=== PATIENT | female | born 1960 | race African-American/Black ===

== ENCOUNTER 2020-03-06 16:34 | Inpatient (IN) | payer MEDICARE, MEDICAID ==
[2020-03-06] MEDS ORDERED: Guaifenesin DM 100-10/5 ML UDCUP PO PRN (20:11)
[2020-03-06] MEDS ORDERED: Acetaminophen 325 MG TAB PO PRN (20:11)
[2020-03-06] MEDS ORDERED: Calcium Carbonate 500 MG ChewTAB PO PRN (20:11)
--- NOTE | 2020-03-06 20:21 | PDOC.HHP ---
Hospitalist HPI - History of Present Illness weakness anorexia History of Present Illness: Case of an 59y/o female with pmhx of ckd stage 4, pvd, DM, hld and htn who comes to hospital due to generalize weakness and anorexia. patient refers she was on her usual state of health until a few days ago when she started with cough with some yellowish sputum, generalize weakness and diarrhea of 2 days of duration. patient states she she very weak today almost unable to hold her own weight for which she decided to come to hospital for evaluation. she was diagnosed with covid 19 pneumonia and renal failure for which hospitalist was called for further evaluation and management. Hospitalist ROS - Review of Systems All other systems reviewed; all pertinent +/- noted in HPI/Subj Hospitalist History - Past Medical History Source: patient - Past Surgical History Other Surgical History: toe amputation L leg bypass - Family History Family History: reports: diabetes mellitus, hypertension - Social History Smoking Status: Former smoker Alcohol: reports: None Drugs: reports: none - Exam General Appearance: NAD, awake alert Eye: PERRL, anicteric sclera ENT: normocephalic atraumatic, no oropharyngeal lesions Neck: supple, symmetric, no JVD Heart: RRR, no murmur, no gallops, no rubs Respiratory: no wheezes, no rales, rhonchi Gastrointestinal: soft, non-tender, non-distended Extremities: no cyanosis, no clubbing, no edema Skin: normal turgor, no lesions, no rashes Neurological: cranial nerve grossly intact, normal sensation to touch, no weakness Musculoskeletal: normal tone, no muscle wasting, generalized weakness Psychiatric: normal affect, normal behavior, A&O x 3 Hospitalist H&P A/P - Problem (1) Pneumonia due to COVID-19 virus Code(s): U07.1 - COVID-19; J12.89 - OTHER VIRAL PNEUMONIA Status: Acute (2) Renal failure (ARF), acute on chronic Code(s): N17.9 - ACUTE KIDNEY FAILURE, UNSPECIFIED; N18.9 - CHRONIC KIDNEY DISEASE, UNSPECIFIED Status: Acute (3) Diabetes Code(s): E11.9 - TYPE 2 DIABETES MELLITUS WITHOUT COMPLICATIONS Status: Acute (4) HTN (hypertension) Code(s): I10 - ESSENTIAL (PRIMARY) HYPERTENSION Status: Acute (5) HLD (hyperlipidemia) Code(s): E78.5 - HYPERLIPIDEMIA, UNSPECIFIED Status: Acute - Plan Plan: 59y/o female with the stated pmhx who present with renal failure and covid 19 pneumonia covid 19 pneumonia - positive test - cxr consistent with LLL pneumonia, abd ct showed multilobar instertitial pneumonia compatible with covid 19 - crp 40, ldg 296 - will send procalcitonin for am, - started on rocephin and azithromycin - culutres taken at ED before transfer - decadron 6mg ivd - id conslted - dvt prophylaxis - 02 supplementation prn renal failure - hx of ckd stage 4 - ivfs - abd ct / renal us - w/o hydropnephrosis, no obstruction. some bladder w some wall thickening - u/a not consistnent w uti, cultures taken at ed before transfer - holding lasix - litigation specialist consulted dm - long acting insulin - ss + acc htn - continue home meds hld - continue statin
[2020-03-06] MEDS ORDERED: cefTRIAXone\\ROCEPHIN 1 GM in Sodium Chloride 0.9% 100 ML IVPB SCH (20:30)
[2020-03-06] MEDS ORDERED: Dextrose 5% in Water 1,000 ML IV PRN (20:33)
[2020-03-06] MEDS ORDERED: Azithromycin 500 MG in Sodium Chloride 0.9% 250 ML 250 ML IVPB SCH (21:30)
[2020-03-06] MEDS: Rosuvastatin 20 MG TAB PO SCH (22:51)
[2020-03-06] MEDS: Metoprolol Tartrate 50 MG TAB PO SCH (22:51)
[2020-03-06] MEDS: Sodium Chloride 0.9% 1,000 ML IV SCH (22:51)
[2020-03-06] MEDS: Insulin Glargine 50 UNITS in Pre-Filled Syringe 1 EACH SC SCH (22:51)
[2020-03-06] MEDS: Ondansetron PF 4 MG/2 ML Vial IVP PRN (22:59)
--- NOTE | 2020-03-07 02:19 | CON ---
DATE OF CONSULTATION: 03/06/2020 HISTORY OF PRESENT ILLNESS: Ms. Andrews is a 59-year-old black female with chronic renal failure from diabetic nephropathy and was initially admitted at [facility] in [place]. She presented with generalized malaise, weakness, and anorexia. She was admitted at that hospital and was noted to have elevated creatinine of 4.7. Her baseline last October 22, 2019, was 2.84. She was empirically volume repleted. I did discuss the case with the nurse practitioner at that time. It was planned that if she should not improve with volume repletion, she will be admitted to [facility] for further management and possible dialysis. REVIEW OF SYSTEMS: Positive for confusion. No nausea. No vomiting. Decreased appetite, ? of fever. Positive for cough. No dysuria. No urinary frequency. No hematochezia. No melena. No hematemesis. HOME MEDICATIONS: Includes the followin. Furosemide 20 mg tablet daily. 2. Vitamin D 50,000 international units one capsule q.week. 3. Tresiba 80 units subcu daily. 4. Aspirin 81 mg tablet once a day. 5. Atorvastatin 80 mg tablet at bedtime. 6. Alendronate 70 mg once a week. 7. Cartia XT 240 mg once a day. 8. Metoprolol succinate ER 25 mg once a day. 9. Gabapentin 400 mg t.i.d. 10. Folic acid 1 mg tablet daily. PAST MEDICAL HISTORY: 1. Chronic renal failure from diabetic nephropathy. 2. Type 2 diabetes mellitus. 3. Hypertension, diabetic neuropathy, chronic joint pain, chronic leg pain, hypovitaminosis D, osteoporosis status post CVA, hyperlipidemia. PAST SURGICAL HISTORY: Patient is status post right leg bypass. SOCIAL HISTORY: The patient lives in [place]. Lives in apartment with her 4 children, retired retail sales representative. She has smoked for 1 year 1 pack a day. Alcohol rarely. No IV drug abuse. Status post blood transfusion. Education, 12th grade. ALLERGIES: METFORMIN. TRAUMA: None. IMMUNIZATIONS: Not up to date. HOSPITALIZATIONS: Please see past medical history. PHYSICAL EXAMINATION: VITAL SIGNS: Blood pressure is 169/86, heart rate 93, respiratory rate 22, temperature 98.4, O2 saturation 94%. GENERAL: Patient is awake, somewhat confused, not in overt distress. SKIN: Adequate turgor. HEENT: She has pinkish conjunctivae. Anicteric sclerae. NECK: No neck mass. No carotid bruits. No JVD. CHEST: No deformities. LUNGS: Clear. Decreased breath sounds. HEART: Normal sinus rhythm. No murmur. No gallops. No rubs. ABDOMEN: Globular, soft, nontender, no masses. EXTREMITIES: No edema. No deformities. NEUROLOGICAL: Patient is confused. Moving all extremities. No tremors. No asterixis. No ataxia. LABORATORY DATA: Tentative report from [facility], creatinine was noted at 5.3. The rest of the labs are still not available. ASSESSMENT AND PLAN: 1. Chronic renal failure from diabetic nephropathy, progressive renal dysfunction. The patient is unimproved in spite of volume repletion done at [facility]. Should the renal function further worsen, my bias is to proceed with dialytic intervention. I did discuss the case with the patient and she was a bit confused. For that reason, we will discuss about dialysis again tomorrow. I have tried to get in touch with the family, but there are no available phone number from the family. 2. I would suggest we repeat blood work with the patient today. Please note, CBC and CMP have been ordered by the hospitalist. I would suggest we repeat CBC and basic metabolic panel again for tomorrow. ADDENDUM: Medication review for this hospitalization showed the followin. Ecotrin 81 mg daily. 2. Azithromycin 500 mg IV daily. 3. Calcium carbonate 1000 mg every 4 hours. 4. Decadron 6 mg IV daily. 5. Lovenox 30 mg subcu daily. 6. Folvite 1 mg once a day. 7. Humalog sliding scale. 8. Lopressor 50 mg p.o. b.i.d. 9. Crestor 40 mg q.p.m. 10. Normal saline 70 cc/h. The patient was also diagnosed with COVID-19 pneumonia. ID consult has been done. Renal ultrasound showed no obstruction. Please note, this patient has chronic renal failure from diabetic nephropathy, which has been progressive. Job ID: [id number]
[2020-03-07 05:07] LABS: ALT (SGPT) Less than 7 U/L (8-55); AST (SGOT) 19 U/L (5-34); Albumin 1.9 g/dL (3.5-5.0); Alkaline Phosphatase 58 U/L (40-110); Anion Gap 16 mmol/L (10-20); BUN (Urea Nitrogen) 38 mg/dL (9.8-20.1); Band 15 % (5-11); Bilirubin, Total Less than 0.2 mg/dL (0.2-1.2); Calc. Creatinine Clearance 14 mL/min (70-130); Calcium 7.4 mg/dL (7.8-10.44); Chloride 117 mmol/L (98-107); Estimated GFR-MDRD 8; Glucose 100 mg/dL (70-105); Hemoglobin 10.2 g/dL (12.0-16.0); Lymphocytes 14 % (21-51); MDiff Complete? YES; Mean Corpuscular HGB CONC 31.1 g/dL (32.0-36.0); Mean Corpuscular Hemoglobin 30.7 pg (27.0-31.0); Mean Corpuscular Volume 98.7 fL (78.0-98.0); Mean Platelet Volume 9.7 fL (7.4-10.4); Monocytes 4 % (0-10); Neutrophil 67 % (42-75); Platelet Count 91 thou/uL (130-400); Platelet Morphology Comment Appears Decreased; Potassium 4.9 mmol/L (3.5-5.1); Protein, Total 4.9 g/dL (6.0-8.3); RBC Distribution Width 11.8 % (11.5-14.5); Red Blood Cell (RBC) Count 3.33 mill/uL (4.20-5.40); Sodium 136 mmol/L (136-145); White Blood Cell (WBC) Count 7.1 thou/uL (4.8-10.8)
[2020-03-07 05:15] LABS: Carbon Dioxide 8 mmol/L (22-29)
[2020-03-07] MEDS ORDERED: Sodium Bicarbonate 150 MEQ in Sterile Water Injection 1,000 ML IV SCH (06:00)
[2020-03-07] MEDS: Ondansetron PF 4 MG/2 ML Vial IVP PRN (06:40)
[2020-03-07] MEDS ORDERED: Tuberculin PPD 0.1 ML VIAL I-DERMAL SCH (08:30)
[2020-03-07] MEDS ORDERED: Epoetin (ESRD) 20,000 UNITS/ML SC SCH (08:30)
--- NOTE | 2020-03-07 08:55 | PRG ---
DATE OF SERVICE: 03/07/2020 SUBJECTIVE: Ms. Andrews is a 59-year-old black female with a history of chronic renal failure from diabetic nephropathy and was admitted due to a COVID-19 pneumonia. She was also admitted for further management of her chronic renal failure, which has progressed over the last several months. She is also noted to be severely acidotic. I had a long discussion with this patient and she has agreed to proceed with the dialysis. She voices no new complaints. She denies any chest pain or shortness of breath. OBJECTIVE: VITAL SIGNS: Blood pressure is noted at 126/73, heart rate 86, respiratory rate 18, temperature 97.8, and O2 saturation 94%. GENERAL: The patient is awake, alert, supine, comfortable, not in overt distress. SKIN: Adequate turgor. HEENT: Pinkish, slightly pale conjunctivae. Anicteric sclerae. NECK: No neck mass. No carotid bruits. No JVD. CHEST: No deformities. LUNGS: Decreased breath sounds. HEART: Normal sinus rhythm. No murmur. No gallops. No rubs. ABDOMEN: Globular, soft, and nontender. No masses. EXTREMITIES: No edema. No deformities. MEDICATIONS: Medications of March 07, 2020, were reviewed. LABORATORY DATA: Laboratories of March 07, 2020; sodium 136, potassium 4.9, chloride 117, carbon dioxide 8, BUN 38, creatinine 5.7, glucose 139, GFR 8 mL/minute, calcium 7.4. AST 19, ALT less than 7, and albumin 1.9. ASSESSMENT AND PLAN: 1. Chronic renal failure-progressive azotemia. I think she may have reached ESRD proportion. Her creatinine has been progressively worsening in the last several months. We will initiate hemodialysis due to the severely depressed GFR as well as severe acidemia. Surgical consult has been done with Dr. Ramirez for placement of a temporary hemodialysis catheter. Once the access is available, we will initiate dialysis. 2. Anemia, start Epogen and iron supplementation. 3. COVID-19 pneumonia. Supportive care. Overall prognosis remains guarded. Job ID: [id number] MTDD
[2020-03-07] MEDS ORDERED: Dexamethasone 4 mg/ml Vial SLOW IVP SCH (09:00)
[2020-03-07] MEDS: Metoprolol Tartrate 50 MG TAB PO SCH ×2 (10:08→19:52)
[2020-03-07] MEDS: Aspirin 81 mg Enteric Coated Tablet PO SCH (10:08)
[2020-03-07] MEDS: Enoxaparin Sodium 30 MG/0.3 ML SYRINGE SC SCH (10:09)
[2020-03-07] MEDS: Folic Acid 1 MG TAB PO SCH (10:09)
[2020-03-07 11:50] LABS: HBSAB Concentration Less than 8.00 mIU/mL; HBSAg Index 0.15 S/CO (0-0.99); Hep B Core Total Ab Non-Reactive (NonReactive); Hep B Surf AB Non-Reactive (NonReactive); Hep B Surf Ag Non-Reactive S/CO (NonReactive); Hep C IgG Ab Non-Reactive (NonReactive); Hep C Index 0.08 S/CO (0-0.79)
[2020-03-07] MEDS: Sodium Chloride 0.9% 1,000 ML IV SCH (11:56)
[2020-03-07] MEDS: Sodium Bicarbonate 150 MEQ in Dextrose 5 %-0.45 % NaCl 1,000 ML IV SCH (13:55)
[2020-03-07] MEDS ORDERED: Heparin 10,000 UNITS/ 10 ML VIAL ONE (14:54)
--- NOTE | 2020-03-07 15:37 | PDOC.HOSPP ---
- Subjective Subjective: This is a 59 years old -[place] female who has significant past medical history of CKD stage IV, diabetic neuropathy, diabetes type 2, hypertension, who was initially admitted at [facility] bobbi [facility]ramer in [facility] for Covid pneumonia 19 pneumonia, and renal failure. However, her renal function not improve despite volume expansion. She was subsequently transferred to [facility] for further management, and possible dialysis. No fever, breathing about the same. Sat'ng well on room air. Had hypoglycemic epsidode, BG <60 - Objective Vital Signs & Weight: Vital Signs (12 hours) Temp Pulse Resp BP Pulse Ox 03/07/20 13:00 97.7 F 93 18 182/78 H 98 03/07/20 10:34 98 F 94 18 183/88 H 95 03/07/20 04:00 97.8 F 86 18 126/73 94 L Weight Weight 180 lb I&O: 03/06/20 03/07/20 03/08/20 06:59 06:59 06:59 Intake Total 1049 240 Output Total 100 Balance 1049 140 Result Diagrams: 03/07/20 04:23 03/07/20 04:23 Additional Labs: Accuchecks 03/06/20 22:51 POC Glucose 139 H Radiology Reviewed by me: Yes EKG Reviewed by me: Yes Hospitalist ROS - Medication Medications: Active Medications Generic Name Dose Route Start Last Admin Trade Name Freq PRN Reason Stop Dose Admin Aspirin 81 mg 03/07/20 09:00 03/07/20 10:08 Aspirin 81 Mg Enteric Coated Tablet PO 81 mg DAILY CINDY Administration Enoxaparin Sodium 30 mg 03/07/20 09:00 03/07/20 10:09 Enoxaparin Sodium 30 Mg/0.3 Ml Syringe SC Not Given 0900 CINDY Folic Acid 1 mg 03/07/20 09:00 03/07/20 10:09 Folic Acid 1 Mg Tab PO 1 mg DAILY CINDY Administration Guaifenesin/Dextromethorphan 15 ml 03/06/20 20:11 03/06/20 22:56 Guaifenesin Dm 100-10/5 Ml Udcup PO 15 ml Q4H PRN Administration Cough Insulin Glargine 50 units/ 0.5 mls @ 0 mls/hr 03/06/20 21:00 03/06/20 22:51 Miscellaneous Medication SC 0.5 mls HS CINDY Administration Sodium Bicarbonate 150 meq/ 1,150 mls @ 75 mls/hr 03/07/20 10:45 03/07/20 13:55 Dextrose/Sodium Chloride IV 1,150 mls .[id number] CINDY Administration Metoprolol Tartrate 50 mg 03/06/20 21:00 03/07/20 10:08 Metoprolol Tartrate 50 Mg Tab PO 50 mg BID CINDY Administration Ondansetron HCl 4 mg 03/06/20 20:11 03/07/20 06:40 Ondansetron Pf 4 Mg/2 Ml Vial IVP 4 mg Q6H PRN Administration Nausea/Vomiting Rosuvastatin Calcium 40 mg 03/06/20 21:00 03/06/20 22:51 Rosuvastatin 20 Mg Tab PO 40 mg QPM CINDY Administration Sodium Chloride 10 ml 03/06/20 21:00 03/07/20 10:09 Flush - Normal Saline 10 Ml Syringe IVF 10 ml Q12HR CINDY Administration Tuberculin PPD 0.1 ml 03/07/20 08:30 03/07/20 11:44 Tuberculin Ppd 0.1 Ml Vial I-DERMAL 03/10/20 08:31 0.1 ml ONE CINDY Administration - Exam General Appearance: NAD Eye: PERRL ENT: normocephalic atraumatic Neck: supple Heart: RRR, no murmur Respiratory: CTAB Gastrointestinal: soft, non-tender Extremities: no cyanosis Skin: normal turgor, no lesions Neurological: cranial nerve grossly intact Musculoskeletal: normal tone, normal strength Psychiatric: normal affect, normal behavior, A&O x 3 Hosp A/P - Plan This is a 59 years old -[place] female who has significant past medical history of CKD stage IV, diabetic neuropathy, diabetes type 2, hypertension, who was initially admitted at [facility] in [facility] for Covid pneumonia 19 pneumonia, and renal failure. However, her renal function not improve despite volume expansion. She was subsequently transferred to [facility] for further management, and possible dialysis. COVID-19 pneumonia --cont Decadron, empric abx. --not a candidate for Remdesevir d/t renal function --cont supportive cares. Follow AM labs SAM/CKD stage IV --cont IVF hydration, further mgt as per Dr. Sterling --Surgery was consulted for fistula placement Metabolic acidosis --cont sodium bicarb gtt Diabetes type 2 with hypoglycemia --check A1C, add D5 to IVF Hypertension --cont Metoprolol Dyslipidemia --cont statin DVT ppx: Lovenox GI ppx: Pepcid Code Status: Full Anticipated Dispo: Home when medically stable
--- NOTE | 2020-03-07 15:55 | ULT ---
ULTRASOUND VESSEL MAPPING DIALYSIS ACCESS: HISTORY: End stage renal disease. COMPARISON: None. FINDINGS: Real-time, lockhart scale, color, and spectral analysis of the bilateral upper extremity venous and arter iosus was performed. The bilateral internal jugular and subclavian and maxillary veins are patent. RIGHT SIDE: Brachial artery 3.8 mm Radial artery 2.1 mm Ulnar artery 2.4 mm Cephalic Vein: Proximal humerus 2.7 mm Mid humerus 2.5 mm Distal 2.9 mm Elbow 2.5 mm Proximal forearm 2.6 mm Mid 1.8 mm Distal 1.6 mm Basilic Vein: Proximal humerus 2.4 mm Mid humerus 2.4 mm Distal 3.3 mm Elbow 3.0 mm Proximal forearm 1.2 mm Mid 1.7 mm Distal 1.2 mm LEFT SIDE: Brachial artery 5.3 mm Radial artery 1.8 mm Ulnar artery 1.9 mm Cephalic Vein: Proximal humerus not seen Mid humerus not seen Distal 1.9 mm Elbow 3.3 mm Proximal forearm 2.7 mm Mid 2.5 mm Distal 2.4 mm Basilic Vein: Proximal humerus 2.9 mm Mid humerus 3.4 mm Distal 2.8 mm Elbow 2.2 mm Proximal forearm 1.6 mm Mid 1.2 mm Distal 0.8 mm IMPRESSION: Vascular size as above. POS: HOME
--- NOTE | 2020-03-07 19:10 | CON ---
DATE OF CONSULTATION: 03/07/2020 REASON FOR CONSULTATION: Pneumonia. HISTORY OF PRESENT ILLNESS: A 59-year-old first admission to this hospital, who has a history of type 2 diabetes with CKD stage 4 to 5, and hypertension with a 1-week history of general malaise, weakness, and cough with some sputum production. She has had diarrhea for 2 days now and was admitted after COVID-19 test was positive. She also was noticed with severe decrease in glomerular filtration rate. On arrival, BP was 169/86. She was afebrile T-max 99.3 and O2 saturations were 94 on room air. Did not appear in distress, alert. Lung exam was normal. Heart exam was normal. Abdomen soft. Other findings on admission; white cell count 7.1, hemoglobin 10.2, platelets 91, and 15% bands. Sodium 136, creatinine 5.7, ALT less than 7, AST 19, and albumin 1.9. We have hepatitis B and C serologies nonreactive. I do not have a COVID serology documented here. They may have been done elsewhere. I do not have a chest x-ray either. Currently, Ms. Andrews is lying in bed, somewhat apathetic. She will answer questions with a few words. Does not elaborate. No headaches. No visual symptoms, sore throat, odynophagia, or dysphagia. Some cough and some sputum production. No back pain. No abdominal pain. Still has normal urine output. Persistent diarrhea. No joint symptoms. No anosmia. No neurological symptoms. PAST MEDICAL HISTORY: Type 2 diabetes, hypertension, and CKD stage 4 to 5. Medical history includes peripheral vascular disease. ALLERGIES: CEPHALEXIN AND METFORMIN. PAST SURGICAL HISTORY: Toe amputation. She has had left lower extremity revascularization procedure in the past, not clear which one. FAMILY HISTORY: Diabetes type 2 and hypertension. SOCIAL HISTORY: Former smoker. Lives in [place] with family. No alcoholic beverage use. CURRENT MEDICATIONS: 1. Azithromycin. 2. Ceftriaxone. 3. Decadron. 4. Enoxaparin. 5. Levofloxacin. 6. Crestor. PHYSICAL EXAMINATION: VITAL SIGNS: T-max 99.3, BP 180/78, and saturating 98% room air. SKIN: Normal. No lymphadenopathy. HEENT: Ocular movements conjugate. Oral cavity normal. NECK: Supple. LUNGS: Symmetric air entry. No crackles or wheezing. HEART: S1 and S2. Regular rate. ABDOMEN: Soft, not distended. EXTREMITIES: No joint inflammatory activity. No edema. Moves extremities equally. NEUROLOGIC: Cognitive function appears to be intact. She is not very talkative and her answers are very, very brief, she does not elaborate, but overall speech pattern appears to be otherwise normal. No difficulty in finding words. LABORATORY DATA: White cell count 7.1, hemoglobin 10.2, platelets 91, and 15% bands. Carbon dioxide was 8, potassium 4.9, creatinine 5.7, and glucose 100. ASSESSMENT: End-stage renal disease secondary to type 2 diabetes, hypertension, presumably COVID positive status according to the note. I did not see documentation of that in the record. DISCUSSION: The patient has normal lung examination, saturating at 98% on room air. So, we will go ahead and withhold Decadron. She is in the first week of illness and we do not want to suppress any body production or interferon production, which is essential for viremia control. If she develops hypoxemia, then we may restart Decadron. She is not eligible for remdesivir. There are no other antiviral options available, so if she develops a requirement for O2 supplementation and we will go ahead and start Decadron then. Followup chest x-ray and so one. She probably does not require broad-spectrum coverage. We will go ahead and discontinue antimicrobial therapy as well. Job ID: [id number]
[2020-03-07] MEDS: Rosuvastatin 20 MG TAB PO SCH (19:52)
[2020-03-07] MEDS: guaiFENesin ER 600 MG TAB PO SCH (19:52)
[2020-03-07] MEDS: EPOETIN ALFA-EPBX (ESRD) 4,000 UNIT/ML VIAL SC SCH (20:03)
--- NOTE | 2020-03-07 20:37 | CON ---
DATE OF CONSULTATION: HISTORY OF PRESENT ILLNESS: Melody Andrews is a 59-year-old female, with acute renal failure with a history of chronic kidney disease seen for COVID pneumonia with acute renal failure in need of dialysis access. She is acidotic. Her CO2 is 8, sodium 136, potassium 4.9, creatinine 5.7, and GFR 8. She has a long history of chronic kidney disease with compromised GFR over the past year or two. She has a history of diabetes mellitus, insulin dependent; and hypertension. She was hospitalized on 03/06/2020. Dr. Luis Sterling had seen her and asked me to place a dialysis catheter. Ultrasound vein mapping obtained today revealed adequate veins for a primary fistula in her right arm, but the left arm cephalic vein was not seen proximally, although adequately sized at the antecubital area. It was well dilated at the wrist. Plan at this time is to place a groin Trialysis catheter, protect veins for future dialysis access, if needed. ALLERGIES: CEPHALEXIN AND METFORMIN. SOCIAL HISTORY: Tobacco use in the past. Alcohol, none. Drug use, none. Patient lives in [place]. She lives with her children. She is a retired retail shift leader. PAST MEDICAL HISTORY: Patient has had a stroke in the past. She has PAD. She has had toe amputations. She reports having had a femoral-popliteal on the right. Diabetes mellitus, insulin-dependent; hypertension; chronic kidney disease; COVID pneumonia; disability; stroke; unemployed; and PAD. REVIEW OF SYSTEMS: Ten-point noncontributory. No cardiac history. PHYSICAL EXAMINATION: VITAL SIGNS: Height 5 feet 9 inches, 180 pounds, 26 BMI. 97.7, 93, and 182/78. HEAD, EARS, EYES, NOSE, AND THROAT: Unremarkable. LUNGS: Clear to auscultation. CARDIAC: Regular rate and rhythm, without murmur, rub, or gallop. ABDOMEN: Soft. Nontender. EXTREMITIES: Palpable radial pulses. IV wrist. Extremities unremarkable. Palpable femoral pulses. ASSESSMENT/PLAN: 1. Acute renal failure. Severe acidosis. Plan: Right femoral vein Trialysis catheter. She understands risks and benefits, consents. Ultrasound vein mapping to see if she adequate veins for future fistula if needed. We will protect her veins. IV access, blood draws through groin catheter. 2. Diabetes mellitus, insulin-dependant. 3. Hypertension. 4. History of stroke. 5. COVID pneumonia. Job ID: [id number]
[2020-03-07] MEDS: Insulin Glargine 50 UNITS in Pre-Filled Syringe 1 EACH SC SCH (22:16)
[2020-03-07] MEDS: Labetalol HCl 100 MG/20 ML VIAL SLOW IVP PRN (22:28)
[2020-03-08 05:51] LABS: #Lymphocytes 0.6 thou/uL (1.20-3.40); #Monocytes 0.4 thou/uL (0.11-0.59); #Neutrophils 3.6 thou/uL (1.40-6.50); %Eosinophils 0.1 % (0.0-10.0); %Lymphocytes 13.7 % (21.0-51.0); %Monocytes 8.2 % (0.0-10.0); Mean Corpuscular HGB CONC 33.2 g/dL (32.0-36.0); Mean Corpuscular Volume 96.5 fL (78.0-98.0); Mean Platelet Volume 9.4 fL (7.4-10.4); Platelet Count 117 thou/uL (130-400); RBC Distribution Width 11.5 % (11.5-14.5); White Blood Cell (WBC) Count 4.6 thou/uL (4.8-10.8)
[2020-03-08 05:57] LABS: Hemoglobin A1c 11.4 % (4.0-6.0)
[2020-03-08] MEDS: Sodium Bicarbonate 150 MEQ in Dextrose 5 %-0.45 % NaCl 1,000 ML IV SCH ×2 (05:57→10:19)
[2020-03-08 06:06] LABS: Prothrombin Time 13.3 sec (12.0-14.7)
[2020-03-08 06:15] LABS: Anion Gap 15 mmol/L (10-20); BUN (Urea Nitrogen) 35 mg/dL (9.8-20.1); Calc. Creatinine Clearance 14 mL/min (70-130); Calcium 7.2 mg/dL (7.8-10.44); Carbon Dioxide 20 mmol/L (22-29); Chloride 107 mmol/L (98-107); Estimated GFR-MDRD 8; Glucose 154 mg/dL (70-105); Potassium 4.3 mmol/L (3.5-5.1); Sodium 138 mmol/L (136-145)
[2020-03-08] MEDS: HumaLOG 300 UNITS/3 ML VIAL SC PRN ×2 (06:43→18:27)
[2020-03-08] MEDS: Labetalol HCl 100 MG/20 ML VIAL SLOW IVP PRN ×2 (06:50→16:07)
[2020-03-08] MEDS: Zinc Sulfate 220 MG CAP PO SCH (09:38)
[2020-03-08] MEDS: Metoprolol Tartrate 50 MG TAB PO SCH ×2 (09:38→21:20)
[2020-03-08] MEDS: Ascorbic Acid 500 mg Chewable Tablet PO SCH (09:38)
[2020-03-08] MEDS: Famotidine 20 MG TAB PO SCH (09:38)
[2020-03-08] MEDS: Aspirin 81 mg Enteric Coated Tablet PO SCH (09:38)
[2020-03-08] MEDS: Folic Acid 1 MG TAB PO SCH (09:38)
[2020-03-08] MEDS: guaiFENesin ER 600 MG TAB PO SCH ×2 (09:39→21:20)
[2020-03-08] MEDS: Enoxaparin Sodium 30 MG/0.3 ML SYRINGE SC SCH (09:39)
--- NOTE | 2020-03-08 10:46 | PRG ---
DATE OF SERVICE: 03/08/2020 SUBJECTIVE: Ms. Andrews is a 59-year-old black female, chronic renal failure from diabetic nephropathy and was admitted for COVID-19 pneumonia. Due to the worsening renal dysfunction, she was also initiated on hemodialysis. She was noted to be severely acidemic on admission. She underwent hemodialysis yesterday. Our plan is to do a 3-hour hemodialysis today. The patient is requesting to resume back her Cardizem. She is also noted to be tachycardic. She denies any shortness of breath or chest pain. OBJECTIVE: VITAL SIGNS: Blood pressure 188/91, heart rate 99, respiratory rate 14, O2 saturation 98%. GENERAL: The patient is awake, supine, comfortable, not in overt distress. SKIN: Adequate turgor. HEENT: She has slightly pale conjunctivae. Anicteric sclerae. NECK: No neck mass. No carotid bruits. No JVD. CHEST: No deformities. LUNGS: Clear breath sounds. No wheezing. No crackles. HEART: Normal sinus rhythm. No murmur. No gallops. No rubs. ABDOMEN: Globular, soft, nontender. No masses. EXTREMITIES: Positive for edema. MEDICATIONS: Medications of March 08, 2020, reviewed. LABORATORY DATA: Laboratories of March 08, 2020; white count 4.6, hemoglobin 9. Sodium 138, potassium 4.3, chloride 107, carbon dioxide 20, BUN 35, creatinine 5.33, glucose 154, calcium 7.2. C-reactive protein is 9.4. Hemoglobin A1c is 11.4. ASSESSMENT AND PLAN: 1. Chronic renal failure/acute kidney injury - hemodialysis has been initiated due to the progressive azotemia as well as severe acidemia. Our plan is to do a 3-hour hemodialysis today with fluid removal. 2. Labile hypertension/tachycardia. Cardizem CD - 180 mg tablet daily was restarted. 3. Anemia - the patient has been started on Epogen at 7500 units subcu q.7 days. Recheck CBC and basic metabolic panel in a.m. Job ID: [id number]
--- NOTE | 2020-03-08 12:28 | PDOC.HOSPP ---
- Subjective Encounter Date: 03/08/20 Encounter Time: 10:50 Subjective: Patient is resting she is in the room air. Blood pressure is quite elevated. She got 1 dialysis via femoral cath last evening. Plan to get another one this evening. She is ambulating to the restroom without any shortness of breath and d chest discomfort. - Objective Vital Signs & Weight: Vital Signs (12 hours) Temp Pulse Resp BP BP Pulse Ox 03/08/20 09:45 98.4 F 104 H 19 187/86 H 100 03/08/20 06:50 99 188/91 H 03/08/20 04:00 98.1 F 102 H 14 179/88 H 98 03/08/20 02:09 98.4 F 102 H 16 141/83 H 98 03/08/20 01:10 98 Weight Weight 180 lb I&O: 03/07/20 03/08/20 03/09/20 06:59 06:59 06:59 Intake Total 1049 2662 Output Total 280 Balance 1049 2382 Result Diagrams: 03/08/20 05:11 03/08/20 05:11 Additional Labs: Accuchecks 03/07/20 03/07/20 03/07/20 21:19 20:10 17:25 POC Glucose 113 H 85 105 H Hospitalist ROS - Medication Medications: Active Medications Generic Name Dose Route Start Last Admin Trade Name Lori PRN Reason Stop Dose Admin Ascorbic Acid 1,000 mg 03/08/20 09:00 03/08/20 09:38 Ascorbic Acid 500 Mg Chewable Tablet PO 1,000 mg DAILY CINDY Administration Aspirin 81 mg 03/07/20 09:00 03/08/20 09:38 Aspirin 81 Mg Enteric Coated Tablet PO 81 mg DAILY CINDY Administration Enoxaparin Sodium 30 mg 03/07/20 09:00 03/08/20 09:39 Enoxaparin Sodium 30 Mg/0.3 Ml Syringe SC 30 mg 0900 CINDY Administration Epoetin Jose-epbx 7,500 unit 03/07/20 12:00 03/07/20 20:03 Epoetin Jose-Epbx (Esrd) 4,000 Unit/Ml Vial SC 7,500 unit Q7D CINDY Administration Famotidine 20 mg 03/08/20 09:00 03/08/20 09:38 Famotidine 20 Mg Tab PO 20 mg DAILY CINDY Administration Folic Acid 1 mg 03/07/20 09:00 03/08/20 09:38 Folic Acid 1 Mg Tab PO 1 mg DAILY CINDY Administration Guaifenesin 600 mg 03/07/20 21:00 03/08/20 09:39 Guaifenesin Er 600 Mg Tab PO 600 mg Q12HR CINDY Administration Guaifenesin/Dextromethorphan 15 ml 03/06/20 20:11 03/06/20 22:56 Guaifenesin Dm 100-10/5 Ml Udcup PO 15 ml Q4H PRN Administration Cough Insulin Glargine 50 units/ 0.5 mls @ 0 mls/hr 03/06/20 21:00 03/07/20 22:16 Miscellaneous Medication SC Not Given HS [facility] Sodium Bicarbonate 150 meq/ 1,150 mls @ 75 mls/hr 03/07/20 10:45 03/08/20 10:19 Dextrose/Sodium Chloride IV 1,150 mls .[id number] CINDY Administration Insulin Human Lispro 0 units 03/06/20 20:33 03/08/20 06:43 Humalog 300 Units/3 Ml Vial SC 2 unit .MODERATE SLIDING SC PRN Administration Moderate Correctional Scale Labetalol HCl 20 mg 03/07/20 15:35 03/08/20 06:50 Labetalol Hcl 100 Mg/20 Ml Vial SLOW IVP 20 mg Q4H PRN Administration SBP>160 or DBP>90 Metoprolol Tartrate 50 mg 03/06/20 21:00 03/08/20 09:38 Metoprolol Tartrate 50 Mg Tab PO 50 mg BID CINDY Administration Ondansetron HCl 4 mg 03/06/20 20:11 03/07/20 06:40 Ondansetron Pf 4 Mg/2 Ml Vial IVP 4 mg Q6H PRN Administration Nausea/Vomiting Rosuvastatin Calcium 40 mg 03/06/20 21:00 03/07/20 19:52 Rosuvastatin 20 Mg Tab PO 40 mg QPM CINDY Administration Sodium Chloride 10 ml 03/06/20 21:00 03/08/20 10:19 Flush - Normal Saline 10 Ml Syringe IVF 10 ml Q12HR CINDY Administration Tuberculin PPD 0.1 ml 03/07/20 08:30 03/07/20 11:44 Tuberculin Ppd 0.1 Ml Vial I-DERMAL 03/10/20 08:31 0.1 ml ONE CINDY Administration Zinc Sulfate 220 mg 03/08/20 09:00 03/08/20 09:38 Zinc Sulfate 220 Mg Cap PO 220 mg DAILY CINDY Administration - Exam General Appearance: NAD, awake alert, ill appearing Eye: PERRL ENT: normocephalic atraumatic Neck: supple Heart: RRR Respiratory: CTAB, normal chest expansion Gastrointestinal: soft, normal bowel sounds Neurological: no focal deficits Psychiatric: A&O x 3 Hosp A/P - Plan COVID-19 pneumonia --Appreciate ID input. She is in the first week of illness. Both antibiotics and Decadron have been discontinued. She does not require oxygen supplementation at this time. Will follow the clinical course and take chest x- ray as needed. -We will follow on inflammatory markers. --not a candidate for Remdesevir d/t renal function SAM/CKD stage IV End-stage renal disease on hemodialysis started yesterday. Via femoral cath. -Ultrasound vein mapping. Metabolic acidosis --She is still on sodium bicarb gtt -Will DC as she started to have dialysis and bicarb level seems to be improving and today at 20 Diabetes type 2 with hypoglycemia --check A1C, add D5 to IVF Hypertension --cont Metoprolol Dyslipidemia --cont statin Anemia of kidney disease -She is on Retacrit DVT ppx: Lovenox GI ppx: Pepcid Code Status: Full Anticipated Dispo: Home when medically stable
[2020-03-08] MEDS: Insulin Glargine 50 UNITS in Pre-Filled Syringe 1 EACH SC SCH (21:20)
[2020-03-08] MEDS: Rosuvastatin 20 MG TAB PO SCH (21:20)
[2020-03-09] MEDS: Ondansetron PF 4 MG/2 ML Vial IVP PRN (02:47)
[2020-03-09] MEDS: Dextrose 50% Abboject 50 ML SYRINGE SLOW IVP PRN ×2 (05:41→23:06)
[2020-03-09] MEDS: Sodium Bicarbonate 150 MEQ in Dextrose 5 %-0.45 % NaCl 1,000 ML IV SCH (05:44)
[2020-03-09 08:28] LABS: #Lymphocytes 0.9 thou/uL (1.20-3.40); #Monocytes 0.8 thou/uL (0.11-0.59); #Neutrophils 5.6 thou/uL (1.40-6.50); %Basophils 0.5 % (0.0-1.0); %Eosinophils 0.2 % (0.0-10.0); %Lymphocytes 11.7 % (21.0-51.0); %Monocytes 11.1 % (0.0-10.0); %Neutrophils 76.6 % (42.0-75.0); Hemoglobin 9.2 g/dL (12.0-16.0); Mean Corpuscular HGB CONC 32.9 g/dL (32.0-36.0); Mean Corpuscular Hemoglobin 31.8 pg (27.0-31.0); Mean Corpuscular Volume 96.8 fL (78.0-98.0); Platelet Count 155 thou/uL (130-400); RBC Distribution Width 11.6 % (11.5-14.5); Red Blood Cell (RBC) Count 2.91 mill/uL (4.20-5.40); White Blood Cell (WBC) Count 7.2 thou/uL (4.8-10.8)
[2020-03-09] MEDS: Enoxaparin Sodium 30 MG/0.3 ML SYRINGE SC SCH (08:43)
[2020-03-09] MEDS: Famotidine 20 MG TAB PO SCH (08:44)
[2020-03-09] MEDS: Zinc Sulfate 220 MG CAP PO SCH (08:44)
[2020-03-09] MEDS: Aspirin 81 mg Enteric Coated Tablet PO SCH (08:44)
[2020-03-09] MEDS: Ascorbic Acid 500 mg Chewable Tablet PO SCH (08:44)
[2020-03-09] MEDS: guaiFENesin ER 600 MG TAB PO SCH ×2 (08:44→19:32)
[2020-03-09] MEDS: Folic Acid 1 MG TAB PO SCH (08:44)
[2020-03-09] MEDS: Metoprolol Tartrate 50 MG TAB PO SCH ×2 (08:44→19:33)
[2020-03-09 08:50] LABS: Anion Gap 11 mmol/L (10-20); BUN (Urea Nitrogen) 23 mg/dL (9.8-20.1); CRP (Inflammatory) 4.92 mg/dL (= or < 0.5); Calc. Creatinine Clearance 18 mL/min (70-130); Calcium 6.9 mg/dL (7.8-10.44); Carbon Dioxide 28 mmol/L (22-29); Chloride 102 mmol/L (98-107); Estimated GFR-MDRD 11; Glucose 79 mg/dL (70-105); Potassium 3.2 mmol/L (3.5-5.1); Sodium 138 mmol/L (136-145)
--- NOTE | 2020-03-09 12:05 | PRG ---
DATE OF SERVICE: 03/09/2020 SUBJECTIVE: Ms. Andrews is a 59-year-old black female who was admitted for COVID- 19 pneumonia. We are following her up for her progressive azotemia. Due to her severe metabolic acidosis and worsening renal dysfunction, the patient was initially on dialysis. She underwent a 2-hour hemodialysis yesterday and tolerated said treatment. Her metabolic acidosis is much improved. For that reason, we will be discontinuing her isotonic bicarbonate drip. She voices no new complaints except for the on and off cough. No chest pain or shortness of breath. OBJECTIVE: VITAL SIGNS: Blood pressure is noted at 170/76, heart rate 90, respiratory rate 20, temperature 97.7, O2 saturation 98%. GENERAL: Awake, alert, comfortable, not in distress. SKIN: Adequate turgor. HEENT: Slightly pale conjunctivae. Anicteric sclerae. NECK: No neck mass. No carotid bruits. No JVD. CHEST: No deformities. LUNGS: Decreased breath sounds. HEART: Normal sinus rhythm. No murmur. No gallops. No rubs. ABDOMEN: Globular, soft, nontender. No masses. EXTREMITIES: No edema, no deformities. MEDICATIONS: March 09, 2020, reviewed. LABORATORIES: March 09, 2020; white count 7.2, hemoglobin 9.2. Sodium 138, potassium 3.2, chloride 102, carbon dioxide 28, BUN 23, creatinine 4.25. GFR 11 mL/minute, calcium 6.9. C-reactive protein is 4.92. ASSESSMENT AND PLAN: 1. COVID-19 pneumonia. Continue supportive care on steroids. 2. Chronic renal failure/acute kidney injury. Improving renal function with hemodialysis. In addition, metabolic acidosis, currently resolved. 3. We will discontinue isotonic bicarbonate. Continue current dialytic regimen. No indication for any dialysis this morning. We will make outpatient arrangements for outpatient dialysis with this patient. The patient has a temporary femoral dialysis catheter. Dr. Ramirez to follow up for placement of AV fistula as well as cuffed hemodialysis catheter. 4. Recheck CBC and basic metabolic profile in a.m. Job ID: [id number] MTDD
--- NOTE | 2020-03-09 13:22 | PDOC.HOSPP ---
- Subjective Encounter Date: 03/09/20 Encounter Time: 10:20 Subjective: Patient is resting she is in the room air. Her blood pressure is little elevated. She will be getting another dialysis tomorrow. - Objective Vital Signs & Weight: Vital Signs (12 hours) Temp Pulse Resp BP Pulse Ox 03/09/20 11:45 97.8 F 85 20 157/77 H 97 03/09/20 09:00 97.7 F 90 20 170/76 H 98 03/09/20 02:47 98.6 F 92 20 158/89 H 98 03/09/20 01:42 98 Weight Weight 180 lb I&O: 03/08/20 03/09/20 03/10/20 06:59 06:59 06:59 Intake Total 2662 720 Output Total 280 Balance 2382 720 Result Diagrams: 03/09/20 07:51 03/09/20 07:51 Additional Labs: Accuchecks 03/09/20 03/09/20 03/08/20 11:01 06:14 21:28 POC Glucose 114 H 102 H 141 H 03/08/20 16:01 POC Glucose 193 H Hospitalist ROS - Medication Medications: Active Medications Generic Name Dose Route Start Last Admin Trade Name Freq PRN Reason Stop Dose Admin Ascorbic Acid 1,000 mg 03/08/20 09:00 03/09/20 08:44 Ascorbic Acid 500 Mg Chewable Tablet PO 1,000 mg DAILY CINDY Administration Aspirin 81 mg 03/07/20 09:00 03/09/20 08:44 Aspirin 81 Mg Enteric Coated Tablet PO 81 mg DAILY CINDY Administration Dextrose/Water 25 gm 03/06/20 20:33 03/09/20 05:41 Dextrose 50% Abboject 50 Ml Syringe SLOW IVP 25 gm PRN PRN Administration Hypoglycemia Diltiazem HCl 180 mg 03/09/20 09:00 03/09/20 08:44 Diltiazem Hcl Cd 180 Mg Capsule PO 180 mg DAILY CINDY Administration Enoxaparin Sodium 30 mg 03/07/20 09:00 03/09/20 08:43 Enoxaparin Sodium 30 Mg/0.3 Ml Syringe SC 30 mg 0900 CINDY Administration Epoetin Jose-epbx 7,500 unit 03/07/20 12:00 03/07/20 20:03 Epoetin Jose-Epbx (Esrd) 4,000 Unit/Ml Vial SC 7,500 unit Q7D CINDY Administration Famotidine 20 mg 03/08/20 09:00 03/09/20 08:44 Famotidine 20 Mg Tab PO 20 mg DAILY CINDY Administration Folic Acid 1 mg 03/07/20 09:00 03/09/20 08:44 Folic Acid 1 Mg Tab PO 1 mg DAILY CINDY Administration Guaifenesin 600 mg 03/07/20 21:00 03/09/20 08:44 Guaifenesin Er 600 Mg Tab PO 600 mg Q12HR CINDY Administration Guaifenesin/Dextromethorphan 15 ml 03/06/20 20:11 03/06/20 22:56 Guaifenesin Dm 100-10/5 Ml Udcup PO 15 ml Q4H PRN Administration Cough Heparin Sodium (Porcine) 500 units 03/08/20 21:00 03/09/20 08:40 Heparin 500 Units/5 Ml Flush Syringe IVF 500 unit Q12HR CINDY Administration Insulin Glargine 50 units/ 0.5 mls @ 0 mls/hr 03/06/20 21:00 03/08/20 21:20 Miscellaneous Medication SC 0.5 mls HS CINDY Administration Insulin Human Lispro 0 units 03/06/20 20:33 03/08/20 18:27 Humalog 300 Units/3 Ml Vial SC 2 unit .MODERATE SLIDING SC PRN Administration Moderate Correctional Scale Labetalol HCl 20 mg 03/07/20 15:35 03/08/20 16:07 Labetalol Hcl 100 Mg/20 Ml Vial SLOW IVP 20 mg Q4H PRN Administration SBP>160 or DBP>90 Metoprolol Tartrate 50 mg 03/06/20 21:00 03/09/20 08:44 Metoprolol Tartrate 50 Mg Tab PO 50 mg BID CINDY Administration Ondansetron HCl 4 mg 03/06/20 20:11 03/09/20 02:47 Ondansetron Pf 4 Mg/2 Ml Vial IVP 4 mg Q6H PRN Administration Nausea/Vomiting Rosuvastatin Calcium 40 mg 03/06/20 21:00 03/08/20 21:20 Rosuvastatin 20 Mg Tab PO 40 mg QPM CINDY Administration Sodium Chloride 10 ml 03/06/20 21:00 03/09/20 08:44 Flush - Normal Saline 10 Ml Syringe IVF 10 ml Q12HR CINDY Administration Tuberculin PPD 0.1 ml 03/07/20 08:30 03/07/20 11:44 Tuberculin Ppd 0.1 Ml Vial I-DERMAL 03/10/20 08:31 0.1 ml ONE CINDY Administration Zinc Sulfate 220 mg 03/08/20 09:00 03/09/20 08:44 Zinc Sulfate 220 Mg Cap PO 220 mg DAILY CINDY Administration - Exam General Appearance: NAD, awake alert Eye: PERRL ENT: normocephalic atraumatic Neck: supple Heart: RRR Respiratory: CTAB, normal chest expansion Gastrointestinal: soft, normal bowel sounds Neurological: no focal deficits Psychiatric: A&O x 3 Hosp A/P - Plan COVID-19 pneumonia --Appreciate ID input. She is in the first week of illness. Both antibiotics and Decadron have been discontinued. She does not require oxygen supplementation at this time. Will follow the clinical course and take chest x- ray as needed. -We will follow on inflammatory markers. --not a candidate for Remdesevir d/t renal function SAM/CKD stage IV End-stage renal disease on hemodialysis started yesterday. Via femoral cath. Metabolic acidosis --She is still on sodium bicarb gtt -Will DC as she started to have dialysis and bicarb level seems to be improving and today at 20 Diabetes type 2 with hypoglycemia --Her A1c is 11.4 Lantus 50 units and sliding scale for now. - Hypertension --cont Metoprolol Dyslipidemia --cont statin Anemia of kidney disease -She is on Retacrit DVT ppx: Lovenox GI ppx: Pepcid Code Status: Full PPD placed - that has to be read. AV fistula placement evaluation in progress [-Ultrasound vein mapping.] Needs outpatient dialysis chair to be arranged.
--- NOTE | 2020-03-09 13:49 | OP ---
DATE OF PROCEDURE: 03/07/2020 PREOPERATIVE DIAGNOSES: COVID pneumonia, acute renal failure, chronic kidney disease, stroke, PAD, right femoral-popliteal bypass in the past. POSTOPERATIVE DIAGNOSES: COVID pneumonia, acute renal failure, chronic kidney disease, stroke, PAD, right femoral-popliteal bypass in the past. PROCEDURE PERFORMED: Right femoral vein Trialysis catheter. ANESTHESIA: 1% Xylocaine. DESCRIPTION OF PROCEDURE: With the patient at bedside, right groin was prepared with ChloraPrep and draped in routine fashion. 1% Xylocaine was infiltrated in the skin and subcutaneous tissue. Seldinger technique used to place a right femoral vein Trialysis catheter, removed the J-wire, secured it with 3-0 nylon suture. Each port aspirated with blood, flushed with heparinized saline solution. The patient tolerated the procedure well. Job ID: [id number]
[2020-03-09] MEDS: Labetalol HCl 100 MG/20 ML VIAL SLOW IVP PRN (16:57)
[2020-03-09] MEDS: Rosuvastatin 20 MG TAB PO SCH (19:32)
[2020-03-09] MEDS: Insulin Glargine 50 UNITS in Pre-Filled Syringe 1 EACH SC SCH (19:34)
[2020-03-10] MEDS: Labetalol HCl 100 MG/20 ML VIAL SLOW IVP PRN ×4 (00:05→22:17)
[2020-03-10 05:27] LABS: #Basophils 0.1 thou/uL (0.0-0.2); #Monocytes 0.7 thou/uL (0.11-0.59); #Neutrophils 3.9 thou/uL (1.40-6.50); %Basophils 2.4 % (0.0-1.0); %Eosinophils 0.3 % (0.0-10.0); %Lymphocytes 17.2 % (21.0-51.0); %Monocytes 12.5 % (0.0-10.0); %Neutrophils 67.7 % (42.0-75.0); Hemoglobin 9.3 g/dL (12.0-16.0); Mean Corpuscular HGB CONC 32.9 g/dL (32.0-36.0); Mean Corpuscular Hemoglobin 31.5 pg (27.0-31.0); Mean Corpuscular Volume 95.8 fL (78.0-98.0); Mean Platelet Volume 8.2 fL (7.4-10.4); Platelet Count 164 thou/uL (130-400); RBC Distribution Width 11.6 % (11.5-14.5); Red Blood Cell (RBC) Count 2.97 mill/uL (4.20-5.40); White Blood Cell (WBC) Count 5.7 thou/uL (4.8-10.8)
[2020-03-10 05:51] LABS: Anion Gap 12 mmol/L (10-20); BUN (Urea Nitrogen) 23 mg/dL (9.8-20.1); CRP (Inflammatory) 3.97 mg/dL (= or < 0.5); Calc. Creatinine Clearance 16 mL/min (70-130); Calcium 6.7 mg/dL (7.8-10.44); Carbon Dioxide 27 mmol/L (22-29); Chloride 101 mmol/L (98-107); Estimated GFR-MDRD 9; Glucose 84 mg/dL (70-105); Potassium 3.3 mmol/L (3.5-5.1); Sodium 137 mmol/L (136-145)
[2020-03-10] MEDS: Enoxaparin Sodium 30 MG/0.3 ML SYRINGE SC SCH (08:29)
[2020-03-10] MEDS: Famotidine 20 MG TAB PO SCH (08:30)
[2020-03-10] MEDS: Folic Acid 1 MG TAB PO SCH (08:30)
[2020-03-10] MEDS: Ascorbic Acid 500 mg Chewable Tablet PO SCH (08:30)
[2020-03-10] MEDS: Aspirin 81 mg Enteric Coated Tablet PO SCH (08:30)
[2020-03-10] MEDS: Zinc Sulfate 220 MG CAP PO SCH (08:30)
[2020-03-10] MEDS: Metoprolol Tartrate 50 MG TAB PO SCH ×2 (08:30→22:00)
[2020-03-10] MEDS: guaiFENesin ER 600 MG TAB PO SCH ×2 (08:30→21:59)
--- NOTE | 2020-03-10 09:03 | PRG ---
DATE OF SERVICE: 03/10/2020 SERVICE: Renal Medicine. SUBJECTIVE: Ms. Andrews is a 59-year-old black female, who was admitted for COVID pneumonia. We are following her up for her chronic renal failure. She has been noted to have progressive azotemia, for that reason, has been initiated on dialysis. She is tolerating dialysis treatment. She voices no new complaints today. OBJECTIVE: VITAL SIGNS: Blood pressure 171/76, heart rate 92, respiratory rate 18, temperature 98.1, and O2 saturation 100%. GENERAL: The patient is awake, alert, comfortable, not in overt distress. SKIN: Adequate turgor. HEENT: She has slightly pale conjunctivae. Anicteric sclerae. No neck mass. No carotid bruits. No JVD. CHEST: No deformities. LUNGS: Decreased breath sounds. HEART: Normal sinus rhythm. No murmur. No gallops. No rubs. ABDOMEN: Globular, soft. Nontender. No masses. EXTREMITIES: No edema. No deformities. MEDICATIONS: Of March 10, 2020, were reviewed. LABORATORY DATA: Laboratories of March 10, 2020: White count 5.7, hemoglobin 9.2, hematocrit 28.4. Sodium 137, potassium 3.3, chloride 101, carbon dioxide 27, BUN 23, creatinine 4.77, calcium 6.7. C-reactive protein is 3.97. ASSESSMENT AND PLAN: 1. Chronic renal failure - continue supportive hemodialysis. The patient is scheduled for hemodialysis tomorrow. Fluid removal only as tolerated. 2. Anemia. Currently on Epogen regimen. 3. Mild hypocalcemia. We will recheck her PTH and phosphorus in a.m. 4. COVID-19 pneumonia. Continuing supportive care. Job ID: [id number]
[2020-03-10] MEDS ORDERED: hydrALAZINE 20 MG/ML VIAL SLOW IVP PRN (09:13)
[2020-03-10] MEDS ORDERED: Metoprolol Tartrate 5 MG/5 ML VIAL IVP PRN (09:13)
--- NOTE | 2020-03-10 12:49 | PDOC.HOSPP ---
- Subjective Encounter Date: 03/10/20 Encounter Time: 10:00 Subjective: Patient is resting well. Her PPD will be read on around 11 AM today he is scheduled for dialysis tomorrow. - Objective Vital Signs & Weight: Vital Signs (12 hours) Temp Pulse Resp BP Pulse Ox 03/10/20 12:12 98.4 F 93 16 181/84 H 98 03/10/20 08:30 97.7 F 99 18 140/74 95 03/10/20 05:50 98.1 F 92 18 171/76 H 100 Weight Weight 180 lb I&O: 03/09/20 03/10/20 03/11/20 06:59 06:59 06:59 Intake Total 720 1680 Balance 720 1680 Result Diagrams: 03/10/20 05:09 03/10/20 05:09 Additional Labs: Accuchecks 03/10/20 03/10/20 03/10/20 12:12 05:27 00:01 POC Glucose 79 79 129 H 03/09/20 03/09/20 03/07/20 19:41 16:17 10:22 POC Glucose 79 63 L 59 L* Hospitalist ROS - Medication Medications: Active Medications Generic Name Dose Route Start Last Admin Trade Name Freq PRN Reason Stop Dose Admin Ascorbic Acid 1,000 mg 03/08/20 09:00 03/10/20 08:30 Ascorbic Acid 500 Mg Chewable Tablet PO 1,000 mg DAILY CINDY Administration Aspirin 81 mg 03/07/20 09:00 03/10/20 08:30 Aspirin 81 Mg Enteric Coated Tablet PO 81 mg DAILY CINDY Administration Dextrose/Water 25 gm 03/06/20 20:33 03/09/20 23:06 Dextrose 50% Abboject 50 Ml Syringe SLOW IVP 25 gm PRN PRN Administration Hypoglycemia Diltiazem HCl 180 mg 03/09/20 09:00 03/10/20 08:30 Diltiazem Hcl Cd 180 Mg Capsule PO 180 mg DAILY CINDY Administration Enoxaparin Sodium 30 mg 03/07/20 09:00 03/10/20 08:29 Enoxaparin Sodium 30 Mg/0.3 Ml Syringe SC 30 mg 0900 CINDY Administration Epoetin Jose-epbx 7,500 unit 03/07/20 12:00 03/07/20 20:03 Epoetin Jose-Epbx (Esrd) 4,000 Unit/Ml Vial SC 7,500 unit Q7D CINDY Administration Famotidine 20 mg 03/08/20 09:00 03/10/20 08:30 Famotidine 20 Mg Tab PO 20 mg DAILY CINDY Administration Folic Acid 1 mg 03/07/20 09:00 03/10/20 08:30 Folic Acid 1 Mg Tab PO 1 mg DAILY CINDY Administration Guaifenesin 600 mg 03/07/20 21:00 03/10/20 08:30 Guaifenesin Er 600 Mg Tab PO 600 mg Q12HR CINDY Administration Guaifenesin/Dextromethorphan 15 ml 03/06/20 20:11 03/06/20 22:56 Guaifenesin Dm 100-10/5 Ml Udcup PO 15 ml Q4H PRN Administration Cough Heparin Sodium (Porcine) 500 units 03/08/20 21:00 03/10/20 08:29 Heparin 500 Units/5 Ml Flush Syringe IVF 500 unit Q12HR CINDY Administration Heparin Sodium (Porcine) 500 units 03/08/20 12:45 03/09/20 23:06 Heparin 500 Units/5 Ml Flush Syringe IVF 500 unit PRN PRN Administration Heparin Flush Insulin Glargine 50 units/ 0.5 mls @ 0 mls/hr 03/06/20 21:00 03/09/20 19:34 Miscellaneous Medication SC Not Given HS [facility] Insulin Human Lispro 0 units 03/06/20 20:33 03/08/20 18:27 Humalog 300 Units/3 Ml Vial SC 2 unit .MODERATE SLIDING SC PRN Administration Moderate Correctional Scale Labetalol HCl 20 mg 03/07/20 15:35 03/10/20 06:29 Labetalol Hcl 100 Mg/20 Ml Vial SLOW IVP 20 mg Q4H PRN Administration SBP>160 or DBP>90 Metoprolol Tartrate 50 mg 03/06/20 21:00 03/10/20 08:30 Metoprolol Tartrate 50 Mg Tab PO 50 mg BID CINDY Administration Ondansetron HCl 4 mg 03/06/20 20:11 03/09/20 02:47 Ondansetron Pf 4 Mg/2 Ml Vial IVP 4 mg Q6H PRN Administration Nausea/Vomiting Rosuvastatin Calcium 40 mg 03/06/20 21:00 03/09/20 19:32 Rosuvastatin 20 Mg Tab PO 40 mg QPM CINDY Administration Sodium Chloride 10 ml 03/06/20 21:00 03/10/20 08:30 Flush - Normal Saline 10 Ml Syringe IVF 10 ml Q12HR CINDY Administration Zinc Sulfate 220 mg 03/08/20 09:00 03/10/20 08:30 Zinc Sulfate 220 Mg Cap PO 220 mg DAILY CINDY Administration - Exam General Appearance: NAD, awake alert Eye: PERRL ENT: normocephalic atraumatic Neck: supple Gastrointestinal: soft, normal bowel sounds Neurological: no focal deficits Psychiatric: A&O x 3 Hosp A/P - Plan COVID-19 pneumonia --Appreciate ID input. She is in the first week of illness. Both antibiotics and Decadron have been discontinued. She does not require oxygen supplementation at this time. Will follow the clinical course and take chest x- ray as needed. -We will follow on inflammatory markers. --not a candidate for Remdesevir d/t renal function SAM/CKD stage IV End-stage renal disease on hemodialysis started yesterday. Via femoral cath. Metabolic acidosis --She is still on sodium bicarb gtt -Will DC as she started to have dialysis and bicarb level seems to be improving and today at 20 Diabetes type 2 with hypoglycemia --Her A1c is 11.4 Lantus 50 units and sliding scale for now. - Hypertension --cont Metoprolol Dyslipidemia --cont statin Anemia of kidney disease -She is on Retacrit DVT ppx: Lovenox GI ppx: Pepcid Code Status: Full PPD placed - that has to be read.----it will be done today AV fistula placement evaluation in progress [-Ultrasound vein mapping.] Needs outpatient dialysis chair to be arranged.
[2020-03-10] MEDS ORDERED: Electrolyte Replacement Protoc 1 EACH EACH FS SCH (21:15)
[2020-03-10] MEDS: Rosuvastatin 20 MG TAB PO SCH (21:59)
[2020-03-10] MEDS: Insulin Glargine 50 UNITS in Pre-Filled Syringe 1 EACH SC SCH (22:04)
[2020-03-11] MEDS: Labetalol HCl 100 MG/20 ML VIAL SLOW IVP PRN (02:05)
[2020-03-11 06:30] LABS: #Eosinphils 0.1 thou/uL (0.0-0.7); #Lymphocytes 1.1 thou/uL (1.20-3.40); #Monocytes 0.9 thou/uL (0.11-0.59); %Basophils 0.1 % (0.0-1.0); %Eosinophils 0.9 % (0.0-10.0); %Lymphocytes 18.6 % (21.0-51.0); %Neutrophils 66.3 % (42.0-75.0); Hemoglobin 8.6 g/dL (12.0-16.0); Mean Corpuscular HGB CONC 31.5 g/dL (32.0-36.0); Mean Corpuscular Hemoglobin 29.9 pg (27.0-31.0); Platelet Count 190 thou/uL (130-400); RBC Distribution Width 11.5 % (11.5-14.5); Red Blood Cell (RBC) Count 2.88 mill/uL (4.20-5.40)
[2020-03-11 06:53] LABS: Anion Gap 15 mmol/L (10-20); BUN (Urea Nitrogen) 24 mg/dL (9.8-20.1); Calc. Creatinine Clearance 13 mL/min (70-130); Calcium 6.8 mg/dL (7.8-10.44); Carbon Dioxide 26 mmol/L (22-29); Chloride 101 mmol/L (98-107); Estimated GFR-MDRD 7; Glucose 98 mg/dL (70-105); Magnesium 1.7 mg/dL (1.6-2.6); Phosphorus 4.2 mg/dL (2.3-4.7); Potassium 3.5 mmol/L (3.5-5.1); Sodium 138 mmol/L (136-145)
[2020-03-11] MEDS ORDERED: Heparin 10,000 UNITS/ 10 ML VIAL ONE (08:39)
[2020-03-11] MEDS: hydrALAZINE 25 MG TAB PO SCH ×4 (08:53→20:54)
[2020-03-11] MEDS: Enoxaparin Sodium 30 MG/0.3 ML SYRINGE SC SCH (08:53)
[2020-03-11] MEDS: guaiFENesin ER 600 MG TAB PO SCH ×2 (08:53→20:54)
[2020-03-11] MEDS: Aspirin 81 mg Enteric Coated Tablet PO SCH (08:53)
[2020-03-11] MEDS: Famotidine 20 MG TAB PO SCH (08:53)
[2020-03-11] MEDS: Ascorbic Acid 500 mg Chewable Tablet PO SCH (08:54)
[2020-03-11] MEDS: Folic Acid 1 MG TAB PO SCH (08:54)
[2020-03-11] MEDS: Zinc Sulfate 220 MG CAP PO SCH (08:54)
[2020-03-11] MEDS: Metoprolol Tartrate 50 MG TAB PO SCH ×2 (08:54→20:52)
[2020-03-11] MEDS ORDERED: Metoprolol Tartrate 50 MG TAB PO SCH ×2 (09:00→09:30)
--- NOTE | 2020-03-11 09:32 | PRG ---
DATE OF SERVICE: 03/11/2020 SUBJECTIVE: Ms. Andrews is a 59-year-old black female who was admitted for COVID-19 pneumonia. We are following up this patient for her chronic renal failure, which has worsened and she has been initiated on dialysis. I have rescheduled her for her regular dialysis today. Please note, she was also severely acidemic on admission, which has improved with dialysis. No new complaints today. No chest pain or shortness of breath. OBJECTIVE: VITAL SIGNS: Blood pressure is 175/86, heart rate 94, respiratory rate 11, O2 saturation 100% on room air, and temperature 98.2. GENERAL: The patient is awake, alert, comfortable, sitting, not in distress. SKIN: Adequate turgor. HEENT: She has a slightly pale conjunctivae. Anicteric sclerae. NECK: No neck mass. No carotid bruits. No JVD. CHEST: No deformities. LUNGS: Clear breath sounds. HEART: Normal sinus rhythm. No murmur. No gallops. No rubs. ABDOMEN: Globular, soft, and nontender. No masses. EXTREMITIES: No edema. No deformities. MEDICATIONS: Medications of March 11, 2020, were reviewed. LABORATORY DATA: Laboratories of March 11, 2020; white count 6, hemoglobin 8.6, sodium 138, potassium 3.5, chloride 101, carbon dioxide 26, BUN 24, creatinine 5.81, calcium 6.8, phosphorus 4.2, total bilirubin 1.7, and PTH is 491. ASSESSMENT AND PLAN: 1. Hypocalcemia/elevated PTH of 491. Start calcitriol 0.25 mcg tablet daily if not started. 2. Chronic renal failure/end-stage renal disease, continuing 3 times a week hemodialysis. Tolerating said treatment. Awaiting outpatient dialysis placement. 3. Hypertension, labile in nature. We will add minoxidil 5 mg tablet once a day. Continue other antihypertensive regimen. 4. Anemia, on weekly Epogen. Job ID: [id number]
[2020-03-11] MEDS: Minoxidil 2.5 MG TAB PO SCH (10:35)
--- NOTE | 2020-03-11 14:09 | PDOC.HOSPP ---
- Subjective Encounter Date: 03/11/20 Encounter Time: 10:20 Subjective: She is doing well -no headache shortness of breath.. Her blood pressure is quite elevated this morning. Her PPD test is negative it was read. - Objective Vital Signs & Weight: Vital Signs (12 hours) Temp Pulse Resp BP Pulse Ox 03/11/20 13:16 128/66 03/11/20 12:03 98.8 F 92 16 172/84 H 100 03/11/20 09:00 98.8 F 100 18 189/88 H 99 03/11/20 05:24 175/86 H 03/11/20 05:20 168/83 H 03/11/20 04:58 98.2 F 94 11 L 170/85 H 100 Weight Weight 193 lb 12.581 oz I&O: 03/10/20 03/11/20 03/12/20 06:59 06:59 06:59 Intake Total 1680 1455 Balance 1680 1455 Result Diagrams: 03/11/20 06:21 03/11/20 06:21 Additional Labs: Accuchecks 03/11/20 03/11/20 03/10/20 12:00 06:10 22:06 POC Glucose 119 H 93 99 03/10/20 17:20 POC Glucose 65 L Hospitalist ROS - Medication Medications: Active Medications Generic Name Dose Route Start Last Admin Trade Name Freq PRN Reason Stop Dose Admin Ascorbic Acid 1,000 mg 03/08/20 09:00 03/11/20 08:54 Ascorbic Acid 500 Mg Chewable Tablet PO 1,000 mg DAILY CINDY Administration Aspirin 81 mg 03/07/20 09:00 03/11/20 08:53 Aspirin 81 Mg Enteric Coated Tablet PO 81 mg DAILY CINDY Administration Dextrose/Water 25 gm 03/06/20 20:33 03/09/20 23:06 Dextrose 50% Abboject 50 Ml Syringe SLOW IVP 25 gm PRN PRN Administration Hypoglycemia Diltiazem HCl 180 mg 03/09/20 09:00 03/11/20 08:53 Diltiazem Hcl Cd 180 Mg Capsule PO 180 mg DAILY CINDY Administration Enoxaparin Sodium 30 mg 03/07/20 09:00 03/11/20 08:53 Enoxaparin Sodium 30 Mg/0.3 Ml Syringe SC 30 mg 0900 CINDY Administration Epoetin Jose-epbx 7,500 unit 03/07/20 12:00 03/07/20 20:03 Epoetin Jose-Epbx (Esrd) 4,000 Unit/Ml Vial SC 7,500 unit Q7D CINDY Administration Famotidine 20 mg 03/08/20 09:00 03/11/20 08:53 Famotidine 20 Mg Tab PO 20 mg DAILY CINDY Administration Folic Acid 1 mg 03/07/20 09:00 03/11/20 08:54 Folic Acid 1 Mg Tab PO 1 mg DAILY CINDY Administration Guaifenesin 600 mg 03/07/20 21:00 03/11/20 08:53 Guaifenesin Er 600 Mg Tab PO 600 mg Q12HR CINDY Administration Guaifenesin/Dextromethorphan 15 ml 03/06/20 20:11 03/06/20 22:56 Guaifenesin Dm 100-10/5 Ml Udcup PO 15 ml Q4H PRN Administration Cough Heparin Sodium (Porcine) 500 units 03/08/20 21:00 03/11/20 08:53 Heparin 500 Units/5 Ml Flush Syringe IVF 500 unit Q12HR CINDY Administration Heparin Sodium (Porcine) 500 units 03/08/20 12:45 03/11/20 04:54 Heparin 500 Units/5 Ml Flush Syringe IVF 500 unit PRN PRN Administration Heparin Flush Hydralazine HCl 25 mg 03/11/20 09:00 03/11/20 08:53 Hydralazine 25 Mg Tab PO 25 mg TID CINDY Administration Insulin Glargine 50 units/ 0.5 mls @ 0 mls/hr 03/06/20 21:00 03/10/20 22:04 Miscellaneous Medication SC Not Given HS [facility] Insulin Human Lispro 0 units 03/06/20 20:33 03/08/20 18:27 Humalog 300 Units/3 Ml Vial SC 2 unit .MODERATE SLIDING SC PRN Administration Moderate Correctional Scale Metoprolol Tartrate 5 mg 03/10/20 09:13 03/11/20 05:16 Metoprolol Tartrate 5 Mg/5 Ml Vial IVP 03/13/20 09:14 5 mg Q4H PRN Administration Blood Pressure Minoxidil 5 mg 03/11/20 09:00 03/11/20 10:35 Minoxidil 2.5 Mg Tab PO 5 mg DAILY CINDY Administration Ondansetron HCl 4 mg 03/06/20 20:11 03/09/20 02:47 Ondansetron Pf 4 Mg/2 Ml Vial IVP 4 mg Q6H PRN Administration Nausea/Vomiting Rosuvastatin Calcium 40 mg 03/06/20 21:00 03/10/20 21:59 Rosuvastatin 20 Mg Tab PO 40 mg QPM CINDY Administration Sodium Chloride 10 ml 03/06/20 21:00 03/11/20 08:53 Flush - Normal Saline 10 Ml Syringe IVF 10 ml Q12HR CINDY Administration Zinc Sulfate 220 mg 03/08/20 09:00 03/11/20 08:54 Zinc Sulfate 220 Mg Cap PO 220 mg DAILY CINDY Administration - Exam General Appearance: NAD, awake alert Eye: PERRL ENT: normocephalic atraumatic Neck: supple Heart: RRR, normal peripheral pulses Respiratory: CTAB, normal chest expansion Neurological: no focal deficits Psychiatric: A&O x 3 Hosp A/P - Plan COVID-19 pneumonia --Appreciate ID input. She is in the first week of illness. Both antibiotics and Decadron have been discontinued. She does not require oxygen supplementation at this time. Will follow the clinical course and take chest x- ray as needed. -We will follow on inflammatory markers. --not a candidate for Remdesevir d/t renal function SAM/CKD stage IV End-stage renal disease on hemodialysis started yesterday. Via femoral cath. Metabolic acidosis --She is still on sodium bicarb gtt -Will DC as she started to have dialysis and bicarb level seems to be improving and today at 20 Diabetes type 2 with hypoglycemia --Her A1c is 11.4 Lantus 50 units and sliding scale for now. - Hypertension --cont Metoprolol Dyslipidemia --cont statin Anemia of kidney disease -She is on Retacrit DVT ppx: Lovenox GI ppx: Pepcid Code Status: Full PPD placed - that has to be read.----Negative. AV fistula placement evaluation in progress [-Ultrasound vein mapping.] Needs outpatient dialysis chair to be arranged.
[2020-03-11] MEDS: Rosuvastatin 20 MG TAB PO SCH (20:53)
[2020-03-12] MEDS: Ondansetron ODT 4 MG TAB PO PRN ×2 (00:11→16:36)
[2020-03-12] MEDS: guaiFENesin ER 600 MG TAB PO SCH ×2 (09:14→20:24)
[2020-03-12] MEDS: Metoprolol Tartrate 50 MG TAB PO SCH ×3 (09:14→20:59)
[2020-03-12] MEDS: Zinc Sulfate 220 MG CAP PO SCH (09:14)
[2020-03-12] MEDS: Famotidine 20 MG TAB PO SCH (09:14)
[2020-03-12] MEDS: Minoxidil 2.5 MG TAB PO SCH (09:14)
[2020-03-12] MEDS: Folic Acid 1 MG TAB PO SCH (09:14)
[2020-03-12] MEDS: hydrALAZINE 25 MG TAB PO SCH ×5 (09:14→21:02)
[2020-03-12] MEDS: Ascorbic Acid 500 mg Chewable Tablet PO SCH (09:14)
[2020-03-12] MEDS: Aspirin 81 mg Enteric Coated Tablet PO SCH (09:15)
[2020-03-12] MEDS: Enoxaparin Sodium 30 MG/0.3 ML SYRINGE SC SCH (09:31)
[2020-03-12] MEDS: Ondansetron PF 4 MG/2 ML Vial IVP PRN (09:31)
--- NOTE | 2020-03-12 09:44 | PRG ---
DATE OF SERVICE: 03/12/2020 SUBJECTIVE: Ms. Andrews is a 59-year-old black female, admitted for COVID-19 pneumonia. She has also had progressive azotemia and worsening renal dysfunction. For that reason, she has been initiated on dialysis. I feel that she has reached ESRD. We are awaiting outpatient placement. She voices no new complaints today and no chest pain or shortness of breath. OBJECTIVE: VITAL SIGNS: Blood pressure is 115/68, heart rate 92, respiratory rate 18, O2 saturation 98% on room air. GENERAL: The patient is awake, alert, comfortable, not in overt distress. SKIN: Adequate turgor. HEENT: Slightly pale conjunctivae. Anicteric sclerae. NECK: No neck mass. No carotid bruits. No JVD. CHEST: No deformities. LUNGS: Decreased breath sounds. HEART: Normal sinus rhythm. No murmur. No gallops. No rubs. ABDOMEN: Globular, soft, and nontender. No masses. EXTREMITIES: No edema. No deformities. MEDICATIONS: Medications of 03/12/2020 were reviewed. LABORATORY DATA: On 03/11/2020: White count 6 and hemoglobin 8.6. Sodium 138, potassium 3.5, chloride 101, carbon dioxide 26, BUN 24, creatinine 5.81, and calcium 6.8. Phosphorus 4.2. PTH 491. ASSESSMENT AND PLAN: 1. Chronic renal failure/end-stage renal disease, continuing 3 times a week hemodialysis. Fluid removal only as tolerated. 2. Anemia. Continuing Epogen regimen. 3. Secondary hyperparathyroidism. Calcitriol will be started for this patient. 4. Awaiting surgical consult for placement of a tunneled dialysis catheter and an arteriovenous fistula. Job ID: [id number]
[2020-03-12] MEDS ORDERED: Metoclopramide HCl 10 MG TAB PO PRN (15:10)
--- NOTE | 2020-03-12 16:53 | PDOC.HOSPP ---
- Subjective Encounter Date: 03/12/20 Encounter Time: 16:40 Subjective: Patient is quite nauseated and I saw her in the room. She does not look good. Reglan started. Discussed with RN. It appears patient had a positive Covid on admission date on . - Objective Vital Signs & Weight: Vital Signs (12 hours) Temp Pulse Resp BP Pulse Ox 03/12/20 13:29 98 03/12/20 12:45 97.5 F L 89 18 116/53 L 98 03/12/20 09:25 98.5 F 100 16 121/61 98 03/12/20 09:14 92 Weight Weight 193 lb 12.581 oz I&O: 03/11/20 03/12/20 03/13/20 06:59 06:59 06:59 Intake Total 1455 1080 Balance 1455 1080 Result Diagrams: 03/11/20 06:21 03/11/20 06:21 Additional Labs: Accuchecks 03/12/20 03/12/20 03/11/20 16:26 13:56 21:25 POC Glucose 172 H 174 H 120 H 03/09/20 05:37 POC Glucose 27 L* Hospitalist ROS - Medication Medications: Active Medications Generic Name Dose Route Start Last Admin Trade Name Freq PRN Reason Stop Dose Admin Ascorbic Acid 1,000 mg 03/08/20 09:00 03/12/20 09:14 Ascorbic Acid 500 Mg Chewable Tablet PO 1,000 mg DAILY CINDY Administration Aspirin 81 mg 03/07/20 09:00 03/12/20 09:15 Aspirin 81 Mg Enteric Coated Tablet PO 81 mg DAILY CINDY Administration Dextrose/Water 25 gm 03/06/20 20:33 03/09/20 23:06 Dextrose 50% Abboject 50 Ml Syringe SLOW IVP 25 gm PRN PRN Administration Hypoglycemia Diltiazem HCl 180 mg 03/09/20 09:00 03/12/20 09:14 Diltiazem Hcl Cd 180 Mg Capsule PO 180 mg DAILY CINDY Administration Enoxaparin Sodium 30 mg 03/07/20 09:00 03/12/20 09:31 Enoxaparin Sodium 30 Mg/0.3 Ml Syringe SC 30 mg 0900 CINDY Administration Epoetin Jose-epbx 7,500 unit 03/07/20 12:00 03/07/20 20:03 Epoetin Jose-Epbx (Esrd) 4,000 Unit/Ml Vial SC 7,500 unit Q7D CINDY Administration Famotidine 20 mg 03/08/20 09:00 03/12/20 09:14 Famotidine 20 Mg Tab PO 20 mg DAILY CINDY Administration Folic Acid 1 mg 03/07/20 09:00 03/12/20 09:14 Folic Acid 1 Mg Tab PO 1 mg DAILY CINDY Administration Guaifenesin 600 mg 03/07/20 21:00 03/12/20 09:14 Guaifenesin Er 600 Mg Tab PO 600 mg Q12HR CINDY Administration Guaifenesin/Dextromethorphan 15 ml 03/06/20 20:11 03/06/20 22:56 Guaifenesin Dm 100-10/5 Ml Udcup PO 15 ml Q4H PRN Administration Cough Heparin Sodium (Porcine) 500 units 03/08/20 21:00 03/12/20 09:13 Heparin 500 Units/5 Ml Flush Syringe IVF 500 unit Q12HR CINDY Administration Heparin Sodium (Porcine) 500 units 03/08/20 12:45 03/11/20 04:54 Heparin 500 Units/5 Ml Flush Syringe IVF 500 unit PRN PRN Administration Heparin Flush Hydralazine HCl 25 mg 03/11/20 09:00 03/12/20 09:14 Hydralazine 25 Mg Tab PO 25 mg TID CINDY Administration Insulin Human Lispro 0 units 03/06/20 20:33 03/08/20 18:27 Humalog 300 Units/3 Ml Vial SC 2 unit .MODERATE SLIDING SC PRN Administration Moderate Correctional Scale Metoprolol Tartrate 5 mg 03/10/20 09:13 03/11/20 05:16 Metoprolol Tartrate 5 Mg/5 Ml Vial IVP 03/13/20 09:14 5 mg Q4H PRN Administration Blood Pressure Metoprolol Tartrate 75 mg 03/11/20 21:00 03/12/20 09:14 Metoprolol Tartrate 50 Mg Tab PO 75 mg BID CINDY Administration Minoxidil 5 mg 03/11/20 09:00 03/12/20 09:14 Minoxidil 2.5 Mg Tab PO 5 mg DAILY CINDY Administration Ondansetron HCl 4 mg 03/06/20 20:11 03/12/20 16:36 Ondansetron Odt 4 Mg Tab PO 4 mg Q6H PRN Administration Nausea/Vomiting Ondansetron HCl 4 mg 03/06/20 20:11 03/12/20 09:31 Ondansetron Pf 4 Mg/2 Ml Vial IVP 4 mg Q6H PRN Administration Nausea/Vomiting Rosuvastatin Calcium 40 mg 03/06/20 21:00 03/11/20 20:53 Rosuvastatin 20 Mg Tab PO 40 mg QPM CINDY Administration Sodium Chloride 10 ml 03/06/20 21:00 03/12/20 09:15 Flush - Normal Saline 10 Ml Syringe IVF 10 ml Q12HR CINDY Administration Zinc Sulfate 220 mg 03/08/20 09:00 03/12/20 09:14 Zinc Sulfate 220 Mg Cap PO 220 mg DAILY CINDY Administration - Exam General Appearance: NAD, awake alert Eye: PERRL ENT: normocephalic atraumatic Neck: supple Heart: RRR, normal peripheral pulses Respiratory: CTAB, normal chest expansion Gastrointestinal: soft, normal bowel sounds Neurological: no focal deficits Psychiatric: A&O x 3 Hosp A/P - Plan COVID-19 pneumonia --Appreciate ID input. She is in the first week of illness. Both antibiotics and Decadron have been discontinued. She does not require oxygen supplementation at this time. Will follow the clinical course and take chest x- ray as needed. -We will follow on inflammatory markers. --not a candidate for Remdesevir d/t renal function SAM/CKD stage IV End-stage renal disease on hemodialysis started yesterday. Via femoral cath. Metabolic acidosis --She is still on sodium bicarb gtt -Will DC as she started to have dialysis and bicarb level seems to be improving and today at 20 Diabetes type 2 with hypoglycemia --Her A1c is 11.4 Lantus 50 units and sliding scale for now. - Hypertension --cont Metoprolol Dyslipidemia --cont statin Anemia of kidney disease -She is on Retacrit DVT ppx: Lovenox GI ppx: Pepcid Code Status: Full PPD placed - that has to be read.----Negative. AV fistula placement evaluation in progress [-Ultrasound vein mapping.] Needs outpatient dialysis chair to be arranged. 18 Patient's Covid was tested on . She is during the first week of infection; 6 days since then. Yes it is reasonable to wait until the to remove her from isolation She is satting 98% in the room air. It appears from Covid perspective she is improving pulmonary freitas. -However she has uremic symptoms and treated symptomatically with antiemetic IV so far. -Plan for long-term dialysis catheter placement/AV fistula.
[2020-03-12] MEDS ORDERED: Metoclopramide HCl 10 MG/2 ML VIAL IVP PRN (19:28)
[2020-03-12] MEDS: Rosuvastatin 20 MG TAB PO SCH (20:21)
[2020-03-13 05:00] LABS: Anion Gap 24 mmol/L (10-20); BUN (Urea Nitrogen) 22 mg/dL (9.8-20.1); Calc. Creatinine Clearance 15 mL/min (70-130); Calcium 7.4 mg/dL (7.8-10.44); Carbon Dioxide 17 mmol/L (22-29); Chloride 98 mmol/L (98-107); Estimated GFR-MDRD 8; Glucose 203 mg/dL (70-105); Potassium 4.2 mmol/L (3.5-5.1); Sodium 135 mmol/L (136-145)
[2020-03-13] MEDS ORDERED: Heparin 10,000 UNITS/ 10 ML VIAL ONE (08:43)
[2020-03-13] MEDS: Ascorbic Acid 500 mg Chewable Tablet PO SCH (08:46)
[2020-03-13] MEDS: Aspirin 81 mg Enteric Coated Tablet PO SCH (08:46)
[2020-03-13] MEDS: guaiFENesin ER 600 MG TAB PO SCH ×2 (08:47→20:38)
[2020-03-13] MEDS: Calcitriol 0.25 MCG CAP PO SCH (08:47)
[2020-03-13] MEDS: Famotidine 20 MG TAB PO SCH (08:47)
[2020-03-13] MEDS: Zinc Sulfate 220 MG CAP PO SCH (08:48)
[2020-03-13] MEDS: Folic Acid 1 MG TAB PO SCH (08:48)
[2020-03-13] MEDS: hydrALAZINE 25 MG TAB PO SCH ×3 (08:49→20:39)
[2020-03-13] MEDS: Enoxaparin Sodium 30 MG/0.3 ML SYRINGE SC SCH (08:50)
[2020-03-13] MEDS: Ondansetron ODT 4 MG TAB PO PRN (08:52)
[2020-03-13] MEDS: Metoprolol Tartrate 50 MG TAB PO SCH ×3 (09:02→20:39)
[2020-03-13] MEDS: Minoxidil 2.5 MG TAB PO SCH (09:03)
[2020-03-13] MEDS ORDERED: Metoprolol Tartrate 50 MG TAB PO SCH (09:15)
--- NOTE | 2020-03-13 09:58 | PRG ---
DATE OF SERVICE: 03/13/2020 SUBJECTIVE: Ms. Andrews is a 59-year-old black female, who was admitted for COVID-19 pneumonia. Due to her progressive azotemia, she has been initiated on dialysis. She has underlying diabetic nephropathy. This morning, voices no new complaints. Surgical consult has been done with Dr. Ramirez. Due to her COVID-19 status, tunneled catheter and AV fistula will not be placed until next week. OBJECTIVE: VITAL SIGNS: Blood pressure 105/56, heart rate 94, respiratory rate 16, temperature 97.8, O2 saturation 100%. GENERAL: The patient is awake, comfortable, not in distress. SKIN: Adequate turgor. HEENT: Slightly pale conjunctivae. Anicteric sclerae. No neck mass. No carotid bruits. No JVD. CHEST: No deformities. LUNGS: Decreased breath sounds. HEART: Normal sinus rhythm. No murmur. No gallops. No rubs. ABDOMEN: Globular, soft, nontender. No masses. EXTREMITIES: No edema. No deformities. MEDICATIONS: Medications of March 13, 2020, reviewed. LABORATORY DATA: Laboratories of March 11, 2020; white count 6, hemoglobin 8.6. On March 13, 2020; sodium 135, potassium 4.2, chloride 98, carbon dioxide 17, BUN 22, creatinine 5.61, glucose 203, calcium 7.4. ASSESSMENT AND PLAN: 1. Chronic renal failure/ESRD, continuing 3 times a week hemodialysis. Fluid removal only as tolerated by the patient. 2. Anemia, continuing weekly Epogen. 3. Mild hypocalcemia/elevated PTH. The patient has been initiated on calcitriol 0.25 mcg tablet daily. Recheck CBC and basic metabolic profile in a.m. Job ID: [id number]
--- NOTE | 2020-03-13 12:46 | PDOC.HOSPP ---
- Subjective Encounter Date: 03/13/20 Encounter Time: 09:30 Subjective: Patient still looks lethargic and the nauseated. Her blood pressure is slightly on the low side. I talked to yesterday, possible AV fistula placement next week. - Objective Vital Signs & Weight: Vital Signs (12 hours) Temp Pulse Resp BP BP Pulse Ox 03/13/20 12:35 97.7 F 92 18 105/57 L 100 03/13/20 08:49 94 105/56 L 03/13/20 08:45 97.8 F 94 16 105/56 L 100 03/13/20 08:38 100 03/13/20 08:25 100 03/13/20 04:45 97.9 F 90 14 98/55 L 100 Weight Weight 191 lb 12.8 oz I&O: 03/12/20 03/13/20 03/14/20 06:59 06:59 06:59 Intake Total 1080 960 Output Total 0 Balance 1080 960 Result Diagrams: 03/11/20 06:21 03/13/20 04:21 Additional Labs: Accuchecks 03/13/20 03/12/20 03/12/20 11:08 20:40 16:26 POC Glucose 191 H 191 H 172 H 03/12/20 03/12/20 03/09/20 13:56 05:24 05:37 POC Glucose 174 H 157 H 27 L* Hospitalist ROS - Medication Medications: Active Medications Generic Name Dose Route Start Last Admin Trade Name Freq PRN Reason Stop Dose Admin Ascorbic Acid 1,000 mg 03/08/20 09:00 03/13/20 08:46 Ascorbic Acid 500 Mg Chewable Tablet PO 1,000 mg DAILY CINDY Administration Aspirin 81 mg 03/07/20 09:00 03/13/20 08:46 Aspirin 81 Mg Enteric Coated Tablet PO 81 mg DAILY CINDY Administration Calcitriol 0.25 mcg 03/13/20 09:00 03/13/20 08:47 Calcitriol 0.25 Mcg Cap PO 0.25 mcg DAILY CINDY Administration Dextrose/Water 25 gm 03/06/20 20:33 03/09/20 23:06 Dextrose 50% Abboject 50 Ml Syringe SLOW IVP 25 gm PRN PRN Administration Hypoglycemia Diltiazem HCl 180 mg 03/09/20 09:00 03/13/20 09:01 Diltiazem Hcl Cd 180 Mg Capsule PO 180 mg DAILY [facility] Administration Enoxaparin Sodium 30 mg 03/07/20 09:00 03/13/20 08:50 Enoxaparin Sodium 30 Mg/0.3 Ml Syringe SC 30 mg 0900 [facility] Administration Epoetin Jose-epbx 7,500 unit 03/07/20 12:00 03/07/20 20:03 Epoetin Jose-Epbx (Esrd) 4,000 Unit/Ml Vial SC 7,500 unit Q7D [facility] Administration Famotidine 20 mg 03/08/20 09:00 03/13/20 08:47 Famotidine 20 Mg Tab PO 20 mg DAILY [facility] Administration Folic Acid 1 mg 03/07/20 09:00 03/13/20 08:48 Folic Acid 1 Mg Tab PO 1 mg DAILY [facility] Administration Guaifenesin 600 mg 03/07/20 21:00 03/13/20 08:47 Guaifenesin Er 600 Mg Tab PO 600 mg Q12HR [facility] Administration Guaifenesin/Dextromethorphan 15 ml 03/06/20 20:11 03/06/20 22:56 Guaifenesin Dm 100-10/5 Ml Udcup PO 15 ml Q4H PRN Administration Cough Heparin Sodium (Porcine) 500 units 03/08/20 21:00 03/13/20 08:57 Heparin 500 Units/5 Ml Flush Syringe IVF 500 unit Q12HR [facility] Administration Heparin Sodium (Porcine) 500 units 03/08/20 12:45 03/11/20 04:54 Heparin 500 Units/5 Ml Flush Syringe IVF 500 unit PRN PRN Administration Heparin Flush Hydralazine HCl 25 mg 03/11/20 09:00 03/13/20 08:49 Hydralazine 25 Mg Tab PO Not Given TID [facility] Insulin Human Lispro 0 units 03/06/20 20:33 03/08/20 18:27 Humalog 300 Units/3 Ml Vial SC 2 unit .MODERATE SLIDING SC PRN Administration Moderate Correctional Scale Minoxidil 5 mg 03/11/20 09:00 03/13/20 09:03 Minoxidil 2.5 Mg Tab PO Not Given DAILY [facility] Ondansetron HCl 4 mg 03/06/20 20:11 03/13/20 08:52 Ondansetron Odt 4 Mg Tab PO 4 mg Q6H PRN Administration Nausea/Vomiting Ondansetron HCl 4 mg 03/06/20 20:11 03/12/20 09:31 Ondansetron Pf 4 Mg/2 Ml Vial IVP 4 mg Q6H PRN Administration Nausea/Vomiting Rosuvastatin Calcium 40 mg 03/06/20 21:00 03/12/20 20:21 Rosuvastatin 20 Mg Tab PO 40 mg QPM ICNDY Administration Sodium Chloride 10 ml 03/06/20 21:00 03/13/20 08:50 Flush - Normal Saline 10 Ml Syringe IVF 10 ml Q12HR CINDY Administration Zinc Sulfate 220 mg 03/08/20 09:00 03/13/20 08:48 Zinc Sulfate 220 Mg Cap PO 220 mg DAILY CINDY Administration - Exam General Appearance: NAD, awake alert Eye: PERRL ENT: normocephalic atraumatic Neck: supple Heart: RRR Respiratory: CTAB, normal chest expansion Gastrointestinal: soft, normal bowel sounds Neurological: no focal deficits Psychiatric: A&O x 3 Hosp A/P - Plan COVID-19 pneumonia --Appreciate ID input. She is in the first week of illness. Both antibiotics and Decadron have been discontinued. She does not require oxygen supplementation at this time. Will follow the clinical course and take chest x- ray as needed. -We will follow on inflammatory markers. --not a candidate for Remdesevir d/t renal function SAM/CKD stage IV End-stage renal disease on hemodialysis started yesterday. Via femoral cath. Metabolic acidosis --She is still on sodium bicarb gtt -Will DC as she started to have dialysis and bicarb level seems to be improving and today at 20 Diabetes type 2 with hypoglycemia --Her A1c is 11.4 Lantus 50 units and sliding scale for now. - Hypertension --cont Metoprolol Dyslipidemia --cont statin Anemia of kidney disease -She is on Retacrit DVT ppx: Lovenox GI ppx: Pepcid Code Status: Full PPD placed - that has to be read.----Negative. AV fistula placement evaluation in progress [-Ultrasound vein mapping.] Needs outpatient dialysis chair to be arranged. 18 Patient's Covid was tested on . She is during the first week of infection; 6 days since then. Yes it is reasonable to wait until the to remove her from isolation She is satting 98% in the room air. It appears from Covid perspective she is improving pulmonary freitas. -However she has uremic symptoms and treated symptomatically with antiemetic IV so far. -Plan for long-term dialysis catheter placement/AV fistula. Diabetic gastroparesis -We will change the Reglan to IV form until she feels better. She may benefit with promotility agent. Since she is getting dialysis this does not appear to be related to uremia. Accelerated hypertension during the last few days and today blood pressure on the low normal side. -Reduce the Lopressor dose. End-stage renal disease on hemodialysis -Went for AV fistula placement early next week.
[2020-03-13] MEDS: Metoclopramide HCl 10 MG/2 ML VIAL IVP SCH (14:13)
--- NOTE | 2020-03-13 15:03 | PRG ---
DATE OF SERVICE: 03/13/2020 Melody Andrews is still in isolation from [facility]. She next week. Plan Tuesday, March 17, right arm fistula, hemodialysis catheter, and central line. N.p.o. after midnight Tuesday night. Job ID: [id number]
[2020-03-13] MEDS: Rosuvastatin 5 MG TAB PO SCH (20:38)
[2020-03-14] MEDS: Metoclopramide HCl 10 MG/2 ML VIAL IVP SCH ×4 (01:13→21:41)
[2020-03-14 05:01] LABS: #Eosinphils 0.1 thou/uL (0.0-0.7); #Lymphocytes 1.4 thou/uL (1.20-3.40); #Monocytes 1.1 thou/uL (0.11-0.59); #Neutrophils 6.5 thou/uL (1.40-6.50); %Basophils 0.2 % (0.0-1.0); %Eosinophils 1.2 % (0.0-10.0); %Lymphocytes 15.5 % (21.0-51.0); %Monocytes 12.4 % (0.0-10.0); %Neutrophils 70.7 % (42.0-75.0); Hemoglobin 8.1 g/dL (12.0-16.0); Mean Corpuscular HGB CONC 32.7 g/dL (32.0-36.0); Mean Corpuscular Hemoglobin 31.1 pg (27.0-31.0); Mean Platelet Volume 7.6 fL (7.4-10.4); Platelet Count 264 thou/uL (130-400); RBC Distribution Width 11.9 % (11.5-14.5); White Blood Cell (WBC) Count 9.1 thou/uL (4.8-10.8)
[2020-03-14 05:22] LABS: Anion Gap 20 mmol/L (10-20); BUN (Urea Nitrogen) 15 mg/dL (9.8-20.1); Calc. Creatinine Clearance 20 mL/min (70-130); Calcium 7.5 mg/dL (7.8-10.44); Carbon Dioxide 20 mmol/L (22-29); Chloride 99 mmol/L (98-107); Estimated GFR-MDRD 11; Glucose 167 mg/dL (70-105); Potassium 4.1 mmol/L (3.5-5.1); Sodium 135 mmol/L (136-145)
[2020-03-14] MEDS: Ascorbic Acid 500 mg Chewable Tablet PO SCH (08:23)
[2020-03-14] MEDS: Aspirin 81 mg Enteric Coated Tablet PO SCH (08:24)
[2020-03-14] MEDS: Famotidine 20 MG TAB PO SCH (08:24)
[2020-03-14] MEDS: Calcitriol 0.25 MCG CAP PO SCH (08:24)
[2020-03-14] MEDS: Zinc Sulfate 220 MG CAP PO SCH (08:24)
[2020-03-14] MEDS: Folic Acid 1 MG TAB PO SCH (08:24)
[2020-03-14] MEDS: guaiFENesin ER 600 MG TAB PO SCH ×2 (08:24→20:09)
[2020-03-14] MEDS: Enoxaparin Sodium 30 MG/0.3 ML SYRINGE SC SCH (08:26)
[2020-03-14] MEDS: Metoprolol Tartrate 50 MG TAB PO SCH ×2 (08:39→20:09)
[2020-03-14] MEDS: Minoxidil 2.5 MG TAB PO SCH (08:49)
[2020-03-14] MEDS: hydrALAZINE 25 MG TAB PO SCH ×3 (08:49→20:09)
--- NOTE | 2020-03-14 12:56 | PDOC.HOSPP ---
- Subjective Encounter Date: 03/14/20 Encounter Time: 10:10 Subjective: She feels better no nausea today. Sitting in the bed. Nonrheumatic. Her sats are better at 100%. Her blood pressure is also quite good this morning. - Objective Vital Signs & Weight: Vital Signs (12 hours) Temp Pulse Resp BP Pulse Ox 03/14/20 08:20 97.5 F L 97 18 110/58 L 100 03/14/20 04:10 98.3 F 100 18 130/61 100 03/14/20 01:16 98.0 F 93 14 112/56 L 100 Weight Weight 190 lb 11.2 oz I&O: 03/13/20 03/14/20 03/15/20 06:59 06:59 06:59 Intake Total 960 770 Output Total 0 Balance 960 770 Result Diagrams: 03/14/20 04:32 03/14/20 04:32 Additional Labs: Accuchecks 03/14/20 03/14/20 03/13/20 10:56 05:20 16:58 POC Glucose 213 H 160 H 207 H Hospitalist ROS - Medication Medications: Active Medications Generic Name Dose Route Start Last Admin Trade Name Freq PRN Reason Stop Dose Admin Ascorbic Acid 1,000 mg 03/08/20 09:00 03/14/20 08:23 Ascorbic Acid 500 Mg Chewable Tablet PO 1,000 mg DAILY CINDY Administration Aspirin 81 mg 03/07/20 09:00 03/14/20 08:24 Aspirin 81 Mg Enteric Coated Tablet PO 81 mg DAILY CINDY Administration Calcitriol 0.25 mcg 03/13/20 09:00 03/14/20 08:24 Calcitriol 0.25 Mcg Cap PO 0.25 mcg DAILY CINDY Administration Dextrose/Water 25 gm 03/06/20 20:33 03/09/20 23:06 Dextrose 50% Abboject 50 Ml Syringe SLOW IVP 25 gm PRN PRN Administration Hypoglycemia Diltiazem HCl 180 mg 03/09/20 09:00 03/14/20 08:27 Diltiazem Hcl Cd 180 Mg Capsule PO 180 mg DAILY CINDY Administration Enoxaparin Sodium 30 mg 03/07/20 09:00 03/14/20 08:26 Enoxaparin Sodium 30 Mg/0.3 Ml Syringe SC 30 mg 0900 CINDY Administration Epoetin Jose-epbx 7,500 unit 03/07/20 12:00 03/07/20 20:03 Epoetin Jose-Epbx (Esrd) 4,000 Unit/Ml Vial SC 7,500 unit Q7D CINDY Administration Famotidine 20 mg 03/08/20 09:00 03/14/20 08:24 Famotidine 20 Mg Tab PO 20 mg DAILY CINDY Administration Folic Acid 1 mg 03/07/20 09:00 03/14/20 08:24 Folic Acid 1 Mg Tab PO 1 mg DAILY CINDY Administration Guaifenesin 600 mg 03/07/20 21:00 03/14/20 08:24 Guaifenesin Er 600 Mg Tab PO 600 mg Q12HR CINDY Administration Guaifenesin/Dextromethorphan 15 ml 03/06/20 20:11 03/06/20 22:56 Guaifenesin Dm 100-10/5 Ml Udcup PO 15 ml Q4H PRN Administration Cough Heparin Sodium (Porcine) 500 units 03/08/20 21:00 03/14/20 08:26 Heparin 500 Units/5 Ml Flush Syringe IVF 500 unit Q12HR CINDY Administration Heparin Sodium (Porcine) 500 units 03/08/20 12:45 03/11/20 04:54 Heparin 500 Units/5 Ml Flush Syringe IVF 500 unit PRN PRN Administration Heparin Flush Hydralazine HCl 25 mg 03/11/20 09:00 03/14/20 08:49 Hydralazine 25 Mg Tab PO Not Given TID [facility] Insulin Human Lispro 0 units 03/06/20 20:33 03/08/20 18:27 Humalog 300 Units/3 Ml Vial SC 2 unit .MODERATE SLIDING SC PRN Administration Moderate Correctional Scale Metoclopramide HCl 10 mg 03/13/20 14:00 03/14/20 08:23 Metoclopramide Hcl 10 Mg/2 Ml Vial IVP 10 mg Q8HR [facility] Administration Metoprolol Tartrate 50 mg 03/13/20 21:00 03/14/20 08:39 Metoprolol Tartrate 50 Mg Tab PO 50 mg BID [facility] Administration Minoxidil 5 mg 03/11/20 09:00 03/14/20 08:49 Minoxidil 2.5 Mg Tab PO Not Given DAILY [facility] Ondansetron HCl 4 mg 03/06/20 20:11 03/13/20 08:52 Ondansetron Odt 4 Mg Tab PO 4 mg Q6H PRN Administration Nausea/Vomiting Ondansetron HCl 4 mg 03/06/20 20:11 03/12/20 09:31 Ondansetron Pf 4 Mg/2 Ml Vial IVP 4 mg Q6H PRN Administration Nausea/Vomiting Rosuvastatin Calcium 5 mg 03/13/20 21:00 03/13/20 20:38 Rosuvastatin 5 Mg Tab PO 5 mg QPM CINDY Administration Sodium Chloride 10 ml 03/06/20 21:00 03/14/20 08:50 Flush - Normal Saline 10 Ml Syringe IVF 10 ml Q12HR CINDY Administration Zinc Sulfate 220 mg 03/08/20 09:00 03/14/20 08:24 Zinc Sulfate 220 Mg Cap PO 220 mg DAILY CINDY Administration - Exam General Appearance: NAD, awake alert Eye: PERRL ENT: normocephalic atraumatic Neck: supple Neurological: cranial nerve grossly intact, no focal deficits Musculoskeletal: generalized weakness Psychiatric: A&O x 3 Hosp A/P - Plan COVID-19 pneumonia --Appreciate ID input. She is in the first week of illness. Both antibiotics and Decadron have been discontinued. She does not require oxygen supplementation at this time. Will follow the clinical course and take chest x- ray as needed. -We will follow on inflammatory markers. --not a candidate for Remdesevir d/t renal function SAM/CKD stage IV End-stage renal disease on hemodialysis started yesterday. Via femoral cath. Metabolic acidosis --She is still on sodium bicarb gtt -Will DC as she started to have dialysis and bicarb level seems to be improving and today at 20 Diabetes type 2 with hypoglycemia --Her A1c is 11.4 Lantus 50 units and sliding scale for now. - Dyslipidemia --cont statin Anemia of kidney disease -She is on Retacrit PPD placed - that has to be read.----Negative. Patient's Covid was tested on . She is during the first week of infection; 6 days since then. Yes it is reasonable to wait until the to remove her from isolation She is satting 98% in the room air. It appears from Covid perspective she is improving pulmonary freitas. -However she has uremic symptoms and treated symptomatically with antiemetic IV so far. -Plan for long-term dialysis catheter placement/AV fistula. Diabetic gastroparesis -We will change the Reglan to IV form until she feels better. Since she is getting dialysis her nausea is not related to uremia Accelerated hypertension during the last few days and today blood pressure on the low normal side. -Reduced the Lopressor dose. End-stage renal disease on hemodialysis -AV fistula placement early next week. Needs outpatient dialysis chair to be arranged. DVT ppx: Lovenox GI ppx: Pepcid Code Status: Full
[2020-03-14] MEDS: EPOETIN ALFA-EPBX (ESRD) 4,000 UNIT/ML VIAL SC SCH (13:11)
[2020-03-14] MEDS: Rosuvastatin 5 MG TAB PO SCH (20:09)
[2020-03-15 05:58] LABS: Anion Gap 17 mmol/L (10-20); BUN (Urea Nitrogen) 20 mg/dL (9.8-20.1); Calc. Creatinine Clearance 15 mL/min (70-130); Calcium 7.7 mg/dL (7.8-10.44); Carbon Dioxide 25 mmol/L (22-29); Chloride 98 mmol/L (98-107); Estimated GFR-MDRD 8; Glucose 240 mg/dL (70-105); Potassium 3.9 mmol/L (3.5-5.1); Sodium 136 mmol/L (136-145)
[2020-03-15] MEDS: Metoclopramide HCl 10 MG/2 ML VIAL IVP SCH ×3 (06:18→21:47)
[2020-03-15] MEDS: HumaLOG 300 UNITS/3 ML VIAL SC PRN (06:18)
[2020-03-15] MEDS: Minoxidil 2.5 MG TAB PO SCH (09:04)
[2020-03-15] MEDS: Metoprolol Tartrate 50 MG TAB PO SCH ×2 (09:04→21:47)
[2020-03-15] MEDS: Ascorbic Acid 500 mg Chewable Tablet PO SCH (09:04)
[2020-03-15] MEDS: Enoxaparin Sodium 30 MG/0.3 ML SYRINGE SC SCH (09:04)
[2020-03-15] MEDS: guaiFENesin ER 600 MG TAB PO SCH ×3 (09:05→21:47)
[2020-03-15] MEDS: Aspirin 81 mg Enteric Coated Tablet PO SCH (09:05)
[2020-03-15] MEDS: Zinc Sulfate 220 MG CAP PO SCH (09:05)
[2020-03-15] MEDS: Famotidine 20 MG TAB PO SCH (09:05)
[2020-03-15] MEDS: Calcitriol 0.25 MCG CAP PO SCH (09:05)
[2020-03-15] MEDS: hydrALAZINE 25 MG TAB PO SCH ×3 (09:05→21:47)
[2020-03-15] MEDS: Folic Acid 1 MG TAB PO SCH (09:05)
--- NOTE | 2020-03-15 10:27 | PRG ---
DATE OF SERVICE: 03/15/2020 SUBJECTIVE: Ms. Andrews is a 59-year-old black female with known history of COVID pneumonia. We are following up this patient for progressive azotemia. She has been initiated on dialysis due to worsening renal dysfunction as well as for volume overload. Today, she voices no new complaints. I have scheduled her for her regular dialysis today. We are awaiting for placement of tunneled dialysis catheter and AV fistula next week. OBJECTIVE: VITAL SIGNS: Blood pressure is 143/71, heart rate 104, respiratory rate 20, temperature 98.3, O2 saturation 100%. GENERAL: The patient is awake, alert, comfortable, not in distress. SKIN: Adequate turgor. HEENT: Slightly pale conjunctivae. Anicteric sclerae. No neck mass. No carotid bruits. No JVD. CHEST: No deformities. LUNGS: Decreased breath sounds. HEART: Normal sinus rhythm. No murmurs, gallops, or rubs. ABDOMEN: Globular, soft. Nontender. No masses. EXTREMITIES: No edema. No deformities. MEDICATIONS: Medications of March 15, 2020, reviewed. LABORATORY DATA: On March 14, 2020; white count 9.1, hemoglobin 8.1. On March 15, 2020; sodium 136, potassium 3.9, chloride , carbon dioxide 25, BUN 20, creatinine 5.28, calcium 7.7. ASSESSMENT AND PLAN: 1. End-stage renal disease/chronic renal failure. Hemodialysis today. We will do a 3- hour hemodialysis with fluid removal. So far tolerating said treatment. 2. Anemia, continuing weekly Epogen. 3. COVID-19 pneumonia. Supportive care. 4. Agree with current management. Job ID: [id number]
[2020-03-15] MEDS ORDERED: Heparin 10,000 UNITS/ 10 ML VIAL ONE (14:23)
--- NOTE | 2020-03-15 21:45 | PDOC.HOSPP ---
- Subjective Encounter Date: 03/15/20 Encounter Time: 14:00 Subjective: F/u :COVID The patient has no complaints. No cough, SOB, abdominal pain . - Objective Vital Signs & Weight: Vital Signs (12 hours) Temp Pulse Resp BP Pulse Ox 03/15/20 15:15 98.9 F 103 H 18 123/58 L 95 03/15/20 15:09 92 03/15/20 11:26 99.3 F 92 18 136/73 98 Weight Weight 190 lb 11.2 oz I&O: 03/14/20 03/15/20 03/16/20 06:59 06:59 06:59 Intake Total 770 940 480 Balance 770 940 480 Result Diagrams: 03/14/20 04:32 03/15/20 05:28 Additional Labs: Accuchecks 03/15/20 03/15/20 03/15/20 17:31 11:26 05:49 POC Glucose 188 H 175 H 228 H Hospitalist ROS - Review of Systems Constitutional: denies: fever, chills - Medication Medications: Active Medications Generic Name Dose Route Start Last Admin Trade Name Freq PRN Reason Stop Dose Admin Ascorbic Acid 1,000 mg 03/08/20 09:00 03/15/20 09:04 Ascorbic Acid 500 Mg Chewable Tablet PO 1,000 mg DAILY CINDY Administration Aspirin 81 mg 03/07/20 09:00 03/15/20 09:05 Aspirin 81 Mg Enteric Coated Tablet PO 81 mg DAILY CINDY Administration Calcitriol 0.25 mcg 03/13/20 09:00 03/15/20 09:05 Calcitriol 0.25 Mcg Cap PO 0.25 mcg DAILY CINDY Administration Dextrose/Water 25 gm 03/06/20 20:33 03/09/20 23:06 Dextrose 50% Abboject 50 Ml Syringe SLOW IVP 25 gm PRN PRN Administration Hypoglycemia Diltiazem HCl 180 mg 03/09/20 09:00 03/15/20 09:05 Diltiazem Hcl Cd 180 Mg Capsule PO 180 mg DAILY CINDY Administration Enoxaparin Sodium 30 mg 03/07/20 09:00 03/15/20 09:04 Enoxaparin Sodium 30 Mg/0.3 Ml Syringe SC 30 mg 0900 CINDY Administration Epoetin Jose-epbx 7,500 unit 03/07/20 12:00 03/14/20 13:11 Epoetin Jose-Epbx (Esrd) 4,000 Unit/Ml Vial SC 7,500 unit Q7D CINDY Administration Famotidine 20 mg 03/08/20 09:00 03/15/20 09:05 Famotidine 20 Mg Tab PO 20 mg DAILY CINDY Administration Folic Acid 1 mg 03/07/20 09:00 03/15/20 09:05 Folic Acid 1 Mg Tab PO 1 mg DAILY CINDY Administration Guaifenesin 600 mg 03/07/20 21:00 03/15/20 10:49 Guaifenesin Er 600 Mg Tab PO Not Given Q12HR [facility] Guaifenesin/Dextromethorphan 15 ml 03/06/20 20:11 03/06/20 22:56 Guaifenesin Dm 100-10/5 Ml Udcup PO 15 ml Q4H PRN Administration Cough Heparin Sodium (Porcine) 500 units 03/08/20 21:00 03/15/20 09:03 Heparin 500 Units/5 Ml Flush Syringe IVF 500 unit Q12HR CINDY Administration Heparin Sodium (Porcine) 500 units 03/08/20 12:45 03/11/20 04:54 Heparin 500 Units/5 Ml Flush Syringe IVF 500 unit PRN PRN Administration Heparin Flush Hydralazine HCl 25 mg 03/11/20 09:00 03/15/20 15:09 Hydralazine 25 Mg Tab PO 25 mg TID CINDY Administration Insulin Human Lispro 0 units 03/06/20 20:33 03/15/20 06:18 Humalog 300 Units/3 Ml Vial SC 4 unit .MODERATE SLIDING SC PRN Administration Moderate Correctional Scale Metoclopramide HCl 10 mg 03/13/20 14:00 03/15/20 15:08 Metoclopramide Hcl 10 Mg/2 Ml Vial IVP 10 mg Q8HR CINDY Administration Metoprolol Tartrate 50 mg 03/13/20 21:00 03/15/20 09:04 Metoprolol Tartrate 50 Mg Tab PO 50 mg BID CINDY Administration Minoxidil 5 mg 03/11/20 09:00 03/15/20 09:04 Minoxidil 2.5 Mg Tab PO 5 mg DAILY CINDY Administration Ondansetron HCl 4 mg 03/06/20 20:11 03/13/20 08:52 Ondansetron Odt 4 Mg Tab PO 4 mg Q6H PRN Administration Nausea/Vomiting Ondansetron HCl 4 mg 03/06/20 20:11 03/12/20 09:31 Ondansetron Pf 4 Mg/2 Ml Vial IVP 4 mg Q6H PRN Administration Nausea/Vomiting Rosuvastatin Calcium 5 mg 03/13/20 21:00 03/14/20 20:09 Rosuvastatin 5 Mg Tab PO 5 mg QPM CINDY Administration Sodium Chloride 10 ml 03/06/20 21:00 03/15/20 09:06 Flush - Normal Saline 10 Ml Syringe IVF 10 ml Q12HR CINDY Administration Zinc Sulfate 220 mg 03/08/20 09:00 03/15/20 09:05 Zinc Sulfate 220 Mg Cap PO 220 mg DAILY CINDY Administration - Exam General Appearance: NAD, awake alert Eye: PERRL, anicteric sclera ENT: normocephalic atraumatic, no oropharyngeal lesions Neck: no JVD Heart: RRR, no murmur, no gallops, no rubs Respiratory: CTAB, no wheezes, no rales, no ronchi Gastrointestinal: soft, non-tender, non-distended, normal bowel sounds Extremities: no cyanosis, no clubbing, no edema Skin: normal turgor, no lesions, no rashes Neurological: cranial nerve grossly intact, normal sensation to touch, no focal deficits, no new deficit Hosp A/P - Plan This is a 59 year old female who presented with cough, weakness, diarrhea, te sted positive for COVID COVID - slightly tachycardic, will check chest X ray - she is on room air. Likely can come off isolation tomorrow - PPD negative ESRD - started on dialysis while in the hospital, awaiting on outpatient chair Diabetes type II - A1C 11.4, continue lantus and sliding scale Hyperlipidemia - continue statin ANemia from CKD - continue retacrit Diabetic gastroparesis - continue reglan Hypertension - continue current meds
[2020-03-15] MEDS: Rosuvastatin 5 MG TAB PO SCH (21:47)
--- NOTE | 2020-03-15 23:35 | RAD ---
Portable frontal chest radiograph: 03/15/2020 COMPARISON: 07/21/2014 HISTORY: Cough, Covid, tachycardia FINDINGS: Multifocal interstitial and groundglass opacity noted in the mid lung zones and lung bases, left greater than right, consistent with the provided history of Covid pneumonia. No pneumothorax or large volume pleural effusion. IMPRESSION: Interstitial and groundglass/alveolar opacity consistent with Covid pneumonia.
[2020-03-16] MEDS: HumaLOG 300 UNITS/3 ML VIAL SC PRN ×2 (06:01→13:19)
[2020-03-16] MEDS: Metoclopramide HCl 10 MG/2 ML VIAL IVP SCH ×3 (06:03→20:43)
[2020-03-16] MEDS: Zinc Sulfate 220 MG CAP PO SCH (09:16)
[2020-03-16] MEDS: Calcitriol 0.25 MCG CAP PO SCH (09:16)
[2020-03-16] MEDS: Minoxidil 2.5 MG TAB PO SCH (09:16)
[2020-03-16] MEDS: Ascorbic Acid 500 mg Chewable Tablet PO SCH (09:16)
[2020-03-16] MEDS: Metoprolol Tartrate 50 MG TAB PO SCH ×2 (09:16→20:40)
[2020-03-16] MEDS: Famotidine 20 MG TAB PO SCH (09:17)
[2020-03-16] MEDS: Folic Acid 1 MG TAB PO SCH (09:17)
[2020-03-16] MEDS: Enoxaparin Sodium 30 MG/0.3 ML SYRINGE SC SCH (09:17)
[2020-03-16] MEDS: Aspirin 81 mg Enteric Coated Tablet PO SCH (09:17)
[2020-03-16] MEDS: hydrALAZINE 25 MG TAB PO SCH ×3 (09:17→20:40)
[2020-03-16] MEDS: guaiFENesin ER 600 MG TAB PO SCH ×2 (09:17→20:41)
--- NOTE | 2020-03-16 12:56 | PDOC.HOSPP ---
- Subjective Encounter Date: 03/16/20 Encounter Time: 12:54 Subjective: F/u : COVID The patient has no new symptoms. Denies cough, shortness of breath, diarrhea. SHe is being planned for tunneled cath tomorrow Edema: patient states she had two toes amputated on right leg and had bypass on right leg and she thinks her leg has been swollen since then. She has never had an US to evaluate for clot - Objective Vital Signs & Weight: Vital Signs (12 hours) Temp Pulse Resp BP Pulse Ox 03/16/20 09:20 98.7 F 100 16 129/95 H 98 03/16/20 04:40 98.2 F 100 15 118/60 97 Weight Weight 190 lb 11.2 oz I&O: 03/15/20 03/16/20 03/17/20 06:59 06:59 06:59 Intake Total 940 960 Balance 940 960 Result Diagrams: 03/14/20 04:32 03/15/20 05:28 Additional Labs: Accuchecks 03/16/20 03/16/20 03/15/20 12:39 05:37 22:02 POC Glucose 214 H 270 H 216 H 03/15/20 17:31 POC Glucose 188 H Hospitalist ROS - Review of Systems Constitutional: denies: fever, chills - Medication Medications: Active Medications Generic Name Dose Route Start Last Admin Trade Name Freq PRN Reason Stop Dose Admin Ascorbic Acid 1,000 mg 03/08/20 09:00 03/16/20 09:16 Ascorbic Acid 500 Mg Chewable Tablet PO 1,000 mg DAILY CINDY Administration Aspirin 81 mg 03/07/20 09:00 03/16/20 09:17 Aspirin 81 Mg Enteric Coated Tablet PO 81 mg DAILY CINDY Administration Calcitriol 0.25 mcg 03/13/20 09:00 03/16/20 09:16 Calcitriol 0.25 Mcg Cap PO 0.25 mcg DAILY CINDY Administration Dextrose/Water 25 gm 03/06/20 20:33 03/09/20 23:06 Dextrose 50% Abboject 50 Ml Syringe SLOW IVP 25 gm PRN PRN Administration Hypoglycemia Diltiazem HCl 180 mg 03/09/20 09:00 03/16/20 09:16 Diltiazem Hcl Cd 180 Mg Capsule PO 180 mg DAILY CINDY Administration Enoxaparin Sodium 30 mg 03/07/20 09:00 03/16/20 09:17 Enoxaparin Sodium 30 Mg/0.3 Ml Syringe SC 30 mg 0900 CINDY Administration Epoetin Jose-epbx 7,500 unit 03/07/20 12:00 03/14/20 13:11 Epoetin Jose-Epbx (Esrd) 4,000 Unit/Ml Vial SC 7,500 unit Q7D CINDY Administration Famotidine 20 mg 03/08/20 09:00 03/16/20 09:17 Famotidine 20 Mg Tab PO 20 mg DAILY CINDY Administration Folic Acid 1 mg 03/07/20 09:00 03/16/20 09:17 Folic Acid 1 Mg Tab PO 1 mg DAILY CINDY Administration Guaifenesin 600 mg 03/07/20 21:00 03/16/20 09:17 Guaifenesin Er 600 Mg Tab PO 600 mg Q12HR CINDY Administration Guaifenesin/Dextromethorphan 15 ml 03/06/20 20:11 03/06/20 22:56 Guaifenesin Dm 100-10/5 Ml Udcup PO 15 ml Q4H PRN Administration Cough Heparin Sodium (Porcine) 500 units 03/08/20 21:00 03/16/20 09:17 Heparin 500 Units/5 Ml Flush Syringe IVF 500 unit Q12HR CINDY Administration Heparin Sodium (Porcine) 500 units 03/08/20 12:45 03/11/20 04:54 Heparin 500 Units/5 Ml Flush Syringe IVF 500 unit PRN PRN Administration Heparin Flush Hydralazine HCl 25 mg 03/11/20 09:00 03/16/20 09:17 Hydralazine 25 Mg Tab PO 25 mg TID CINDY Administration Insulin Human Lispro 0 units 03/06/20 20:33 03/16/20 06:01 Humalog 300 Units/3 Ml Vial SC 6 unit .MODERATE SLIDING SC PRN Administration Moderate Correctional Scale Metoclopramide HCl 10 mg 03/13/20 14:00 03/16/20 06:03 Metoclopramide Hcl 10 Mg/2 Ml Vial IVP 10 mg Q8HR CINDY Administration Metoprolol Tartrate 50 mg 03/13/20 21:00 03/16/20 09:16 Metoprolol Tartrate 50 Mg Tab PO 50 mg BID CINDY Administration Minoxidil 5 mg 03/11/20 09:00 03/16/20 09:16 Minoxidil 2.5 Mg Tab PO 5 mg DAILY CINDY Administration Ondansetron HCl 4 mg 03/06/20 20:11 03/13/20 08:52 Ondansetron Odt 4 Mg Tab PO 4 mg Q6H PRN Administration Nausea/Vomiting Ondansetron HCl 4 mg 03/06/20 20:11 03/12/20 09:31 Ondansetron Pf 4 Mg/2 Ml Vial IVP 4 mg Q6H PRN Administration Nausea/Vomiting Rosuvastatin Calcium 5 mg 03/13/20 21:00 03/15/20 21:47 Rosuvastatin 5 Mg Tab PO 5 mg QPM CINDY Administration Sodium Chloride 10 ml 03/06/20 21:00 03/16/20 09:19 Flush - Normal Saline 10 Ml Syringe IVF 10 ml Q12HR CINDY Administration Zinc Sulfate 220 mg 03/08/20 09:00 03/16/20 09:16 Zinc Sulfate 220 Mg Cap PO 220 mg DAILY CINDY Administration - Exam General Appearance: NAD, awake alert Eye: PERRL, anicteric sclera ENT: normocephalic atraumatic, no oropharyngeal lesions Neck: no JVD Heart: RRR, no murmur, no gallops, no rubs Respiratory: CTAB, no wheezes, no rales, no ronchi Gastrointestinal: soft, non-tender, non-distended Gastrointestinal - other findings: right femoral catheter Extremities - other findings: right leg more swollen than left Skin: normal turgor, no lesions, no rashes Hosp A/P - Plan This is a 59 year old female who presented with cough, weakness, diarrhea, tested positive for COVID COVID -chest X ray showed multifocal infiltrates. She is on room air. First positive test was on 03/04. I will remove isolation since she is asymptomatic and not required oxygen - PPD negative ESRD - started on dialysis while in the hospital, awaiting on outpatient chair - plan for tunneled dialysis catheter tomorrow Diabetes type II - A1C 11.4, continue lantus and sliding scale Hyperlipidemia - continue statin ANemia from CKD - continue retacrit Diabetic gastroparesis - continue reglan Hypertension - continue current meds
[2020-03-16 13:31] LABS: Anion Gap 17 mmol/L (10-20); BUN (Urea Nitrogen) 13 mg/dL (9.8-20.1); Calc. Creatinine Clearance 19 mL/min (70-130); Calcium 7.9 mg/dL (7.8-10.44); Carbon Dioxide 23 mmol/L (22-29); Chloride 97 mmol/L (98-107); Estimated GFR-MDRD 11; Glucose 228 mg/dL (70-105); Potassium 3.6 mmol/L (3.5-5.1); Sodium 133 mmol/L (136-145)
[2020-03-16 18:31] LABS: SARS-CoV-2 MS2 Positive; SARS-CoV-2 N Gene Positive; SARS-CoV-2 S Gene Positive; SARS-CoV-2 by NAA DETECTED (NotDetected); SARS-CoV-2 orf1ab Positive
[2020-03-16] MEDS: Rosuvastatin 5 MG TAB PO SCH (20:40)
[2020-03-17 05:14] LABS: Hemoglobin 7.4 g/dL (12.0-16.0); Mean Corpuscular HGB CONC 32.3 g/dL (32.0-36.0); Mean Corpuscular Hemoglobin 30.4 pg (27.0-31.0); Mean Corpuscular Volume 94.3 fL (78.0-98.0); Platelet Count 207 thou/uL (130-400); RBC Distribution Width 11.5 % (11.5-14.5); Red Blood Cell (RBC) Count 2.43 mill/uL (4.20-5.40); White Blood Cell (WBC) Count 8.3 thou/uL (4.8-10.8)
[2020-03-17 05:42] LABS: Anion Gap 15 mmol/L (10-20); BUN (Urea Nitrogen) 16 mg/dL (9.8-20.1); Calc. Creatinine Clearance 17 mL/min (70-130); Calcium 7.9 mg/dL (7.8-10.44); Carbon Dioxide 25 mmol/L (22-29); Chloride 97 mmol/L (98-107); Estimated GFR-MDRD 9; Glucose 256 mg/dL (70-105); Potassium 3.5 mmol/L (3.5-5.1); Sodium 133 mmol/L (136-145)
[2020-03-17] MEDS: Metoclopramide HCl 10 MG/2 ML VIAL IVP SCH ×2 (05:44→15:42)
[2020-03-17] MEDS: HumaLOG 300 UNITS/3 ML VIAL SC PRN (05:50)
[2020-03-17] MEDS ORDERED: Acetaminophen 500 MG TAB PO PRN (07:20)
[2020-03-17] MEDS ORDERED: traMADol HCl 50 MG TAB PO PRN (07:20)
[2020-03-17] MEDS ORDERED: Protamine Sulfate 50 MG/5 ML VIAL ONE (08:50)
[2020-03-17] MEDS ORDERED: Heparin 5,000 UNITS/ML VIAL ONE (08:50)
[2020-03-17] MEDS ORDERED: Bupivacaine 0.25% HCL 30 ML VIAL ONE (08:50)
[2020-03-17] MEDS ORDERED: Sodium Chloride 0.9% 30 ML ONE (08:50)
[2020-03-17] MEDS ORDERED: Lidocaine 1% w/Epinephrine 1:100K 20 ML VIAL ONE (08:50)
[2020-03-17] MEDS ORDERED: Heparin 10,000 UNITS/ 10 ML VIAL ONE (08:50)
[2020-03-17] MEDS ORDERED: Midazolam HCl 2 mg/2 ml Vial ONE (09:31)
[2020-03-17] MEDS ORDERED: Fentanyl 100 MCG/2 ML VIAL ONE (09:31)
[2020-03-17] MEDS ORDERED: methylPREDNISolone Acetate 40 mg/ml Vial ONE (09:32)
[2020-03-17] MEDS ORDERED: Propofol 1,000 MG/100 ML VIAL IV ONE (09:32)
[2020-03-17] MEDS ORDERED: Ketamine 50 MG/ML (10ML VIAL) ONE (09:32)
[2020-03-17] MEDS ORDERED: Levofloxacin 500 mg/D5W 100 ml Premix Bag ONE (10:00)
[2020-03-17] MEDS ORDERED: PROPOFOL 200 MG/20 ML VIAL ONE (10:36)
[2020-03-17] MEDS ORDERED: Lidocaine 1% PF 5 ML VIAL ONE (10:36)
--- NOTE | 2020-03-17 12:09 | RAD ---
PORTABLE CHEST 1 VIEW: Date: 03/17/2020 Time: 1149 hours HISTORY: Central line placement. COMPARISON: 03/15/2020. FINDINGS/IMPRESSION: There has been interval placement of a left internal jugular central venous catheter with tip in the SVC. There is a right-sided dialysis catheter placement with tips in the projection of the SVC and ca voatrial junction. No pneumothoraces or large effusions are seen. There is bilateral pulmonary edema. POS: [facility]
[2020-03-17] MEDS: Enoxaparin Sodium 30 MG/0.3 ML SYRINGE SC SCH (12:37)
[2020-03-17] MEDS: hydrALAZINE 25 MG TAB PO SCH ×2 (12:38→15:41)
[2020-03-17 12:50] VITALS: BMI 28.1
--- NOTE | 2020-03-17 13:17 | OP ---
DATE OF PROCEDURE: 03/17/2020 PREOPERATIVE DIAGNOSES: End-stage renal disease, diabetes, hypertension, peripheral arterial disease, occluded right radial artery, palpable right ulnar artery, history of right femoropopliteal bypass. POSTOPERATIVE DIAGNOSES: End-stage renal disease, diabetes, hypertension, peripheral arterial disease, occluded right radial artery, palpable right ulnar artery, history of right femoropopliteal bypass. PROCEDURES PERFORMED: Right internal jugular cuffed tunneled hemodialysis catheter, left internal jugular central line, right arm primary AV fistula, and cephalic vein forearm to proximal radial artery, outflow cephalic vein primarily upper arm secondary basilic vein. ANESTHESIA: General LMA, local 0.5% Marcaine 30 mL mixed with 1% Xylocaine with epinephrine 20 mL. DESCRIPTION OF PROCEDURE: The patient was taken to the operating room, where under LMA anesthesia, right upper extremity, neck, and chest were prepared with ChloraPrep and draped in routine fashion. Ultrasound used to cannulate the right and left internal jugular veins and J-wire was threaded, trocar catheter removed. Skin site was enlarged sharply on both sides. Stab incision made over the right chest. The tunneling device, the pre-curved [employer] cuffed tunneled hemodialysis catheter tunneled between the 2 incisions, placed the fabric cuff beneath the skin exit site over the right chest. Catheter secured with 2 interrupted suture of 3-0 nylon. Small and medium size dilators were placed over the J-wire. Internal jugular vein removed. Dilator and Peel-Away sheath placed with J-wire into superior vena cava. Dilator and J-wire were removed. Catheter placed through the Peel-Away sheath. Peel-Away sheath removed. Platysma was approximated with 4-0 Monocryl, skin with subdermal 4-0 Monocryl. Likely glue applied. On the left side, Seldinger technique used to place a triple-lumen catheter securing with 3-0 nylon suture. All ports and both catheters aspirated blood flushed with saline solution and the hemodialysis catheter flushed with heparinized saline solution of 1000 units of heparin indicating volume in the port. Final fluoroscopic images revealed good line placement. Incision was made in the proximal volar forearm below the antecubital fossa, longitudinal, carried through skin and subcutaneous tissue. The perforating branch of antecubital vein was too small, ligated with 4-0 silk tie. It was dissected down towards the brachial artery, radial ulnar artery identified. Radial artery was of excellent caliber and had good pulsation despite absence of palpable wrist radial. It was closed proximally and distally and the patient was given 6000 units of heparin intravenously. The cephalic vein to the forearm dissected free, stump ligated on hand side with 2 clips, divided, spatulated, interrogated. Coronary dilators placed from 2 mm to obstruction in the cephalic vein. The atraumatic bulldog clamp applied. Vascular clamps applied to the proximal radial artery proximally and distally. Longitudinal arteriotomy made sharply, elongated for 2.5 cm anastomosis created between the side radial artery and the cephalic vein. Continuous suture of 6-0 Prolene was used completing the anastomosis. Good hemostasis obtained with 6-0 Prolene. Good Doppler signal noted in the upper arm. The patient was given 50 mg of protamine intravenously by Anesthesia. Subcutaneous tissue was approximated with 3-0 Monocryl, skin with subdermal 4-0 Monocryl, and Likely glue applied. Job ID: [id number]
--- NOTE | 2020-03-17 13:19 | PRG ---
DATE OF SERVICE: 03/17/2020 SUBJECTIVE: Melody Andrews is doing well today. She is off her COVID with isolation. I have been asked to see her regarding placement of hemodialysis access as her kidneys have not recovered. She reports a long past history of insulin-dependent diabetes mellitus and hypertension. Only surgery she has had is a right leg bypass, femoral-popliteal and right great toe amputation and tubal ligation. The patient has been taken off isolation from her COVID illnesses. Plan today is hemodialysis catheter and central line and right arm fistula. Ultrasound vein mapping suggest veins to be superior on the right arm. On exam, she has palpable ulnar pulse, but not palpable radial pulse. PLAN: For right arm primary AV fistula, central line, hemodialysis catheter to enable removal of groin catheter. She understands risks and benefits and consents. Job ID: [id number]
[2020-03-17] MEDS: guaiFENesin ER 600 MG TAB PO SCH (15:35)
[2020-03-17] MEDS: Metoprolol Tartrate 50 MG TAB PO SCH (15:36)
[2020-03-17] MEDS: Folic Acid 1 MG TAB PO SCH (15:41)
[2020-03-17] MEDS: Calcitriol 0.25 MCG CAP PO SCH (15:41)
[2020-03-17] MEDS: Minoxidil 2.5 MG TAB PO SCH (15:41)
[2020-03-17] MEDS: Zinc Sulfate 220 MG CAP PO SCH (15:41)
[2020-03-17] MEDS: Ascorbic Acid 500 mg Chewable Tablet PO SCH (15:41)
[2020-03-17] MEDS: Aspirin 81 mg Enteric Coated Tablet PO SCH (15:42)
[2020-03-17] MEDS: Famotidine 20 MG TAB PO SCH (15:42)
[2020-03-17 15:49] VITALS: BP 136/65; TEMP 97.7
--- NOTE | 2020-03-17 18:49 | PDOC.DS.DS ---
Provider - Provider Date of Admission: 03/06/20 20:11 Date of Discharge: 03/17/20 Admitting Provider: Sinan Tate MD Consultations: Cardiology (Dr. Villalba), Nephrology (Dr. gustavo Sterling), Other (Cardiovascular surgery with Dr. Cooper) Primary Care Physician: Sinan Tate MD Course - Hospital Course Hospital Course: Discharge Diagnoses: 1. COVId 19 pneumonia 2. ESRD newly diagnosed Brief HPI: This is a 59-year-old female with past medical history of CKD stage IV, diabetes, hypertension presented to the hospital due to generalized weakness and anorexia. She also reported productive cough and was unable to hold her own weight. Chest x-ray showed bilateral pneumonia. She was given 1 dose of ceftriaxone and azithromycin in the ER . She was diagnosed with COVID-19 2 days prior and was admitted for further work-up. Hospital Course: COVID:-chest X ray showed multifocal infiltrates. She is on room air. She did not receive any steroids or antibiotics and did very well. She had a repeat Covid test on 03/16 which was positive but she was taken off isolation since that she completed 10 days of quarantine. ESRD: Nephrology was consulted . The patient was started on dialysis while in the hospital. She had a Marsh catheter placed on 03/16 and AV fistula placed on the right arm placed 03/17. She was set up with outpatient dialysis with [facility] in [place] and will get that on Tuesday. She will then transition to a Tuesday, , Tuesday schedule. After 21 days from her first positive Covid test, she will then be transitioned to [place] for dialysis. Diabetes type II : Patient was on 90 units of insulin at home. Her blood sugars in the hospital however were 70s to 200 without any long-acting insulin. Ther efore she was discharged on Lantus 6 units nightly. She should follow-up with her PCP for further adjustments. Her hemoglobin A1C was 11.4. Hypertension: Patient's diltiazem was reduced to 180 mg. She was started on minoxidil 5 mg daily, hydralazine 25 mg 3 times daily metoprolol 50 mg twice daily. Her Lasix was discontinued since patient does not make much urine. She will follow up with her sap functional analyst and primary care doctor for additional titration. Pertinent Studies: US Vein mapping: see detailed report Chest X ray 03/15: bilateral pulmonary edema Chest X ray 03/15: ground glass alveolar opacitiy consistent with COVID 19 pneumonia Procedures: Right arm AV fistula placed 03/17 Marsh catheter placed 03/17 Left internal jugular central line placed 03/17 which was removed on 03/17 Right femoral dialysis catheter placed 03/11 which was removed on 03/17 Resuscitation Status: 03/06/20 20:11 Resuscitation Status Routine Resuscitation Status: FULL: Full Resuscitation - Labs Lab Results: 03/17/20 04:33 03/17/20 04:33 Abnormal Lab Results - Last 48 hrs 03/16/20 09:20: SARS-CoV-2 (PCR) DETECTED A* 03/16/20 13:05: Sodium 133 L, Chloride 97 L, Creatinine 4.19 H 03/17/20 04:33: Sodium 133 L, Chloride 97 L, Creatinine 4.82 H 03/17/20 04:33: RBC 2.43 L, Hgb 7.4 L, Hct 22.9 L - Physical Exam Vitals: Vital Signs (12 hours) Temp Pulse Resp BP BP Pulse Ox 03/17/20 15:48 97.7 F 105 H 18 136/65 100 03/17/20 12:21 97.5 F L 93 18 123/61 99 03/17/20 08:54 98.6 F 107 H 16 143/70 H 98 Weight Admit Weight 180 lb Weight 190 lb 11.2 oz Physical Exam: The patient was seen and examined on the day of discharge. Physical exam: General: alert, awake, oriented times three CV: RRR, no murmurs, rubs, gallops Lungs: CTAB Abdomen: +BS, soft, nontender, nondistended Extremities: right arm AV fistula Chest: marsh catheter in place Problem - Discharge Plan Plan of Treatment: Follow up with [place] dialysis on Tuesday. Thereafter he will continue dialysis Tuesday and Tuesday at 4:45 PM. You can then be transitioned to [place] after 21 days of having Covid - Time spent with Patient (mins): 40 Plan - Discharge Medications Prescriptions: hydrALAZINE [Apresoline] 25 mg PO TID #90 tab Diltiazem HCl [Cardizem CD] 180 mg PO DAILY #30 cap Insulin Glargine [Lantus] 6 units SC HS #30 vial Minoxidil 5 mg PO DAILY #60 tab Calcitriol [Rocaltrol] 0.25 mcg PO DAILY #30 cap Home Medications: Medication Instructions Recorded Confirmed Type Aspirin [Ecotrin Low Strength] 81 mg PO DAILY 03/06/20 03/06/20 History Folic Acid [Folvite] 1 mg PO DAILY 03/06/20 03/06/20 History Metoprolol Tartrate [Lopressor] 50 mg PO BID 03/06/20 03/06/20 History Rosuvastatin Calcium 40 mg PO QPM 03/06/20 03/06/20 History Calcitriol [Rocaltrol] 0.25 mcg PO DAILY #30 cap 03/17/20 Rx Diltiazem HCl [Cardizem CD] 180 mg PO DAILY #30 cap 03/17/20 Rx Insulin Glargine [Lantus] 6 units SC HS #30 vial 03/17/20 Rx Minoxidil 5 mg PO DAILY #60 tab 03/17/20 Rx hydrALAZINE [Apresoline] 25 mg PO TID #90 tab 03/17/20 Rx Allergies: cephalexin [From Keflex] Allergy (Verified 03/06/20 17:52) metformin Allergy (Verified 03/06/20 17:52) - Discharge Instructions Activity:: Activity as Tolerated - Follow up Plan Referrals: Earl Ramirez MD [Active] - 3-4 Weeks (Please follow up with Dr Ramirez in 3- 4 weeks. Call the office to schedule an appointment.) DIONNE DE LA TORRE [ Not on Staff] - 7 Days (Please follow up with your primary care provider in 7days. Call the office to schedule an appointment.) Gustavo Sterling MD [Active] - (please follow up with your dialysis schedule Tuesday, , Tuesday) Disposition: HOME Quality - Care Measures CORE MEASURES:: N/A
== END 2020-03-17 19:30 | disposition home or self-care (01) | DRG 673 ==
LOC: 2SW 16:34 → OBSVTOIN 20:11
PROVIDERS: ADMIT Student in an Organized Health Care Education/Training Program; ATTEND Internal Medicine
PROC: 8E0ZXY6 Isolation (ICD-10-PCS; 2020-03-06)
PROC: 06HY33Z Insertion of Infusion Device into Lower Vein, Percutaneous Approach (ICD-10-PCS; 2020-03-07)
PROC: 5A1D70Z Performance of Urinary Filtration, Intermittent, Less than 6 Hours Per Day (ICD-10-PCS; principal; 2020-03-11)
PROC: 031B0ZF Bypass Right Radial Artery to Lower Arm Vein, Open Approach (ICD-10-PCS; 2020-03-17)
PROC: 02HV33Z Insertion of Infusion Device into Superior Vena Cava, Percutaneous Approach (ICD-10-PCS; 2020-03-17)
PROC: B518ZZA Fluoroscopy of Superior Vena Cava, Guidance (ICD-10-PCS; 2020-03-17)
PROC: 0JH60XZ Insertion of Tunneled Vascular Access Device into Chest Subcutaneous Tissue and Fascia, Open Approach (ICD-10-PCS; 2020-03-17)
PROC: 02HV33Z Insertion of Infusion Device into Superior Vena Cava, Percutaneous Approach (ICD-10-PCS; 2020-03-17)
PROC: B548ZZA Ultrasonography of Superior Vena Cava, Guidance (ICD-10-PCS; 2020-03-17)
DX: N17.9 Acute kidney failure, unspecified (principal); U07.1 COVID-19; J12.89 Other viral pneumonia; E87.2 Acidosis; N18.6 End stage renal disease; E11.22 Type 2 diabetes mellitus with diabetic chronic kidney disease; E11.51 Type 2 diabetes mellitus with diabetic peripheral angiopathy without gangrene; E78.5 Hyperlipidemia, unspecified; I10 Essential (primary) hypertension; E11.40 Type 2 diabetes mellitus with diabetic neuropathy, unspecified; G89.29 Other chronic pain; E55.9 Vitamin D deficiency, unspecified; M81.0 Age-related osteoporosis without current pathological fracture; N25.81 Secondary hyperparathyroidism of renal origin; D63.1 Anemia in chronic kidney disease; E11.649 Type 2 diabetes mellitus with hypoglycemia without coma; E11.43 Type 2 diabetes mellitus with diabetic autonomic (poly)neuropathy; K31.84 Gastroparesis; Z88.8 Allergy status to other drugs, medicaments and biological substances; Z28.21 Immunization not carried out because of patient refusal; Z95.828 Presence of other vascular implants and grafts; Z87.891 Personal history of nicotine dependence; Z79.899 Other long term (current) drug therapy; Z79.82 Long term (current) use of aspirin; Z88.1 Allergy status to other antibiotic agents; Z86.73 Personal history of transient ischemic attack (TIA), and cerebral infarction without residual deficits; Z89.421 Acquired absence of other right toe(s); Z98.51 Tubal ligation status; Z79.4 Long term (current) use of insulin
CPT/HCPCS: 36415; 36416; 71045; 80048; 80053; 83036; 83735; 83970; 84100; 84145; 85007; 85025; 85027; 85610; 86140; 86580; 86704; 86706; 86803; 87340; 87635; 90935; 93970; A4217; C1751; C1752; G0257; J0360; J0456; J0690; J0696; J1100; J1642; J1644; J1650; J1815; J1956; J2250; J2405; J2704; J2720; J2765; J2920; J3010; J3490; J7042; J7050; Q0162; Q5105; S0020; U0003

== ENCOUNTER 2020-03-23 14:19 | Emergency (ER) | payer MEDICARE, MEDICAID ==
[2020-03-23] MEDS ORDERED: Ondansetron PF 4 MG/2 ML Vial ONE ×2 (15:24→16:52)
[2020-03-23 15:44] LABS: #Lymphocytes 0.8 thou/uL (1.20-3.40); #Monocytes 1.1 thou/uL (0.11-0.59); #Neutrophils 8.6 thou/uL (1.40-6.50); %Basophils 0.1 % (0.0-1.0); %Eosinophils 0.1 % (0.0-10.0); %Lymphocytes 7.5 % (21.0-51.0); %Monocytes 10.1 % (0.0-10.0); %Neutrophils 82.2 % (42.0-75.0); Hemoglobin 8.1 g/dL (12.0-16.0); Mean Corpuscular HGB CONC 33.1 g/dL (32.0-36.0); Mean Corpuscular Hemoglobin 31.3 pg (27.0-31.0); Mean Corpuscular Volume 94.7 fL (78.0-98.0); Mean Platelet Volume 7.9 fL (7.4-10.4); Platelet Count 200 thou/uL (130-400); RBC Distribution Width 11.7 % (11.5-14.5); Red Blood Cell (RBC) Count 2.58 mill/uL (4.20-5.40); White Blood Cell (WBC) Count 10.5 thou/uL (4.8-10.8)
[2020-03-23 15:57] LABS: Phosphorus 5.8 mg/dL (2.3-4.7)
[2020-03-23 16:05] LABS: ALT (SGPT) 12 U/L (8-55); AST (SGOT) 9 U/L (5-34); Albumin 2.4 g/dL (3.5-5.0); Alkaline Phosphatase 99 U/L (40-110); Anion Gap 24 mmol/L (10-20); BUN (Urea Nitrogen) 26 mg/dL (9.8-20.1); Bilirubin, Total 0.3 mg/dL (0.2-1.2); Calc. Creatinine Clearance 0 mL/min (70-130); Calcium 8.4 mg/dL (7.8-10.44); Carbon Dioxide 21 mmol/L (22-29); Chloride 97 mmol/L (98-107); Estimated GFR-MDRD 9; Globulin 3.7 g/dL (2.4-3.5); Glucose 350 mg/dL (70-105); Lipase Less than 4 U/L (8-78); Protein, Total 6.1 g/dL (6.0-8.3); Sodium 139 mmol/L (136-145)
[2020-03-23 16:12] LABS: Potassium 2.9 mmol/L (3.5-5.1)
[2020-03-23] MEDS ORDERED: Promethazine HCl 25 MG/ML VIAL ONE (17:59)
[2020-03-23] MEDS ORDERED: Potassium Chloride 20 MEQ TAB ONE (18:15)
== END 2020-03-23 19:32 | disposition home or self-care (01) ==
LOC: ERS 14:19
DX: I12.0 Hypertensive chronic kidney disease with stage 5 chronic kidney disease or end stage renal disease (principal); N18.6 End stage renal disease; E87.6 Hypokalemia; Z79.899 Other long term (current) drug therapy; E78.00 Pure hypercholesterolemia, unspecified; E11.22 Type 2 diabetes mellitus with diabetic chronic kidney disease; J44.9 Chronic obstructive pulmonary disease, unspecified
CPT/HCPCS: 80053; 82553; 83690; 83735; 84100; 84484; 85025; 96374; 96375; 96376; J2405; J2550

== ENCOUNTER 2022-04-25 09:15 | Inpatient (IN) | payer MEDICARE, MEDICAID ==
[2022-04-25 09:56] LABS: Hemoglobin 10.2 g/dL (12.0-16.0); Mean Corpuscular HGB CONC 33.4 g/dL (32.0-36.0); Mean Corpuscular Hemoglobin 34.1 pg (27.0-31.0); Mean Platelet Volume 8.7 fL (7.4-10.4); Platelet Count 134 10x3/uL (130-400); RBC Distribution Width 13.4 % (11.5-14.5); Red Blood Cell (RBC) Count 2.99 mill/uL (4.20-5.40); White Blood Cell (WBC) Count 25.5 10x3/uL (4.8-10.8)
[2022-04-25 10:05] LABS: INR-International Normal Ratio 1.3; PTT 37.2 sec (22.9-36.1); Prothrombin Time 16.9 sec (12.0-14.7)
[2022-04-25 10:13] LABS: Actual Bicarbonate (HCO3v) 25 mEq/L (22-28); Base Excess 0.7 mEq/L (-2.0 to +3.0); Calcium, Ionized (venous) 1.09 mmol/L (1.16-1.32); Chloride (VBG) 90 mmol/L (98-106); Hemoglobin (Hb) 10.5 g/dL (11.7-16.0); Sodium 122.5 mmol/L (133-146); pH (venous) 7.42 (7.32-7.43)
[2022-04-25 10:16] LABS: Band 6 % (5-11); Lymphocytes 3 % (21-51); MDiff Complete? YES; Macrocytosis SLIGHT = 6-15 cells (100X) (0-5/hpf); Monocytes 2 % (0-10); Neutrophil 89 % (42-75); Platelet Morphology Comment Appears Adequate
[2022-04-25 10:20] LABS: ALT (SGPT) Less than 7 U/L (8-55); AST (SGOT) 6 U/L (5-34); Albumin 3.2 g/dL (3.4-4.8); Alkaline Phosphatase 97 U/L (40-110); Anion Gap 22 mmol/L (10-20); BUN (Urea Nitrogen) 38 mg/dL (9.8-20.1); Bilirubin, Total 0.5 mg/dL (0.2-1.2); Calc. Creatinine Clearance 0 mL/min (70-130); Calcium 8.8 mg/dL (7.8-10.44); Carbon Dioxide 22 mmol/L (23-31); Chloride 86 mmol/L (98-107); Estimated GFR 10; Globulin 3.5 g/dL (2.4-3.5); Magnesium 1.9 mg/dL (1.6-2.6); Potassium 3.7 mmol/L (3.5-5.1); Protein, Total 6.7 g/dL (5.8-8.1); Sodium 126 mmol/L (136-145)
[2022-04-25 10:28] LABS: Glucose 507 mg/dL (80-115)
[2022-04-25 10:36] LABS: CKMB 1.7 ng/mL (0-6.6)
[2022-04-25 10:40] LABS: Bacteria/HPF 4+ HPF (None Seen); Bilirubin Negative (Negative); Blood, Urine 3+ (Negative); Glucose, Urine (Dipstick) 500 mg/dL (Negative); Ketone, Urine Trace mg/dL (Negative); Leukocyte 500 Leu/uL (Negative); Nitrite Negative (Negative); Protein, Urine (Dipstick) 300 mg/dL (Neg-Trace); RBC/HPF Greater than 50 HPF (0-3); Specific Gravity, Urine 1.027 (1.002-1.036); Squamous Epithelial 0-3 HPF (0-3); Urobilinogen Normal mg/dL (Less than 2); WBC/HPF Greater than 50 HPF (0-3)
[2022-04-25 10:41] LABS: Clarity Turbid (Clear)
[2022-04-25] MEDS ORDERED: Acetaminophen 325 MG TAB PO PRN (11:27)
[2022-04-25] MEDS ORDERED: Ondansetron ODT 4 MG TAB PO PRN (11:27)
[2022-04-25] MEDS ORDERED: Morphine 2 MG/ML VIAL SLOW IVP PRN (11:35)
[2022-04-25] MEDS ORDERED: Vancomycin 1 GM/200 ML (FROZEN) BAG ONE (11:44)
[2022-04-25] MEDS ORDERED: Dextrose 50% Abboject 50 ML SYRINGE SLOW IVP PRN (12:22)
[2022-04-25] MEDS ORDERED: Dextrose 5% in Water 1,000 ML IV PRN (12:22)
[2022-04-25 12:56] LABS: Magnesium 1.8 mg/dL (1.6-2.6)
[2022-04-25 13:58] LABS: Troponin I 0.034 ng/mL (< 0.028)
[2022-04-25 15:24] LABS: Actual Bicarbonate (HCO3a) 24.1 mEq/L (22-28); Base Excess (BEa) -1.1 mEq/L (-2.0 to +3.0); CO2 Tension 41.9 mmHg (35.0-45.0); Calcium, Ionized (arterial) 1.15 mmol/L (1.12-1.30); Carboxyhemoglobin (COHb) 1.2 gm% (0.0-3.0); O2 Tension (PaO2), arterial 77.8 mmHg (> 80.0); Potassium - ABG Lab 3.46 mmol/L (3.70-5.30); pH, Arterial 7.38 (7.35-7.45)
[2022-04-25 15:26] LABS: Puncture Site LRA
[2022-04-25] MEDS: cefTRIAXone\\ROCEPHIN 1 GM in Sodium Chloride 0.9% 100 ML IVPB SCH (15:47)
[2022-04-25 15:51] LABS: Anion Gap 21 mmol/L (10-20); BUN (Urea Nitrogen) 40 mg/dL (9.8-20.1); Calc. Creatinine Clearance 0 mL/min (70-130); Calcium 8.5 mg/dL (7.8-10.44); Carbon Dioxide 21 mmol/L (23-31); Chloride 87 mmol/L (98-107); Estimated GFR 10; Potassium 3.7 mmol/L (3.5-5.1); Sodium 125 mmol/L (136-145)
[2022-04-25 15:57] LABS: Glucose 588 mg/dL (80-115); Troponin I 0.038 ng/mL (< 0.028)
[2022-04-25] MEDS ORDERED: Vancomycin HCl 500 MG in Sodium Chloride 0.9% 100 ML IVPB SCH (17:00)
[2022-04-25] MEDS ORDERED: Vancomycin Hemodialysis Sliding Scale FS SCH (17:00)
[2022-04-25] MEDS: HumaLOG 300 UNITS/3 ML VIAL SC PRN ×2 (17:33→21:41)
[2022-04-25] MEDS ORDERED: Vancomycin 1 GM in Premix Bag 1 BAG IVPB SCH (21:00)
[2022-04-25] MEDS: Morphine 4 MG/ML VIAL SLOW IVP PRN (21:26)
[2022-04-25] MEDS: Atorvastatin Calcium 40 MG TAB PO SCH (21:27)
[2022-04-26] MEDS: Ondansetron PF 4 MG/2 ML Vial IVP PRN ×3 (04:44→19:05)
[2022-04-26 05:30] LABS: Anion Gap 17 mmol/L (10-20); BUN (Urea Nitrogen) 48 mg/dL (9.8-20.1); Calc. Creatinine Clearance 11 mL/min (70-130); Calcium 8.5 mg/dL (7.8-10.44); Carbon Dioxide 23 mmol/L (23-31); Chloride 91 mmol/L (98-107); Cholesterol 121 mg/dl (< 200 Desired); Estimated GFR 9; Glucose 154 mg/dL (80-115); HDL Cholesterol 30 mg/dL (>60 Neg Risk); LDL Cholesterol, Calculated 78 mg/dL; Potassium 3.8 mmol/L (3.5-5.1); Sodium 127 mmol/L (136-145); Triglycerides 64 mg/dL (Less than 150)
[2022-04-26 06:43] LABS: Band 18 % (5-11); Eosinophils 1 % (0-10); Hemoglobin 9.1 g/dL (12.0-16.0); Lymphocytes 3 % (21-51); MDiff Complete? YES; Mean Corpuscular HGB CONC 32.4 g/dL (32.0-36.0); Mean Corpuscular Hemoglobin 33.6 pg (27.0-31.0); Mean Platelet Volume 8.7 fL (7.4-10.4); Monocytes 3 % (0-10); Neutrophil 75 % (42-75); Platelet Count 136 10x3/uL (130-400); RBC Distribution Width 13.3 % (11.5-14.5); White Blood Cell (WBC) Count 23.5 10x3/uL (4.8-10.8)
[2022-04-26 07:12] LABS: Vancomycin, Random 21.3 ug/mL (See Comment)
[2022-04-26] MEDS: Morphine 4 MG/ML VIAL SLOW IVP PRN (07:21)
[2022-04-26] MEDS ORDERED: Heparin 10,000 UNITS/ 10 ML VIAL ONE (10:19)
[2022-04-26 11:44] LABS: HBSAg Index 0.28 S/CO (0-0.99); Hep B Core Total Ab Non-Reactive (NonReactive); Hep B Core Total Index 0.13 S/CO (0-0.79); Hep B Surf Ag Non-Reactive S/CO (NonReactive); Hep C IgG Ab Non-Reactive (NonReactive); Hep C Index 0.07 S/CO (0-0.79)
[2022-04-26 11:48] LABS: HBSAB Concentration 25.07 mIU/mL; Hep B Surf AB Reactive (NonReactive)
[2022-04-26] MEDS: cefTRIAXone\\ROCEPHIN 1 GM in Sodium Chloride 0.9% 100 ML IVPB SCH (13:29)
[2022-04-26] MEDS ORDERED: Meropenem 1 GM in Sodium Chloride 0.9% 100 ML IVPB SCH ×2 (14:00→17:00)
[2022-04-26] MEDS: traMADol HCl 50 MG TAB PO PRN ×2 (14:34→21:03)
[2022-04-26] MEDS ORDERED: Vancomycin HCl 250 MG in Sodium Chloride 0.9% 100 ML IVPB SCH (17:00)
[2022-04-26] MEDS: Atorvastatin Calcium 40 MG TAB PO SCH (21:03)
[2022-04-26] MEDS: Meropenem 500 MG in Sodium Chloride 0.9% 100 ML IVPB SCH (23:05)
[2022-04-27 06:30] LABS: Anion Gap 23 mmol/L (10-20); BUN (Urea Nitrogen) 26 mg/dL (9.8-20.1); Calc. Creatinine Clearance 17 mL/min (70-130); Carbon Dioxide 15 mmol/L (23-31); Chloride 98 mmol/L (98-107); Potassium 4.6 mmol/L (3.5-5.1); Sodium 131 mmol/L (136-145)
[2022-04-27 06:31] LABS: Calcium 8.5 mg/dL (7.8-10.44); Estimated GFR 16; Glucose 190 mg/dL (80-115)
[2022-04-27] MEDS ORDERED: Iopamidol 370 76% 100 ML VIAL ONE (08:41)
[2022-04-27] MEDS: Aspirin 81 mg Enteric Coated Tablet PO SCH (09:13)
[2022-04-27 10:46] LABS: #Lymphocytes 0.7 thou/uL (1.20-3.40); #Monocytes 0.8 thou/uL (0.11-0.59); #Neutrophils 21.5 thou/uL (1.40-6.50); %Basophils 0.1 % (0.0-1.0); %Eosinophils 0.2 % (0.0-10.0); %Lymphocytes 3.2 % (21.0-51.0); %Monocytes 3.6 % (0.0-10.0); %Neutrophils 92.9 % (42.0-75.0); Hemoglobin 9.1 g/dL (12.0-16.0); Mean Corpuscular HGB CONC 32.6 g/dL (32.0-36.0); Mean Corpuscular Hemoglobin 33.9 pg (27.0-31.0); Mean Platelet Volume 8.3 fL (7.4-10.4); Platelet Count 144 10x3/uL (130-400); RBC Distribution Width 13.2 % (11.5-14.5); Red Blood Cell (RBC) Count 2.69 mill/uL (4.20-5.40); White Blood Cell (WBC) Count 23.1 10x3/uL (4.8-10.8)
[2022-04-27] MEDS: traMADol HCl 50 MG TAB PO PRN (11:40)
[2022-04-27] MEDS: HumaLOG 300 UNITS/3 ML VIAL SC PRN (11:40)
[2022-04-27] MEDS: Morphine 4 MG/ML VIAL SLOW IVP PRN (21:09)
[2022-04-27] MEDS: Meropenem 500 MG in Sodium Chloride 0.9% 100 ML IVPB SCH (21:09)
[2022-04-27] MEDS: Atorvastatin Calcium 40 MG TAB PO SCH (21:09)
[2022-04-27] MEDS: Ondansetron PF 4 MG/2 ML Vial IVP PRN (21:12)
[2022-04-28 05:20] LABS: #Lymphocytes 0.9 thou/uL (1.20-3.40); #Neutrophils 20.6 thou/uL (1.40-6.50); %Basophils 0.1 % (0.0-1.0); %Eosinophils 0.2 % (0.0-10.0); %Lymphocytes 3.8 % (21.0-51.0); %Monocytes 4.6 % (0.0-10.0); %Neutrophils 91.3 % (42.0-75.0); Hemoglobin 8.9 g/dL (12.0-16.0); Mean Corpuscular HGB CONC 32.4 g/dL (32.0-36.0); Mean Corpuscular Hemoglobin 33.6 pg (27.0-31.0); Mean Platelet Volume 8.2 fL (7.4-10.4); Platelet Count 146 10x3/uL (130-400); RBC Distribution Width 13.3 % (11.5-14.5); Red Blood Cell (RBC) Count 2.66 mill/uL (4.20-5.40); White Blood Cell (WBC) Count 22.6 10x3/uL (4.8-10.8)
[2022-04-28 05:23] LABS: Anion Gap 17 mmol/L (10-20); BUN (Urea Nitrogen) 36 mg/dL (9.8-20.1); Calc. Creatinine Clearance 13 mL/min (70-130); Calcium 8.7 mg/dL (7.8-10.44); Carbon Dioxide 24 mmol/L (23-31); Chloride 92 mmol/L (98-107); Estimated GFR 12; Glucose 149 mg/dL (80-115); Sodium 129 mmol/L (136-145)
[2022-04-28] MEDS ORDERED: Lidocaine 1% (PF) 30 ML VIAL ONE (06:22)
[2022-04-28] MEDS ORDERED: Midazolam HCl 2 mg/2 ml Vial ONE (06:23)
[2022-04-28] MEDS ORDERED: FENTANYL 50 MCG/ML 1 ML VIAL ONE (06:23)
[2022-04-28] MEDS ORDERED: Heparin 10,000 UNITS/ 10 ML VIAL ONE (07:34)
[2022-04-28 08:24] LABS: Vancomycin, Random 16.3 ug/mL (See Comment)
[2022-04-28] MEDS ORDERED: Epoetin (ESRD) 20,000 UNITS/ML SC SCH (08:45)
[2022-04-28] MEDS: Losartan 25 MG TAB PO SCH (09:28)
[2022-04-28] MEDS: NIFEdipine XL 30 MG TAB PO SCH (09:28)
[2022-04-28] MEDS: Aspirin 81 mg Enteric Coated Tablet PO SCH (09:28)
[2022-04-28] MEDS ORDERED: Epoetin (ESRD) 10,000 UNITS/ML VIAL SC SCH (12:00)
[2022-04-28] MEDS ORDERED: Iopamidol 370 76% 50 ML VIAL FS ONE (12:53)
[2022-04-28] MEDS ORDERED: Vancomycin HCl 500 MG in Sodium Chloride 0.9% 100 ML IVPB SCH (17:00)
[2022-04-28] MEDS: traMADol HCl 50 MG TAB PO PRN ×2 (17:12→23:31)
[2022-04-28] MEDS: Atorvastatin Calcium 40 MG TAB PO SCH (20:30)
[2022-04-28] MEDS: Meropenem 500 MG in Sodium Chloride 0.9% 100 ML IVPB SCH (20:31)
[2022-04-28] MEDS: Morphine 4 MG/ML VIAL SLOW IVP PRN (23:37)
[2022-04-29 04:18] LABS: #Eosinphils 0.1 thou/uL (0.0-0.7); #Monocytes 1.2 thou/uL (0.11-0.59); #Neutrophils 19.7 thou/uL (1.40-6.50); %Basophils 0.2 % (0.0-1.0); %Eosinophils 0.2 % (0.0-10.0); %Lymphocytes 4.4 % (21.0-51.0); %Monocytes 5.6 % (0.0-10.0); %Neutrophils 89.6 % (42.0-75.0); Mean Corpuscular HGB CONC 32.1 g/dL (32.0-36.0); Mean Corpuscular Hemoglobin 33.2 pg (27.0-31.0); Mean Platelet Volume 8.6 fL (7.4-10.4); Platelet Count 145 10x3/uL (130-400); RBC Distribution Width 13.4 % (11.5-14.5); Red Blood Cell (RBC) Count 2.71 mill/uL (4.20-5.40)
[2022-04-29 04:41] LABS: Phosphorus 3.6 mg/dL (2.3-4.7)
[2022-04-29 04:42] LABS: Anion Gap 13 mmol/L (10-20); BUN (Urea Nitrogen) 21 mg/dL (9.8-20.1); Calc. Creatinine Clearance 19 mL/min (70-130); Calcium 8.6 mg/dL (7.8-10.44); Carbon Dioxide 29 mmol/L (23-31); Chloride 97 mmol/L (98-107); Estimated GFR 18; Glucose 169 mg/dL (80-115); Potassium 3.5 mmol/L (3.5-5.1); Sodium 135 mmol/L (136-145)
[2022-04-29] MEDS: Gabapentin 300 MG CAP PO SCH (09:20)
[2022-04-29] MEDS: Losartan 25 MG TAB PO SCH (09:20)
[2022-04-29] MEDS: NIFEdipine XL 30 MG TAB PO SCH (09:20)
[2022-04-29] MEDS: Aspirin 81 mg Enteric Coated Tablet PO SCH (09:21)
[2022-04-29] MEDS ORDERED: Fentanyl 250 MCG/5 ML VIAL ONE (12:43)
[2022-04-29] MEDS ORDERED: Ketamine 50 MG/ML (10ML VIAL) ONE (12:48)
[2022-04-29] MEDS ORDERED: Sodium Chloride 0.9% 0 ML ONE (13:03)
[2022-04-29] MEDS ORDERED: CEFAZOLIN 2 GM VIAL ONE (13:03)
[2022-04-29] MEDS ORDERED: PHENYLEPHRINE-NS 100 MCG/ML 10 ML SYRINGE ONE (13:10)
[2022-04-29] MEDS ORDERED: Ondansetron PF 4 MG/2 ML Vial ONE (13:10)
[2022-04-29] MEDS ORDERED: NEOSTIGMINE 3 MG/3 ML SYR 3 MG/3 ML SYRINGE ONE (13:10)
[2022-04-29] MEDS ORDERED: Rocuronium Bromide 10 MG/ML (10ML VIAL) ONE (13:10)
[2022-04-29] MEDS ORDERED: Lidocaine 1% PF 5 ML VIAL ONE (13:10)
[2022-04-29] MEDS ORDERED: Glycopyrrolate 0.2 MG/ML 5 ML SYRINGE ONE (13:10)
[2022-04-29] MEDS ORDERED: Sodium Chloride 0.9% 1,000 ML IV SCH (14:30)
[2022-04-29] MEDS ORDERED: Fentanyl 100 MCG/2 ML VIAL ONE (14:34)
[2022-04-29] MEDS ORDERED: Promethazine HCl 25 MG/ML VIAL IM/IV PRN (15:45)
[2022-04-29] MEDS ORDERED: Ondansetron HCl/PF 4 MG/2 ML Vial IVP PRN (15:45)
[2022-04-29] MEDS: Atorvastatin Calcium 40 MG TAB PO SCH (21:44)
[2022-04-29] MEDS: Meropenem 500 MG in Sodium Chloride 0.9% 100 ML IVPB SCH (23:00)
[2022-04-30 04:55] LABS: #Eosinphils 0.1 thou/uL (0.0-0.7); #Lymphocytes 0.9 thou/uL (1.20-3.40); #Monocytes 0.8 thou/uL (0.11-0.59); #Neutrophils 12.1 thou/uL (1.40-6.50); %Basophils 0.3 % (0.0-1.0); %Eosinophils 0.5 % (0.0-10.0); %Lymphocytes 6.4 % (21.0-51.0); %Neutrophils 86.7 % (42.0-75.0); Hemoglobin 6.9 g/dL (12.0-16.0); Mean Corpuscular HGB CONC 32.4 g/dL (32.0-36.0); Mean Corpuscular Hemoglobin 34.1 pg (27.0-31.0); Mean Platelet Volume 8.2 fL (7.4-10.4); Platelet Count 131 10x3/uL (130-400); RBC Distribution Width 13.1 % (11.5-14.5); Red Blood Cell (RBC) Count 2.03 mill/uL (4.20-5.40); White Blood Cell (WBC) Count 13.9 10x3/uL (4.8-10.8)
[2022-04-30 05:42] LABS: Anion Gap 14 mmol/L (10-20); BUN (Urea Nitrogen) 26 mg/dL (9.8-20.1); Calc. Creatinine Clearance 14 mL/min (70-130); Calcium 7.7 mg/dL (7.8-10.44); Carbon Dioxide 25 mmol/L (23-31); Chloride 98 mmol/L (98-107); Estimated GFR 13; Glucose 173 mg/dL (80-115); Potassium 3.7 mmol/L (3.5-5.1); Sodium 133 mmol/L (136-145)
[2022-04-30] MEDS: HumaLOG 300 UNITS/3 ML VIAL SC PRN ×2 (06:37→20:54)
[2022-04-30] MEDS: Morphine 4 MG/ML VIAL SLOW IVP PRN (07:10)
[2022-04-30] MEDS ORDERED: Fentanyl 100 MCG/2 ML VIAL SLOW IVP SCH (08:15)
[2022-04-30] MEDS ORDERED: Heparin 10,000 UNITS/ 10 ML VIAL ONE (08:29)
[2022-04-30] MEDS: NIFEdipine XL 30 MG TAB PO SCH (08:36)
[2022-04-30] MEDS: Aspirin 81 mg Enteric Coated Tablet PO SCH (08:36)
[2022-04-30] MEDS: Losartan 25 MG TAB PO SCH (08:36)
[2022-04-30] MEDS: Gabapentin 300 MG CAP PO SCH (08:36)
[2022-04-30] MEDS ORDERED: Morphine 4 MG/ML VIAL SLOW IVP PRN ×2 (10:30→10:31)
[2022-04-30] MEDS ORDERED: traMADol HCl 50 MG TAB PO PRN (10:36)
[2022-04-30] MEDS ORDERED: Fentanyl 100 MCG/2 ML VIAL SLOW IVP PRN (10:38)
[2022-04-30] MEDS ORDERED: Acetaminophen 500 MG TAB PO SCH (11:30)
[2022-04-30] MEDS: traMADol HCl 50 MG TAB PO PRN (11:54)
[2022-04-30 14:24] VITALS: BMI 18.5
[2022-04-30] MEDS: HYDROcodone/Acetaminophen 5/325 mg Tablet PO PRN ×2 (16:17→20:53)
[2022-04-30] MEDS: Atorvastatin Calcium 40 MG TAB PO SCH (20:53)
[2022-05-01 05:05] LABS: #Eosinphils 0.1 thou/uL (0.0-0.7); #Lymphocytes 0.9 thou/uL (1.20-3.40); #Monocytes 0.9 thou/uL (0.11-0.59); #Neutrophils 14.5 thou/uL (1.40-6.50); %Basophils 0.3 % (0.0-1.0); %Eosinophils 0.6 % (0.0-10.0); %Lymphocytes 5.7 % (21.0-51.0); %Monocytes 5.7 % (0.0-10.0); %Neutrophils 87.7 % (42.0-75.0); Hemoglobin 8.5 g/dL (12.0-16.0); Mean Corpuscular HGB CONC 32.8 g/dL (32.0-36.0); Mean Corpuscular Hemoglobin 33.4 pg (27.0-31.0); Mean Platelet Volume 8.4 fL (7.4-10.4); Platelet Count 141 10x3/uL (130-400); RBC Distribution Width 15.3 % (11.5-14.5); Red Blood Cell (RBC) Count 2.54 mill/uL (4.20-5.40); White Blood Cell (WBC) Count 16.5 10x3/uL (4.8-10.8)
[2022-05-01 05:23] LABS: Anion Gap 13 mmol/L (10-20); BUN (Urea Nitrogen) 18 mg/dL (9.8-20.1); Calc. Creatinine Clearance 16 mL/min (70-130); Carbon Dioxide 27 mmol/L (23-31); Chloride 97 mmol/L (98-107); Estimated GFR 16; Glucose 149 mg/dL (80-115); Potassium 3.5 mmol/L (3.5-5.1); Sodium 133 mmol/L (136-145)
[2022-05-01] MEDS: Ondansetron PF 4 MG/2 ML Vial IVP PRN (05:24)
[2022-05-01] MEDS: HumaLOG 300 UNITS/3 ML VIAL SC PRN (05:44)
[2022-05-01] MEDS: Losartan 25 MG TAB PO SCH (10:04)
[2022-05-01] MEDS: Aspirin 81 mg Enteric Coated Tablet PO SCH (10:04)
[2022-05-01] MEDS: Gabapentin 300 MG CAP PO SCH (10:04)
[2022-05-01] MEDS: NIFEdipine XL 30 MG TAB PO SCH (10:07)
[2022-05-01] MEDS: HYDROcodone/Acetaminophen 5/325 mg Tablet PO PRN (16:28)
[2022-05-01] MEDS: Atorvastatin Calcium 40 MG TAB PO SCH (20:55)
[2022-05-01] MEDS: Heparin 5,000 UNITS/ML VIAL SC SCH (20:56)
[2022-05-01] MEDS: traMADol HCl 50 MG TAB PO PRN (20:57)
[2022-05-02] MEDS: HumaLOG 300 UNITS/3 ML VIAL SC PRN (05:45)
[2022-05-02] MEDS: Gabapentin 300 MG CAP PO SCH (10:40)
[2022-05-02] MEDS: Aspirin 81 mg Enteric Coated Tablet PO SCH (10:41)
[2022-05-02] MEDS: Heparin 5,000 UNITS/ML VIAL SC SCH ×2 (10:41→20:18)
[2022-05-02] MEDS: Insulin Glargine 30 UNITS/0.3 ML VIAL SC SCH (10:41)
[2022-05-02] MEDS: Losartan 25 MG TAB PO SCH (10:44)
[2022-05-02] MEDS ORDERED: traMADol HCl 50 MG TAB PO PRN (14:21)
[2022-05-02] MEDS: Acetaminophen 500 MG TAB PO PRN ×2 (14:27→20:18)
[2022-05-02] MEDS ORDERED: Triple Antibiotic Oint 1 GM Packet TOP SCH (16:00)
[2022-05-02] MEDS: Atorvastatin Calcium 40 MG TAB PO SCH (20:18)
[2022-05-03 07:31] LABS: #Eosinphils 0.1 thou/uL (0.0-0.7); #Lymphocytes 1.2 thou/uL (1.20-3.40); #Monocytes 0.8 thou/uL (0.11-0.59); #Neutrophils 11.5 thou/uL (1.40-6.50); %Basophils 0.3 % (0.0-1.0); %Eosinophils 0.7 % (0.0-10.0); %Lymphocytes 8.7 % (21.0-51.0); %Monocytes 5.8 % (0.0-10.0); %Neutrophils 84.6 % (42.0-75.0); Hemoglobin 8.1 g/dL (12.0-16.0); Mean Corpuscular HGB CONC 31.8 g/dL (32.0-36.0); Mean Corpuscular Hemoglobin 32.3 pg (27.0-31.0); Mean Platelet Volume 8.4 fL (7.4-10.4); Platelet Count 192 10x3/uL (130-400); RBC Distribution Width 14.7 % (11.5-14.5); White Blood Cell (WBC) Count 13.5 10x3/uL (4.8-10.8)
[2022-05-03] MEDS ORDERED: Heparin 10,000 UNITS/ 10 ML VIAL ONE (08:33)
[2022-05-03] MEDS ORDERED: Triple Antibiotic Oint 1 GM Packet TOP SCH (09:00)
[2022-05-03] MEDS: Aspirin 81 mg Enteric Coated Tablet PO SCH (16:13)
[2022-05-03] MEDS: Losartan 25 MG TAB PO SCH (16:14)
[2022-05-03] MEDS: Insulin Glargine 30 UNITS/0.3 ML VIAL SC SCH (16:14)
[2022-05-03] MEDS: Heparin 5,000 UNITS/ML VIAL SC SCH (16:14)
[2022-05-03] MEDS: Gabapentin 300 MG CAP PO SCH (16:15)
[2022-05-03] MEDS: HYDROcodone/Acetaminophen 5/325 mg Tablet PO PRN (16:17)
[2022-05-03 16:34] VITALS: BP 126/69; TEMP 97.6
== END 2022-05-03 17:09 | DRG 853 ==
LOC: ERS 09:15 → 2NO 11:15 → T4-B 05-01 14:53
PROVIDERS: ADMIT Internal Medicine; ATTEND Internal Medicine
PROC: 3E03329 Introduction of Other Anti-infective into Peripheral Vein, Percutaneous Approach (ICD-10-PCS; 2022-04-25)
PROC: 5A1D70Z Performance of Urinary Filtration, Intermittent, Less than 6 Hours Per Day (ICD-10-PCS; 2022-04-26)
PROC: B40D1ZZ Plain Radiography of Aorta and Bilateral Lower Extremity Arteries using Low Osmolar Contrast (ICD-10-PCS; principal; 2022-04-28)
PROC: 0Y6J0Z1 Detachment at Left Lower Leg, High, Open Approach (ICD-10-PCS; 2022-04-29)
PROC: 30233N1 Transfusion of Nonautologous Red Blood Cells into Peripheral Vein, Percutaneous Approach (ICD-10-PCS; 2022-04-30)
DX: A41.9 Sepsis, unspecified organism (principal); N18.6 End stage renal disease; I69.351 Hemiplegia and hemiparesis following cerebral infarction affecting right dominant side; I12.0 Hypertensive chronic kidney disease with stage 5 chronic kidney disease or end stage renal disease; N39.0 Urinary tract infection, site not specified; E87.1 Hypo-osmolality and hyponatremia; E11.52 Type 2 diabetes mellitus with diabetic peripheral angiopathy with gangrene; M86.8X7 Other osteomyelitis, ankle and foot; I42.9 Cardiomyopathy, unspecified; Z20.822 Contact with and (suspected) exposure to COVID-19; E78.00 Pure hypercholesterolemia, unspecified; R79.89 Other specified abnormal findings of blood chemistry; E11.22 Type 2 diabetes mellitus with diabetic chronic kidney disease; G89.29 Other chronic pain; E11.621 Type 2 diabetes mellitus with foot ulcer; L97.529 Non-pressure chronic ulcer of other part of left foot with unspecified severity; E11.69 Type 2 diabetes mellitus with other specified complication; D63.1 Anemia in chronic kidney disease; B96.1 Klebsiella pneumoniae [K. pneumoniae] as the cause of diseases classified elsewhere; I65.02 Occlusion and stenosis of left vertebral artery; I65.22 Occlusion and stenosis of left carotid artery; Z99.2 Dependence on renal dialysis; Z89.421 Acquired absence of other right toe(s); Z88.8 Allergy status to other drugs, medicaments and biological substances; Z88.1 Allergy status to other antibiotic agents; Z79.82 Long term (current) use of aspirin; Z79.899 Other long term (current) drug therapy; Z79.4 Long term (current) use of insulin; Z82.49 Family history of ischemic heart disease and other diseases of the circulatory system; Z83.3 Family history of diabetes mellitus; Z87.891 Personal history of nicotine dependence; Z89.411 Acquired absence of right great toe; Z91.14 Patient's other noncompliance with medication regimen
CPT/HCPCS: 36245; 36246; 36247; 36415; 36416; 36430; 36600; 70450; 70496; 70498; 70551; 71045; 75635; 75710; 75736; 75774; 80048; 80053; 80061; 80202; 81003; 81015; 82553; 82805; 83036; 83605; 83735; 83880; 83970; 84100; 84443; 84484; 85025; 85610; 85652; 85730; 86140; 86704; 86850; 86900; 86901; 87040; 87077; 87086; 87186; 87811; 88307; 90935; 93005; 93306; 93923; 96365; 96366; 97139; 99152; C1769; C1887; G0257; J0696; J1644; J1815; J1956; J2001; J2185; J2250; J2270; J2405; J3010; J3370; J3370-JW; J3490; J7050; P9016; Q0162; Q4081; Q9967; U0003; U0005

== ENCOUNTER 2022-05-05 16:14 | Inpatient (IN) | payer MEDICARE, MEDICAID ==
[~2022-05-05 16:14] MED LIST: Iopamidol-370 76% 500 ML 1 ML ONE
[2022-05-05] MEDS ORDERED: Dextrose 50% Abboject 50 ML SYRINGE ONE ×2 (16:42→16:45)
[2022-05-05 17:47] LABS: Hemoglobin 9.7 g/dL (12.0-16.0); Mean Corpuscular HGB CONC 31.5 g/dL (32.0-36.0); Mean Corpuscular Hemoglobin 31.7 pg (27.0-31.0); Mean Platelet Volume 8.1 fL (7.4-10.4); Platelet Count 230 10x3/uL (130-400); RBC Distribution Width 15.1 % (11.5-14.5); Red Blood Cell (RBC) Count 3.07 mill/uL (4.20-5.40); White Blood Cell (WBC) Count 7.8 10x3/uL (4.8-10.8)
[2022-05-05 18:07] LABS: Anisocytosis SLIGHT = 6-15 cells (100X) (0-5/hpf); Band 39 % (5-11); Lymphocytes 1 % (21-51); MDiff Complete? YES; Macrocytosis SLIGHT = 6-15 cells (100X) (0-5/hpf); Metamyelocyte 3 % (0-0); Monocytes 6 % (0-10); Neutrophil 51 % (42-75); Platelet Morphology Comment Appears Adequate; Polychromasia SLIGHT = 2-3 cells (100X) (0-2/hpf); Vacuoles SLIGHT
[2022-05-05 18:08] LABS: ALT (SGPT) Less than 7 U/L (8-55); AST (SGOT) 23 U/L (5-34); Albumin 2.3 g/dL (3.4-4.8); Alkaline Phosphatase 59 U/L (40-110); Anion Gap 14 mmol/L (10-20); BUN (Urea Nitrogen) 30 mg/dL (9.8-20.1); Bilirubin, Total 0.4 mg/dL (0.2-1.2); Calc. Creatinine Clearance 0 mL/min (70-130); Calcium 8.1 mg/dL (7.8-10.44); Carbon Dioxide 26 mmol/L (23-31); Chloride 95 mmol/L (98-107); Estimated GFR 11; Globulin 3.2 g/dL (2.4-3.5); Glucose 169 mg/dL (80-115); Lipase 9 U/L (8-78); Magnesium 1.7 mg/dL (1.6-2.6); Potassium 3.8 mmol/L (3.5-5.1); Protein, Total 5.5 g/dL (5.8-8.1); Sodium 131 mmol/L (136-145)
[2022-05-05 18:29] LABS: CKMB 4.2 ng/mL (0-6.6)
[2022-05-05] MEDS ORDERED: Meropenem 1 GM in Sodium Chloride 0.9% 100 ML SLOW IVP SCH (18:30)
[2022-05-05] MEDS ORDERED: NOREPINEPHRINE 8 MG/250 ML-D5W 250 ML ONE (18:48)
[2022-05-05] MEDS ORDERED: Midazolam HCl 2 mg/2 ml Vial ONE (18:50)
[2022-05-05 21:02] LABS: Lactic Acid 3.3 mmol/L (0.5-2.2)
[2022-05-05 21:46] LABS: SARS-CoV-2 NAA Rapid Test Not Detected (NotDetected)
[2022-05-05] MEDS ORDERED: Albumin 5% 500 ML ONE (21:54)
[2022-05-06] MEDS ORDERED: Midazolam HCl 2 mg/2 ml Vial ONE (00:40)
[2022-05-06] MEDS ORDERED: Midazolam HCl 2 mg/2 ml Vial SLOW IVP PRN (01:13)
[2022-05-06] MEDS ORDERED: Propofol BOLUS 1,000 MG/100 ML VIAL IV PRN (01:15)
[2022-05-06] MEDS ORDERED: Morphine 4 MG/ML VIAL SLOW IVP PRN (01:15)
[2022-05-06] MEDS ORDERED: Fentanyl CADD 100 ML IV SCH (01:15)
[2022-05-06] MEDS ORDERED: Propofol 1,000 MG/100 ML VIAL IV PRN (01:15)
[2022-05-06] MEDS ORDERED: Ventilator Sedation Protocol 1 EACH FS SCH (01:15)
[2022-05-06 01:26] LABS: Actual Bicarbonate (HCO3a) 23.2 mEq/L (22-28); Analyzer IN Cardio ER; Base Excess (BEa) -0.6 mEq/L (-2.0 to +3.0); Calcium, Ionized (arterial) 1.06 mmol/L (1.12-1.30); Carboxyhemoglobin (COHb) 0.2 gm% (0.0-3.0); Hemoglobin (Hb) 10.1 g/dL (12.0-16.0); O2 Tension (PaO2), arterial 206.7 mmHg (> 80.0); Potassium - ABG Lab 3.77 mmol/L (3.70-5.30); pH, Arterial 7.44 (7.35-7.45)
[2022-05-06] MEDS ORDERED: Dextrose 50% Abboject 50 ML SYRINGE ONE (01:30)
[2022-05-06 01:32] LABS: Puncture Site Arterial Line
[2022-05-06] MEDS ORDERED: Dextrose 50% Abboject 50 ML SYRINGE SLOW IVP PRN (01:34)
[2022-05-06] MEDS ORDERED: Dextrose 5% in Water 1,000 ML IV PRN (01:34)
[2022-05-06 04:32] LABS: ALT (SGPT) 8 U/L (8-55); AST (SGOT) 32 U/L (5-34); Albumin 2.4 g/dL (3.4-4.8); Alkaline Phosphatase 46 U/L (40-110); Anion Gap 14 mmol/L (10-20); BUN (Urea Nitrogen) 31 mg/dL (9.8-20.1); Bilirubin, Total 0.5 mg/dL (0.2-1.2); Calc. Creatinine Clearance 14 mL/min (70-130); Calcium 7.8 mg/dL (7.8-10.44); Carbon Dioxide 21 mmol/L (23-31); Chloride 99 mmol/L (98-107); Estimated GFR 12; Globulin 2.8 g/dL (2.4-3.5); Glucose 124 mg/dL (80-115); Potassium 3.8 mmol/L (3.5-5.1); Protein, Total 5.2 g/dL (5.8-8.1); Sodium 130 mmol/L (136-145)
[2022-05-06 04:34] LABS: Hemoglobin 9.3 g/dL (12.0-16.0); Mean Corpuscular HGB CONC 32.5 g/dL (32.0-36.0); Mean Corpuscular Hemoglobin 33.2 pg (27.0-31.0); Mean Platelet Volume 8.3 fL (7.4-10.4); Platelet Count 249 10x3/uL (130-400); RBC Distribution Width 15.3 % (11.5-14.5); White Blood Cell (WBC) Count 18.4 10x3/uL (4.8-10.8)
[2022-05-06 05:48] LABS: Band 45 % (5-11); Hypochromia SLIGHT = 6-15 cells (100X) (0-5/hpf); Lymphocytes 3 % (21-51); MDiff Complete? YES; Macrocytosis SLIGHT = 6-15 cells (100X) (0-5/hpf); Monocytes 9 % (0-10); Neutrophil 43 % (42-75); Platelet Morphology Comment Appears Adequate
[2022-05-06 08:54] LABS: Troponin I 0.117 ng/mL (< 0.028)
[2022-05-06] MEDS ORDERED: FLU VACC QS2022-23(6MOS UP)/PF 60 MCG/0.5 ML SYRINGE IM ONE (09:00)
[2022-05-06] MEDS: Heparin 5,000 UNITS/ML VIAL SC SCH ×3 (09:22→20:41)
[2022-05-06] MEDS: Pantoprazole 40 MG VIAL IVP SCH (09:22)
[2022-05-06] MEDS ORDERED: Epoetin (ESRD) 20,000 UNITS/ML SC SCH (09:30)
[2022-05-06] MEDS: Epoetin (ESRD) 10,000 UNITS/ML VIAL SC SCH (11:34)
[2022-05-06] MEDS: Albumin 25% 25 GM/100 ML BOT IVPB SCH ×3 (11:34→23:01)
[2022-05-06] MEDS: NOREPINEPHRINE 8 MG/250 ML-D5W 250 ML IVPB PRN (15:24)
[2022-05-06] MEDS: Meropenem 500 MG in Sodium Chloride 0.9% 100 ML IVPB SCH (20:40)
[2022-05-06] MEDS ORDERED: Rocuronium Bromide 10 MG/ML (10ML VIAL) ONE (22:36)
[2022-05-06] MEDS ORDERED: Succinylcholine Chloride 100 MG/5 ML SYRINGE FS ONE (22:36)
[2022-05-07 04:02] LABS: ALT (SGPT) Less than 7 U/L (8-55); AST (SGOT) 18 U/L (5-34); Albumin 3.2 g/dL (3.4-4.8); Alkaline Phosphatase 51 U/L (40-110); Anion Gap 19 mmol/L (10-20); BUN (Urea Nitrogen) 36 mg/dL (9.8-20.1); Bilirubin, Total 0.6 mg/dL (0.2-1.2); Calc. Creatinine Clearance 12 mL/min (70-130); Calcium 8.4 mg/dL (7.8-10.44); Carbon Dioxide 20 mmol/L (23-31); Chloride 97 mmol/L (98-107); Estimated GFR 10; Globulin 2.2 g/dL (2.4-3.5); Glucose 110 mg/dL (80-115); Potassium 4.8 mmol/L (3.5-5.1); Protein, Total 5.4 g/dL (5.8-8.1); Sodium 131 mmol/L (136-145)
[2022-05-07] MEDS: Albumin 25% 25 GM/100 ML BOT IVPB SCH ×4 (06:11→23:50)
[2022-05-07] MEDS ORDERED: Acetaminophen 650 MG/20.3 ML UDCUP PER TUBE PRN (07:37)
[2022-05-07] MEDS: Heparin 5,000 UNITS/ML VIAL SC SCH ×3 (08:07→23:33)
[2022-05-07] MEDS: Pantoprazole 40 MG VIAL IVP SCH (08:07)
[2022-05-07] MEDS: Fentanyl 100 MCG/2 ML VIAL SLOW IVP PRN ×2 (08:22→13:42)
[2022-05-07] MEDS ORDERED: Sodium Chloride 0.9% 1,000 ML IV SCH ×2 (09:15)
[2022-05-07] MEDS ORDERED: Heparin 10,000 UNITS/ 10 ML VIAL CATH SCH (10:00)
[2022-05-07] MEDS: Lactated Ringer's 1,000 ML IV SCH ×3 (10:18→23:34)
[2022-05-07] MEDS ORDERED: Fluconazole In NaCl,Iso-Osm 100 MG in Admixture Fee 2 EACH IVPB SCH (10:30)
[2022-05-07] MEDS ORDERED: Electrolyte Replacement Protocol 1 EACH FS SCH (12:00)
[2022-05-07] MEDS ORDERED: Heparin 10,000 UNITS/ 10 ML VIAL ONE (13:55)
[2022-05-07] MEDS ORDERED: Lactated Ringer's 500 ML IV SCH (14:15)
[2022-05-07] MEDS ORDERED: Bacitracin 1 PK TOP SCH (15:00)
[2022-05-07] MEDS: NOREPINEPHRINE 8 MG/250 ML-D5W 250 ML IVPB PRN (15:48)
[2022-05-07] MEDS: Meropenem 500 MG in Sodium Chloride 0.9% 100 ML IVPB SCH (23:57)
[2022-05-08] MEDS: Albumin 25% 25 GM/100 ML BOT IVPB SCH (05:18)
[2022-05-08] MEDS: Lactated Ringer's 1,000 ML IV SCH (05:19)
[2022-05-08] MEDS: Fentanyl 100 MCG/2 ML VIAL SLOW IVP PRN ×3 (05:30→14:53)
[2022-05-08 06:46] LABS: ALT (SGPT) Less than 7 U/L (8-55); AST (SGOT) 23 U/L (5-34); Albumin 3.6 g/dL (3.4-4.8); Alkaline Phosphatase 59 U/L (40-110); Anion Gap 17 mmol/L (10-20); BUN (Urea Nitrogen) 13 mg/dL (9.8-20.1); Bilirubin, Total 0.7 mg/dL (0.2-1.2); Calc. Creatinine Clearance 28 mL/min (70-130); Calcium 8.6 mg/dL (7.8-10.44); Carbon Dioxide 23 mmol/L (23-31); Chloride 101 mmol/L (98-107); Estimated GFR 28; Globulin 1.9 g/dL (2.4-3.5); Glucose 69 mg/dL (80-115); Potassium 3.5 mmol/L (3.5-5.1); Protein, Total 5.5 g/dL (5.8-8.1); Sodium 137 mmol/L (136-145)
[2022-05-08] MEDS: Dextrose 5%-Lactated Ringers 1,000 ML IV SCH ×2 (07:45→10:09)
[2022-05-08] MEDS: Pantoprazole 40 MG VIAL IVP SCH (08:41)
[2022-05-08] MEDS: Bacitracin 1 PK TOP SCH (08:41)
[2022-05-08] MEDS: Heparin 5,000 UNITS/ML VIAL SC SCH ×3 (08:41→20:08)
[2022-05-08] MEDS: Ipratropium/Albuterol 3 ML NEB NEB SCH ×3 (11:41→18:17)
[2022-05-08] MEDS: Meropenem 500 MG in Sodium Chloride 0.9% 100 ML IVPB SCH (14:40)
[2022-05-08] MEDS: Fluconazole In NaCl,Iso-Osm 100 MG in Admixture Fee 2 EACH IVPB SCH (17:04)
[2022-05-09] MEDS: Dextrose 5%-Lactated Ringers 1,000 ML IV SCH ×2 (01:15→08:27)
[2022-05-09] MEDS: Meropenem 500 MG in Sodium Chloride 0.9% 100 ML IVPB SCH ×3 (01:29→20:29)
[2022-05-09] MEDS: Fentanyl 100 MCG/2 ML VIAL SLOW IVP PRN ×2 (01:38→08:26)
[2022-05-09 04:24] LABS: Anion Gap 21 mmol/L (10-20); BUN (Urea Nitrogen) 19 mg/dL (9.8-20.1); Calc. Creatinine Clearance 19 mL/min (70-130); Calcium 8.8 mg/dL (7.8-10.44); Carbon Dioxide 20 mmol/L (23-31); Chloride 101 mmol/L (98-107); Estimated GFR 18; Glucose 190 mg/dL (80-115); Magnesium 1.8 mg/dL (1.6-2.6); Potassium 3.6 mmol/L (3.5-5.1); Sodium 138 mmol/L (136-145)
[2022-05-09 04:55] LABS: Anisocytosis SLIGHT = 6-15 cells (100X) (0-5/hpf); Band 14 % (5-11); Hemoglobin 6.2 g/dL (12.0-16.0); Lymphocytes 4 % (21-51); MDiff Complete? YES; Mean Corpuscular HGB CONC 31.2 g/dL (32.0-36.0); Mean Corpuscular Hemoglobin 31.9 pg (27.0-31.0); Mean Platelet Volume 9.7 fL (7.4-10.4); Monocytes 1 % (0-10); Neutrophil 81 % (42-75); Platelet Count 99 10x3/uL (130-400); Platelet Morphology Comment Appears Decreased; RBC Distribution Width 15.4 % (11.5-14.5); Red Blood Cell (RBC) Count 1.95 mill/uL (4.20-5.40); White Blood Cell (WBC) Count 17.1 10x3/uL (4.8-10.8)
[2022-05-09] MEDS: Ipratropium/Albuterol 3 ML NEB NEB SCH ×4 (06:48→18:24)
[2022-05-09 08:12] LABS: Iron 23 ug/dL (50-170)
[2022-05-09] MEDS: Heparin 5,000 UNITS/ML VIAL SC SCH ×3 (08:26→20:29)
[2022-05-09] MEDS: Pantoprazole 40 MG VIAL IVP SCH (08:26)
[2022-05-09] MEDS: Bacitracin 1 PK TOP SCH (08:27)
[2022-05-09 11:49] LABS: Iron Binding Capacity, Total 41 mcg/dL (265-497)
[2022-05-09] MEDS ORDERED: Acetaminophen 500 MG TAB PO PRN (13:20)
[2022-05-09] MEDS ORDERED: Acetaminophen 500 MG TAB PO SCH (13:30)
[2022-05-09] MEDS: traMADol HCl 50 MG TAB PO PRN (14:56)
[2022-05-09] MEDS: Fluconazole In NaCl,Iso-Osm 100 MG in Admixture Fee 2 EACH IVPB SCH (16:29)
[2022-05-09] MEDS: Insulin Regular 300 UNITS/3 ML VIAL SC PRN ×2 (16:31→20:29)
[2022-05-09 16:33] LABS: Hemoglobin 10.2 g/dL (12.0-16.0); Mean Corpuscular HGB CONC 33.4 g/dL (32.0-36.0); Mean Corpuscular Hemoglobin 32.4 pg (27.0-31.0); Mean Corpuscular Volume 97.1 fl (78.0-98.0); Mean Platelet Volume 10.2 fL (7.4-10.4); Platelet Count 83 10x3/uL (130-400); RBC Distribution Width 15.3 % (11.5-14.5); Red Blood Cell (RBC) Count 3.16 mill/uL (4.20-5.40); White Blood Cell (WBC) Count 21.9 10x3/uL (4.8-10.8)
[2022-05-09 16:58] LABS: Band 8 % (5-11); Helmet Cells SLIGHT = 2-5 cells (100X) (0-1/hpf); Lymphocytes 7 % (21-51); MDiff Complete? YES; Monocytes 5 % (0-10); Neutrophil 79 % (42-75); Platelet Morphology Comment Appears Decreased; Reactive Lymphocytes 1 % (0-10); Schistocytes SLIGHT = 2-5 cells (100X) (0-1/hpf)
[2022-05-09] MEDS: Atorvastatin Calcium 40 MG TAB PO SCH (20:29)
[2022-05-10 05:02] LABS: Hemoglobin 9.5 g/dL (12.0-16.0); Mean Corpuscular Hemoglobin 32.3 pg (27.0-31.0); Mean Corpuscular Volume 98.1 fl (78.0-98.0); Mean Platelet Volume 10.7 fL (7.4-10.4); Platelet Count 65 10x3/uL (130-400); RBC Distribution Width 15.5 % (11.5-14.5); Red Blood Cell (RBC) Count 2.93 mill/uL (4.20-5.40); White Blood Cell (WBC) Count 14.6 10x3/uL (4.8-10.8)
[2022-05-10 05:14] LABS: Phosphorus 3.3 mg/dL (2.3-4.7)
[2022-05-10 05:19] LABS: ALT (SGPT) 11 U/L (8-55); AST (SGOT) 40 U/L (5-34); Albumin 2.9 g/dL (3.4-4.8); Alkaline Phosphatase 68 U/L (40-110); Anion Gap 14 mmol/L (10-20); BUN (Urea Nitrogen) 25 mg/dL (9.8-20.1); Bilirubin, Total 0.7 mg/dL (0.2-1.2); Calc. Creatinine Clearance 16 mL/min (70-130); Calcium 8.7 mg/dL (7.8-10.44); Carbon Dioxide 24 mmol/L (23-31); Chloride 102 mmol/L (98-107); Estimated GFR 14; Globulin 2.3 g/dL (2.4-3.5); Glucose 206 mg/dL (80-115); Magnesium 1.7 mg/dL (1.6-2.6); Potassium 3.6 mmol/L (3.5-5.1); Protein, Total 5.2 g/dL (5.8-8.1); Sodium 136 mmol/L (136-145)
[2022-05-10] MEDS: Insulin Regular 300 UNITS/3 ML VIAL SC PRN (05:30)
[2022-05-10 05:37] LABS: Band 1 % (5-11); Lymphocytes 7 % (21-51); MDiff Complete? YES; Monocytes 6 % (0-10); Neutrophil 86 % (42-75); Platelet Morphology Comment Appears Decreased
[2022-05-10] MEDS: Dextrose 5%-Lactated Ringers 1,000 ML IV SCH ×2 (07:06→22:37)
[2022-05-10] MEDS: Ipratropium/Albuterol 3 ML NEB NEB SCH ×4 (07:25→18:36)
[2022-05-10] MEDS: Pantoprazole 40 MG VIAL IVP SCH (08:24)
[2022-05-10] MEDS: Heparin 5,000 UNITS/ML VIAL SC SCH ×3 (08:24→23:06)
[2022-05-10] MEDS: Bacitracin 1 PK TOP SCH (08:24)
[2022-05-10] MEDS ORDERED: Magnesium 2 GM/50 ML(in water) 2 GM in Premix Bag 1 BAG IVPB SCH (08:30)
[2022-05-10] MEDS ORDERED: Polyethylene Glycol 3350 17 GM Packet PO SCH (09:00)
[2022-05-10] MEDS ORDERED: Heparin 10,000 UNITS/ 10 ML VIAL ONE (10:11)
[2022-05-10] MEDS: traMADol HCl 50 MG TAB PO PRN (12:05)
[2022-05-10] MEDS: Albumin 25% 25 GM/100 ML BOT IVPB SCH ×3 (12:05→23:56)
[2022-05-10] MEDS: Fentanyl 100 MCG/2 ML VIAL SLOW IVP PRN ×2 (15:55→19:43)
[2022-05-10] MEDS ORDERED: Polyethylene Glycol 3350 17 GM Packet PO PRN (18:22)
[2022-05-10] MEDS: Meropenem 500 MG in Sodium Chloride 0.9% 100 ML IVPB SCH (20:00)
[2022-05-10] MEDS: Atorvastatin Calcium 40 MG TAB PO SCH (22:30)
[2022-05-10] MEDS: Polyethylene Glycol 3350 17 GM Packet PO SCH (23:05)
[2022-05-11] MEDS: traMADol HCl 50 MG TAB PO PRN (00:43)
[2022-05-11] MEDS: Albumin 25% 25 GM/100 ML BOT IVPB SCH ×3 (00:46→14:44)
[2022-05-11] MEDS: Fluconazole In NaCl,Iso-Osm 100 MG in Admixture Fee 2 EACH IVPB SCH ×2 (00:48→03:53)
[2022-05-11] MEDS: Fentanyl 100 MCG/2 ML VIAL SLOW IVP PRN ×6 (00:51→22:06)
[2022-05-11] MEDS ORDERED: Meropenem 500 MG in Sodium Chloride 0.9% 100 ML IVPB SCH (02:00)
[2022-05-11 06:27] LABS: Anion Gap 15 mmol/L (10-20); BUN (Urea Nitrogen) 17 mg/dL (9.8-20.1); Calc. Creatinine Clearance 23 mL/min (70-130); Calcium 8.8 mg/dL (7.8-10.44); Carbon Dioxide 26 mmol/L (23-31); Chloride 100 mmol/L (98-107); Estimated GFR 21; Glucose 204 mg/dL (80-115); Potassium 3.6 mmol/L (3.5-5.1); Sodium 137 mmol/L (136-145)
[2022-05-11] MEDS: Bacitracin 1 PK TOP SCH (07:49)
[2022-05-11] MEDS: Polyethylene Glycol 3350 17 GM Packet PO SCH ×2 (07:49→20:37)
[2022-05-11] MEDS: Pantoprazole 40 MG VIAL IVP SCH (07:49)
[2022-05-11] MEDS: Heparin 5,000 UNITS/ML VIAL SC SCH (07:49)
[2022-05-11] MEDS: Ipratropium/Albuterol 3 ML NEB NEB SCH ×4 (08:14→19:11)
[2022-05-11 08:16] LABS: Band 7 % (5-11); Eosinophils 3 % (0-10); Hemoglobin 9.3 g/dL (12.0-16.0); Lymphocytes 11 % (21-51); MDiff Complete? YES; Mean Corpuscular HGB CONC 32.8 g/dL (32.0-36.0); Mean Corpuscular Hemoglobin 32.2 pg (27.0-31.0); Mean Corpuscular Volume 98.2 fl (78.0-98.0); Mean Platelet Volume 11.4 fL (7.4-10.4); Monocytes 9 % (0-10); Neutrophil 69 % (42-75); Platelet Count 32 10x3/uL (130-400); Platelet Morphology Comment Appears Decreased; Polychromasia SLIGHT = 2-3 cells (100X) (0-2/hpf); RBC Distribution Width 15.4 % (11.5-14.5); Reactive Lymphocytes 1 % (0-10); Red Blood Cell (RBC) Count 2.88 mill/uL (4.20-5.40); White Blood Cell (WBC) Count 8.7 10x3/uL (4.8-10.8)
[2022-05-11] MEDS ORDERED: Carvedilol 6.25 MG TAB PO SCH (11:15)
[2022-05-11] MEDS ORDERED: Argatroban (Non -ESRD) 250 MG in Sodium Chloride 0.9% 250 ML 250 ML IVPB SCH (11:30)
[2022-05-11] MEDS ORDERED: Argatroban (ESRD) 250 MG in Sodium Chloride 0.9% 250 ML 250 ML IVPB SCH (11:45)
[2022-05-11 12:16] LABS: INR-International Normal Ratio 1.5; PTT 41.3 sec (22.9-36.1); Prothrombin Time 18.8 sec (12.0-14.7)
[2022-05-11] MEDS ORDERED: Iopamidol 300 61% 50 ML VIAL FS ONE (13:35)
[2022-05-11] MEDS: Carvedilol 6.25 MG TAB PO SCH (16:54)
[2022-05-11] MEDS: Dextrose 5%-Lactated Ringers 1,000 ML IV SCH (17:03)
[2022-05-11] MEDS: Atorvastatin Calcium 40 MG TAB PO SCH (20:43)
[2022-05-11] MEDS: Insulin Regular 300 UNITS/3 ML VIAL SC PRN (22:07)
[2022-05-11] MEDS: metroNIDAZOLE 500 MG in Premix Bag 1 BAG IVPB SCH (22:40)
[2022-05-11] MEDS: Ciprofloxacin Lactate/D5W 200 MG in Premix Bag 1 BAG IVPB SCH (22:40)
[2022-05-12] MEDS: Fluconazole In NaCl,Iso-Osm 100 MG in Admixture Fee 2 EACH IVPB SCH (00:52)
[2022-05-12] MEDS: Fentanyl 100 MCG/2 ML VIAL SLOW IVP PRN ×2 (02:35→08:11)
[2022-05-12] MEDS: metroNIDAZOLE 500 MG in Premix Bag 1 BAG IVPB SCH ×3 (05:34→22:15)
[2022-05-12] MEDS: Insulin Regular 300 UNITS/3 ML VIAL SC PRN ×2 (06:47→17:34)
[2022-05-12] MEDS: Polyethylene Glycol 3350 17 GM Packet PO SCH (08:04)
[2022-05-12] MEDS: Ipratropium/Albuterol 3 ML NEB NEB SCH ×4 (08:08→18:52)
[2022-05-12] MEDS: Pantoprazole 40 MG VIAL IVP SCH (08:10)
[2022-05-12] MEDS: Carvedilol 6.25 MG TAB PO SCH ×2 (08:10→17:34)
[2022-05-12] MEDS: Bacitracin 1 PK TOP SCH (08:11)
[2022-05-12 10:13] LABS: INR-International Normal Ratio 2.6; Prothrombin Time 28.6 sec (12.0-14.7)
[2022-05-12 10:14] LABS: PTT 92.6 sec (22.9-36.1)
[2022-05-12 10:21] LABS: Anion Gap 15 mmol/L (10-20); BUN (Urea Nitrogen) 23 mg/dL (9.8-20.1); Calc. Creatinine Clearance 19 mL/min (70-130); Calcium 8.8 mg/dL (7.8-10.44); Carbon Dioxide 25 mmol/L (23-31); Chloride 99 mmol/L (98-107); Estimated GFR 15; Glucose 249 mg/dL (80-115); Potassium 3.7 mmol/L (3.5-5.1); Sodium 135 mmol/L (136-145)
[2022-05-12 10:46] LABS: Band 16 % (5-11); Hemoglobin 9.8 g/dL (12.0-16.0); Lymphocytes 10 % (21-51); MDiff Complete? YES; Mean Corpuscular HGB CONC 31.6 g/dL (32.0-36.0); Mean Corpuscular Hemoglobin 31.5 pg (27.0-31.0); Mean Corpuscular Volume 99.6 fl (78.0-98.0); Mean Platelet Volume 12.7 fL (7.4-10.4); Monocytes 4 % (0-10); Neutrophil 70 % (42-75); Platelet Count 38 10x3/uL (130-400); Platelet Morphology Comment Appears Decreased; Polychromasia SLIGHT = 2-3 cells (100X) (0-2/hpf); RBC Distribution Width 15.3 % (11.5-14.5)
[2022-05-12] MEDS ORDERED: Heparin 10,000 UNITS/ 10 ML VIAL ONE ×3 (11:10→14:26)
[2022-05-12] MEDS ORDERED: Lidocaine 2% PF 5 ML VIAL ONE (12:29)
[2022-05-12] MEDS ORDERED: Bupivacaine HCl 0.5%/Epinephrine 1:200,000/PF 30 ml Vial ONE (12:29)
[2022-05-12] MEDS ORDERED: fentaNYL PF 100 MCG/2 ML SYRINGE ONE (12:31)
[2022-05-12] MEDS ORDERED: Norepinephrine 4 MG/4 ML VIAL ONE (12:31)
[2022-05-12] MEDS ORDERED: Midazolam HCl 2 mg/2 ml Vial ONE (12:40)
[2022-05-12] MEDS ORDERED: Rocuronium Bromide 10 MG/ML (10ML VIAL) ONE (13:12)
[2022-05-12] MEDS ORDERED: Ondansetron PF 4 MG/2 ML Vial ONE (13:12)
[2022-05-12] MEDS: Dextrose 5%-Lactated Ringers 1,000 ML IV SCH (13:16)
[2022-05-12] MEDS ORDERED: SUGAMMADEX SODIUM 200 MG/2 ML VIAL ONE (14:25)
[2022-05-12] MEDS: Gabapentin 300 MG CAP PO SCH (21:00)
[2022-05-12] MEDS: Atorvastatin Calcium 40 MG TAB PO SCH (22:14)
[2022-05-12] MEDS: traMADol HCl 50 MG TAB PO PRN (22:18)
[2022-05-12] MEDS: Ciprofloxacin Lactate/D5W 200 MG in Premix Bag 1 BAG IVPB SCH (22:58)
[2022-05-13] MEDS: Polyethylene Glycol 3350 17 GM Packet PO SCH ×3 (01:16→21:27)
[2022-05-13] MEDS: Fluconazole In NaCl,Iso-Osm 100 MG in Admixture Fee 2 EACH IVPB SCH (01:52)
[2022-05-13] MEDS: Fentanyl 100 MCG/2 ML VIAL SLOW IVP PRN ×4 (04:29→22:26)
[2022-05-13 05:08] LABS: #Eosinphils 0.1 thou/uL (0.0-0.7); #Lymphocytes 0.8 thou/uL (1.20-3.40); #Monocytes 0.6 thou/uL (0.11-0.59); #Neutrophils 11.6 thou/uL (1.40-6.50); %Basophils 0.1 % (0.0-1.0); %Lymphocytes 5.9 % (21.0-51.0); %Monocytes 4.3 % (0.0-10.0); %Neutrophils 88.6 % (42.0-75.0); Hemoglobin 7.5 g/dL (12.0-16.0); Mean Corpuscular HGB CONC 31.9 g/dL (32.0-36.0); Mean Corpuscular Hemoglobin 32.1 pg (27.0-31.0); Mean Platelet Volume 12.7 fL (7.4-10.4); Platelet Count 34 10x3/uL (130-400); RBC Distribution Width 15.2 % (11.5-14.5); Red Blood Cell (RBC) Count 2.34 mill/uL (4.20-5.40); White Blood Cell (WBC) Count 13.1 10x3/uL (4.8-10.8)
[2022-05-13 05:21] LABS: Anion Gap 12 mmol/L (10-20); BUN (Urea Nitrogen) 25 mg/dL (9.8-20.1); Calc. Creatinine Clearance 19 mL/min (70-130); Carbon Dioxide 27 mmol/L (23-31); Chloride 98 mmol/L (98-107); Estimated GFR 17; Glucose 229 mg/dL (80-115); Potassium 3.8 mmol/L (3.5-5.1); Sodium 133 mmol/L (136-145)
[2022-05-13 05:29] LABS: INR-International Normal Ratio 1.8; PTT 60.4 sec (22.9-36.1); Prothrombin Time 21.8 sec (12.0-14.7)
[2022-05-13] MEDS: metroNIDAZOLE 500 MG in Premix Bag 1 BAG IVPB SCH ×3 (06:09→21:31)
[2022-05-13] MEDS: Insulin Regular 300 UNITS/3 ML VIAL SC PRN ×2 (06:13→17:33)
[2022-05-13] MEDS: Gabapentin 300 MG CAP PO SCH (08:11)
[2022-05-13] MEDS: Carvedilol 6.25 MG TAB PO SCH ×2 (08:12→17:33)
[2022-05-13] MEDS: Dextrose 5%-Lactated Ringers 1,000 ML IV SCH (08:16)
[2022-05-13] MEDS: Bacitracin 1 PK TOP SCH (08:16)
[2022-05-13] MEDS: Ipratropium/Albuterol 3 ML NEB NEB SCH ×4 (08:17→18:32)
[2022-05-13 09:40] LABS: Actual Bicarbonate (HCO3a) 23.2 mEq/L (22-28); Analyzer IN Cardio OR; Base Excess (BEa) -0.9 mEq/L (-2.0 to +3.0); CO2 Tension 35.8 mmHg (35.0-45.0); Calcium, Ionized (arterial) 1.03 mmol/L (1.12-1.30); Carboxyhemoglobin (COHb) 1.7 gm% (0.0-3.0); Hemoglobin (Hb) 9.3 g/dL (12.0-16.0); O2 Tension (PaO2), arterial 496.4 mmHg (> 80.0); Potassium - ABG Lab 3.63 mmol/L (3.70-5.30); Puncture Site Arterial Line; pH, Arterial 7.43 (7.35-7.45)
[2022-05-13] MEDS: Epoetin (ESRD) 10,000 UNITS/ML VIAL SC SCH (09:58)
[2022-05-13] MEDS: Atorvastatin Calcium 40 MG TAB PO SCH (21:27)
[2022-05-13] MEDS: Ciprofloxacin Lactate/D5W 200 MG in Premix Bag 1 BAG IVPB SCH (21:27)
[2022-05-14] MEDS: Fentanyl 100 MCG/2 ML VIAL SLOW IVP PRN ×3 (02:18→17:27)
[2022-05-14] MEDS: Fluconazole In NaCl,Iso-Osm 100 MG in Admixture Fee 2 EACH IVPB SCH (02:19)
[2022-05-14] MEDS: Dextrose 5%-Lactated Ringers 1,000 ML IV SCH (05:03)
[2022-05-14] MEDS: metroNIDAZOLE 500 MG in Premix Bag 1 BAG IVPB SCH (05:24)
[2022-05-14 06:03] LABS: #Eosinphils 0.1 thou/uL (0.0-0.7); #Lymphocytes 0.8 thou/uL (1.20-3.40); #Monocytes 0.7 thou/uL (0.11-0.59); #Neutrophils 13.1 thou/uL (1.40-6.50); %Basophils 0.1 % (0.0-1.0); %Eosinophils 0.9 % (0.0-10.0); %Lymphocytes 5.1 % (21.0-51.0); %Monocytes 4.5 % (0.0-10.0); %Neutrophils 89.4 % (42.0-75.0); Hemoglobin 7.7 g/dL (12.0-16.0); Mean Corpuscular HGB CONC 32.2 g/dL (32.0-36.0); Mean Corpuscular Hemoglobin 32.5 pg (27.0-31.0); Mean Platelet Volume 12.1 fL (7.4-10.4); Platelet Count 37 10x3/uL (130-400); Red Blood Cell (RBC) Count 2.36 mill/uL (4.20-5.40); White Blood Cell (WBC) Count 14.7 10x3/uL (4.8-10.8)
[2022-05-14 06:13] LABS: INR-International Normal Ratio 1.6; Prothrombin Time 20.1 sec (12.0-14.7)
[2022-05-14 06:14] LABS: PTT 46.2 sec (22.9-36.1)
[2022-05-14 06:24] LABS: Anion Gap 13 mmol/L (10-20); BUN (Urea Nitrogen) 29 mg/dL (9.8-20.1); Calc. Creatinine Clearance 17 mL/min (70-130); Calcium 8.4 mg/dL (7.8-10.44); Carbon Dioxide 24 mmol/L (23-31); Chloride 98 mmol/L (98-107); Estimated GFR 14; Glucose 153 mg/dL (80-115); Sodium 131 mmol/L (136-145)
[2022-05-14] MEDS ORDERED: Heparin 10,000 UNITS/ 10 ML VIAL ONE (08:58)
[2022-05-14] MEDS: Gabapentin 300 MG CAP PO SCH (10:00)
[2022-05-14] MEDS: Polyethylene Glycol 3350 17 GM Packet PO SCH ×2 (10:00→20:49)
[2022-05-14] MEDS: Carvedilol 6.25 MG TAB PO SCH ×2 (10:00→17:27)
[2022-05-14] MEDS: Bacitracin 1 PK TOP SCH (10:00)
[2022-05-14] MEDS: Ipratropium/Albuterol 3 ML NEB NEB SCH ×2 (11:16→14:24)
[2022-05-14] MEDS ORDERED: Argatroban (ESRD) 250 MG in Sodium Chloride 0.9% 250 ML 250 ML IVPB SCH (13:30)
[2022-05-14 14:40] LABS: Hemoglobin 9.4 g/dL (12.0-16.0); Mean Corpuscular HGB CONC 31.7 g/dL (32.0-36.0); Mean Corpuscular Hemoglobin 32.3 pg (27.0-31.0); Platelet Count 48 10x3/uL (130-400); RBC Distribution Width 15.3 % (11.5-14.5); Red Blood Cell (RBC) Count 2.92 mill/uL (4.20-5.40)
[2022-05-14 14:48] LABS: INR-International Normal Ratio 1.5; PTT 47.5 sec (22.9-36.1); Prothrombin Time 18.6 sec (12.0-14.7)
[2022-05-14 15:07] LABS: ALT (SGPT) Less than 7 U/L (8-55); AST (SGOT) 17 U/L (5-34); Albumin 2.6 g/dL (3.4-4.8); Alkaline Phosphatase 69 U/L (40-110); Bilirubin, Direct 0.2 mg/dL (0.1-0.3); Bilirubin, Total 0.6 mg/dL (0.2-1.2); Protein, Total 5.4 g/dL (5.8-8.1)
[2022-05-14] MEDS ORDERED: Ipratropium/Albuterol 3 ML NEB NEB PRN (15:13)
[2022-05-14] MEDS: Atorvastatin Calcium 40 MG TAB PO SCH (20:48)
[2022-05-14] MEDS: HYDROcodone/Acetaminophen 5/325 mg Tablet PO PRN (20:52)
[2022-05-15] MEDS: HYDROcodone/Acetaminophen 5/325 mg Tablet PO PRN ×3 (02:34→21:25)
[2022-05-15] MEDS: Dextrose 5%-Lactated Ringers 1,000 ML IV SCH ×2 (03:29→21:29)
[2022-05-15 06:04] LABS: #Eosinphils 0.1 thou/uL (0.0-0.7); #Lymphocytes 0.8 thou/uL (1.20-3.40); #Monocytes 0.9 thou/uL (0.11-0.59); #Neutrophils 13.8 thou/uL (1.40-6.50); %Eosinophils 0.5 % (0.0-10.0); %Monocytes 5.9 % (0.0-10.0); %Neutrophils 88.6 % (42.0-75.0); Hemoglobin 8.5 g/dL (12.0-16.0); Mean Corpuscular HGB CONC 31.9 g/dL (32.0-36.0); Mean Corpuscular Hemoglobin 32.4 pg (27.0-31.0); Mean Platelet Volume 10.8 fL (7.4-10.4); Platelet Count 58 10x3/uL (130-400); Red Blood Cell (RBC) Count 2.61 mill/uL (4.20-5.40); White Blood Cell (WBC) Count 15.5 10x3/uL (4.8-10.8)
[2022-05-15 06:21] LABS: Anion Gap 15 mmol/L (10-20); BUN (Urea Nitrogen) 28 mg/dL (9.8-20.1); Calc. Creatinine Clearance 21 mL/min (70-130); Calcium 8.1 mg/dL (7.8-10.44); Carbon Dioxide 23 mmol/L (23-31); Chloride 99 mmol/L (98-107); Estimated GFR 18; Glucose 159 mg/dL (80-115); Potassium 4.2 mmol/L (3.5-5.1); Sodium 133 mmol/L (136-145)
[2022-05-15] MEDS: Gabapentin 300 MG CAP PO SCH (08:39)
[2022-05-15] MEDS: Carvedilol 6.25 MG TAB PO SCH ×2 (08:40→16:52)
[2022-05-15] MEDS: Bacitracin 1 PK TOP SCH (08:41)
[2022-05-15] MEDS: Polyethylene Glycol 3350 17 GM Packet PO SCH ×2 (08:41→21:29)
[2022-05-15] MEDS: Insulin Regular 300 UNITS/3 ML VIAL SC PRN ×3 (11:59→22:36)
[2022-05-15] MEDS: Atorvastatin Calcium 40 MG TAB PO SCH (21:26)
[2022-05-16 05:03] LABS: #Eosinphils 0.1 thou/uL (0.0-0.7); #Lymphocytes 0.7 thou/uL (1.20-3.40); #Monocytes 1.1 thou/uL (0.11-0.59); #Neutrophils 11.7 thou/uL (1.40-6.50); %Basophils 0.2 % (0.0-1.0); %Eosinophils 0.4 % (0.0-10.0); %Monocytes 7.9 % (0.0-10.0); %Neutrophils 86.5 % (42.0-75.0); Hemoglobin 7.9 g/dL (12.0-16.0); Mean Corpuscular HGB CONC 32.8 g/dL (32.0-36.0); Mean Corpuscular Hemoglobin 33.1 pg (27.0-31.0); Mean Platelet Volume 10.4 fL (7.4-10.4); Platelet Count 71 10x3/uL (130-400); RBC Distribution Width 14.5 % (11.5-14.5); Red Blood Cell (RBC) Count 2.37 mill/uL (4.20-5.40); White Blood Cell (WBC) Count 13.5 10x3/uL (4.8-10.8)
[2022-05-16 05:17] LABS: Anion Gap 12 mmol/L (10-20); BUN (Urea Nitrogen) 41 mg/dL (9.8-20.1); Calc. Creatinine Clearance 17 mL/min (70-130); Calcium 8.1 mg/dL (7.8-10.44); Carbon Dioxide 26 mmol/L (23-31); Chloride 96 mmol/L (98-107); Estimated GFR 15; Glucose 249 mg/dL (80-115); Potassium 4.2 mmol/L (3.5-5.1); Sodium 130 mmol/L (136-145)
[2022-05-16] MEDS: Insulin Regular 300 UNITS/3 ML VIAL SC PRN ×2 (05:51→21:21)
[2022-05-16] MEDS: Carvedilol 6.25 MG TAB PO SCH ×2 (08:03→16:33)
[2022-05-16] MEDS: Polyethylene Glycol 3350 17 GM Packet PO SCH ×2 (08:03→21:21)
[2022-05-16] MEDS: Bacitracin 1 PK TOP SCH (08:03)
[2022-05-16] MEDS: Gabapentin 300 MG CAP PO SCH ×2 (08:03→08:04)
[2022-05-16] MEDS: HYDROcodone/Acetaminophen 5/325 mg Tablet PO PRN ×2 (08:07→16:33)
[2022-05-16] MEDS: Dextrose 5%-Lactated Ringers 1,000 ML IV SCH (16:36)
[2022-05-16] MEDS: Atorvastatin Calcium 40 MG TAB PO SCH (21:20)
[2022-05-16] MEDS: Heparin 5,000 UNITS/ML VIAL SC SCH (21:47)
[2022-05-17 05:21] LABS: #Eosinphils 0.1 thou/uL (0.0-0.7); #Lymphocytes 0.6 thou/uL (1.20-3.40); #Monocytes 0.9 thou/uL (0.11-0.59); #Neutrophils 8.9 thou/uL (1.40-6.50); %Basophils 0.3 % (0.0-1.0); %Eosinophils 0.8 % (0.0-10.0); %Monocytes 8.8 % (0.0-10.0); %Neutrophils 84.2 % (42.0-75.0); Hemoglobin 7.7 g/dL (12.0-16.0); Mean Corpuscular Hemoglobin 32.4 pg (27.0-31.0); Mean Platelet Volume 10.2 fL (7.4-10.4); Platelet Count 69 10x3/uL (130-400); RBC Distribution Width 14.7 % (11.5-14.5); Red Blood Cell (RBC) Count 2.36 mill/uL (4.20-5.40); White Blood Cell (WBC) Count 10.6 10x3/uL (4.8-10.8)
[2022-05-17 05:41] LABS: Anion Gap 13 mmol/L (10-20); BUN (Urea Nitrogen) 45 mg/dL (9.8-20.1); Calc. Creatinine Clearance 15 mL/min (70-130); Calcium 7.8 mg/dL (7.8-10.44); Carbon Dioxide 25 mmol/L (23-31); Chloride 97 mmol/L (98-107); Estimated GFR 13; Glucose 250 mg/dL (80-115); Potassium 4.3 mmol/L (3.5-5.1); Sodium 131 mmol/L (136-145)
[2022-05-17] MEDS: Insulin Regular 300 UNITS/3 ML VIAL SC PRN ×2 (06:16→19:01)
[2022-05-17] MEDS: Heparin 5,000 UNITS/ML VIAL SC SCH ×3 (08:44→22:13)
[2022-05-17] MEDS: Carvedilol 6.25 MG TAB PO SCH ×2 (08:44→18:17)
[2022-05-17] MEDS: Gabapentin 300 MG CAP PO SCH (08:45)
[2022-05-17] MEDS: Bacitracin 1 PK TOP SCH (08:45)
[2022-05-17] MEDS: Polyethylene Glycol 3350 17 GM Packet PO SCH ×2 (08:45→22:13)
[2022-05-17] MEDS ORDERED: Insulin Glargine 30 UNITS/0.3 ML VIAL SC SCH (09:00)
[2022-05-17] MEDS: Insulin Glargine 30 UNITS/0.3 ML VIAL SC SCH (10:02)
[2022-05-17] MEDS: HYDROcodone/Acetaminophen 5/325 mg Tablet PO PRN ×2 (15:19→22:15)
[2022-05-17] MEDS: Dextrose 5%-Lactated Ringers 1,000 ML IV SCH (15:20)
[2022-05-17] MEDS: Atorvastatin Calcium 40 MG TAB PO SCH (22:12)
[2022-05-18] MEDS: Insulin Regular 300 UNITS/3 ML VIAL SC PRN ×2 (05:07→12:09)
[2022-05-18] MEDS: HYDROcodone/Acetaminophen 5/325 mg Tablet PO PRN (05:56)
[2022-05-18] MEDS: Heparin 5,000 UNITS/ML VIAL SC SCH ×3 (08:47→21:17)
[2022-05-18] MEDS: Insulin Glargine 30 UNITS/0.3 ML VIAL SC SCH (08:47)
[2022-05-18] MEDS: Bacitracin 1 PK TOP SCH (08:47)
[2022-05-18] MEDS: Carvedilol 6.25 MG TAB PO SCH ×2 (08:47→17:29)
[2022-05-18] MEDS: Polyethylene Glycol 3350 17 GM Packet PO SCH ×2 (08:47→21:18)
[2022-05-18] MEDS: Gabapentin 300 MG CAP PO SCH (08:48)
[2022-05-18 09:23] LABS: #Eosinphils 0.1 thou/uL (0.0-0.7); #Lymphocytes 0.8 thou/uL (1.20-3.40); #Monocytes 0.9 thou/uL (0.11-0.59); #Neutrophils 10.1 thou/uL (1.40-6.50); %Basophils 0.1 % (0.0-1.0); %Eosinophils 0.5 % (0.0-10.0); %Lymphocytes 6.4 % (21.0-51.0); %Monocytes 7.6 % (0.0-10.0); %Neutrophils 85.3 % (42.0-75.0); Hemoglobin 8.1 g/dL (12.0-16.0); Mean Corpuscular HGB CONC 31.4 g/dL (32.0-36.0); Mean Corpuscular Hemoglobin 31.8 pg (27.0-31.0); Mean Platelet Volume 10.7 fL (7.4-10.4); Platelet Count 82 10x3/uL (130-400); RBC Distribution Width 14.8 % (11.5-14.5); Red Blood Cell (RBC) Count 2.56 mill/uL (4.20-5.40); White Blood Cell (WBC) Count 11.9 10x3/uL (4.8-10.8)
[2022-05-18] MEDS ORDERED: Lidocaine 1% w/Epinephrine 1:100K 20 ML VIAL FS SCH (12:45)
[2022-05-18] MEDS: Dextrose 5%-Lactated Ringers 1,000 ML IV SCH (17:27)
[2022-05-18 18:38] VITALS: BMI 19.9
[2022-05-18] MEDS: Atorvastatin Calcium 40 MG TAB PO SCH (21:19)
[2022-05-19] MEDS: HYDROcodone/Acetaminophen 5/325 mg Tablet PO PRN ×5 (01:16→22:39)
[2022-05-19] MEDS: Fentanyl 100 MCG/2 ML VIAL SLOW IVP PRN ×2 (05:01→20:58)
[2022-05-19] MEDS ORDERED: Lidocaine 1% w/Epinephrine 1:100K 20 ML VIAL FS SCH (06:00)
[2022-05-19] MEDS: Bacitracin 1 PK TOP SCH (06:42)
[2022-05-19] MEDS ORDERED: Bupivacaine HCl 0.5%/Epinephrine 1:200,000/PF 30 ml Vial ONE (07:54)
[2022-05-19] MEDS ORDERED: Heparin 5,000 UNITS/ML VIAL ONE (07:54)
[2022-05-19] MEDS ORDERED: Lidocaine 2% PF 5 ML VIAL ONE (07:54)
[2022-05-19] MEDS ORDERED: Protamine Sulfate 50 MG/5 ML VIAL ONE (07:54)
[2022-05-19 08:34] LABS: #Eosinphils 0.1 thou/uL (0.0-0.7); #Lymphocytes 0.9 thou/uL (1.20-3.40); #Monocytes 0.9 thou/uL (0.11-0.59); #Neutrophils 11.1 thou/uL (1.40-6.50); %Eosinophils 0.7 % (0.0-10.0); %Lymphocytes 7.1 % (21.0-51.0); %Monocytes 6.9 % (0.0-10.0); %Neutrophils 85.3 % (42.0-75.0); Hemoglobin 7.8 g/dL (12.0-16.0); Mean Corpuscular HGB CONC 31.4 g/dL (32.0-36.0); Mean Corpuscular Hemoglobin 31.4 pg (27.0-31.0); Mean Platelet Volume 10.1 fL (7.4-10.4); Platelet Count 91 10x3/uL (130-400); RBC Distribution Width 14.8 % (11.5-14.5); Red Blood Cell (RBC) Count 2.48 mill/uL (4.20-5.40)
[2022-05-19] MEDS ORDERED: Bupivacaine PF 0.5% 30 ML VIAL ONE (08:44)
[2022-05-19] MEDS ORDERED: Fentanyl 100 MCG/2 ML VIAL ONE (08:44)
[2022-05-19] MEDS ORDERED: Heparin 10,000 UNITS/ 10 ML VIAL ONE (08:50)
[2022-05-19 09:03] LABS: Anion Gap 12 mmol/L (10-20); BUN (Urea Nitrogen) 41 mg/dL (9.8-20.1); Calc. Creatinine Clearance 9 mL/min (70-130); Carbon Dioxide 25 mmol/L (23-31); Chloride 97 mmol/L (98-107); Estimated GFR 15; Glucose 192 mg/dL (80-115); Potassium 4.3 mmol/L (3.5-5.1); Sodium 130 mmol/L (136-145)
[2022-05-19] MEDS: Carvedilol 6.25 MG TAB PO SCH ×2 (09:04→18:47)
[2022-05-19] MEDS ORDERED: Midazolam HCl 2 mg/2 ml Vial ONE (09:05)
[2022-05-19] MEDS ORDERED: fentaNYL PF 100 MCG/2 ML SYRINGE ONE (09:05)
[2022-05-19] MEDS ORDERED: Propofol 1,000 MG/100 ML VIAL IV ONE (09:05)
[2022-05-19] MEDS ORDERED: Clindamycin/D5W 900 mg/50 ml Premix Bag ONE (09:33)
[2022-05-19] MEDS: Gabapentin 300 MG CAP PO SCH (10:59)
[2022-05-19] MEDS: Insulin Glargine 30 UNITS/0.3 ML VIAL SC SCH (10:59)
[2022-05-19] MEDS: Heparin 5,000 UNITS/ML VIAL SC SCH ×3 (10:59→21:02)
[2022-05-19] MEDS: Polyethylene Glycol 3350 17 GM Packet PO SCH ×2 (11:00→21:03)
[2022-05-19] MEDS ORDERED: EPOETIN ALFA-EPBX (ESRD) 10,000 UNIT/ML VIAL SC SCH (12:00)
[2022-05-19] MEDS: Insulin Regular 300 UNITS/3 ML VIAL SC PRN (12:06)
[2022-05-19] MEDS ORDERED: Clindamycin/D5W 300 MG/50 ML BAG IVPB SCH (14:30)
[2022-05-19] MEDS: Atorvastatin Calcium 40 MG TAB PO SCH (21:02)
[2022-05-20] MEDS ORDERED: tiZANidine HCl 4 MG TAB PO SCH (01:00)
[2022-05-20] MEDS: Insulin Regular 300 UNITS/3 ML VIAL SC PRN (06:14)
[2022-05-20] MEDS: HYDROcodone/Acetaminophen 5/325 mg Tablet PO PRN ×2 (06:17→10:47)
[2022-05-20 09:07] LABS: #Basophils 0.1 thou/uL (0.0-0.2); #Eosinphils 0.1 thou/uL (0.0-0.7); #Lymphocytes 0.7 thou/uL (1.20-3.40); #Monocytes 0.8 thou/uL (0.11-0.59); #Neutrophils 10.9 thou/uL (1.40-6.50); %Basophils 0.6 % (0.0-1.0); %Eosinophils 0.8 % (0.0-10.0); %Lymphocytes 5.8 % (21.0-51.0); %Monocytes 6.6 % (0.0-10.0); %Neutrophils 86.1 % (42.0-75.0); Anisocytosis SLIGHT = 6-15 cells (100X) (0-5/hpf); Hypochromia SLIGHT = 6-15 cells (100X) (0-5/hpf); MDiff Complete? YES; Mean Corpuscular HGB CONC 31.3 g/dL (32.0-36.0); Mean Corpuscular Hemoglobin 31.8 pg (27.0-31.0); Mean Platelet Volume 9.5 fL (7.4-10.4); Platelet Count 110 10x3/uL (130-400); Platelet Morphology Comment Appears Decreased; RBC Distribution Width 14.6 % (11.5-14.5); Red Blood Cell (RBC) Count 2.19 mill/uL (4.20-5.40); White Blood Cell (WBC) Count 12.6 10x3/uL (4.8-10.8)
[2022-05-20] MEDS: Carvedilol 6.25 MG TAB PO SCH (09:30)
[2022-05-20] MEDS: Gabapentin 300 MG CAP PO SCH (09:30)
[2022-05-20] MEDS: Polyethylene Glycol 3350 17 GM Packet PO SCH (09:31)
[2022-05-20] MEDS: Bacitracin 1 PK TOP SCH (09:31)
[2022-05-20] MEDS: Insulin Glargine 30 UNITS/0.3 ML VIAL SC SCH (09:31)
[2022-05-20] MEDS: Heparin 5,000 UNITS/ML VIAL SC SCH (09:46)
[2022-05-20 12:36] VITALS: BP 148/83; TEMP 97.9
== END 2022-05-20 11:42 | DRG 853 ==
LOC: ERS 16:14 → SDC/OP 22:09 → CCU 22:10 → SURG A 05-10 12:56
PROVIDERS: ADMIT Surgery; ATTEND Family Medicine
PROC: 04HY32Z Insertion of Monitoring Device into Lower Artery, Percutaneous Approach (ICD-10-PCS; 2022-05-05)
PROC: 4A133B1 Monitoring of Arterial Pressure, Peripheral, Percutaneous Approach (ICD-10-PCS; 2022-05-05)
PROC: 4A133J1 Monitoring of Arterial Pulse, Peripheral, Percutaneous Approach (ICD-10-PCS; 2022-05-05)
PROC: 3E043XZ Introduction of Vasopressor into Central Vein, Percutaneous Approach (ICD-10-PCS; 2022-05-05)
PROC: 30233J1 Transfusion of Nonautologous Serum Albumin into Peripheral Vein, Percutaneous Approach (ICD-10-PCS; 2022-05-05)
PROC: 0DH67UZ Insertion of Feeding Device into Stomach, Via Natural or Artificial Opening (ICD-10-PCS; principal; 2022-05-06)
PROC: 0WJG0ZZ Inspection of Peritoneal Cavity, Open Approach (ICD-10-PCS; 2022-05-06)
PROC: 0DH67UZ Insertion of Feeding Device into Stomach, Via Natural or Artificial Opening (ICD-10-PCS; 2022-05-06)
PROC: 06HY33Z Insertion of Infusion Device into Lower Vein, Percutaneous Approach (ICD-10-PCS; 2022-05-06)
PROC: 0BH17EZ Insertion of Endotracheal Airway into Trachea, Via Natural or Artificial Opening (ICD-10-PCS; 2022-05-06)
PROC: 5A1935Z Respiratory Ventilation, Less than 24 Consecutive Hours (ICD-10-PCS; 2022-05-06)
PROC: 06HY33Z Insertion of Infusion Device into Lower Vein, Percutaneous Approach (ICD-10-PCS; 2022-05-07)
PROC: 5A1D70Z Performance of Urinary Filtration, Intermittent, Less than 6 Hours Per Day (ICD-10-PCS; 2022-05-07)
PROC: 30233N1 Transfusion of Nonautologous Red Blood Cells into Peripheral Vein, Percutaneous Approach (ICD-10-PCS; 2022-05-09)
PROC: 6A551Z2 Pheresis of Platelets, Multiple (ICD-10-PCS; 2022-05-11)
PROC: 0Y6C0Z3 Detachment at Right Upper Leg, Low, Open Approach (ICD-10-PCS; 2022-05-12)
PROC: 02HV33Z Insertion of Infusion Device into Superior Vena Cava, Percutaneous Approach (ICD-10-PCS; 2022-05-12)
PROC: B548ZZA Ultrasonography of Superior Vena Cava, Guidance (ICD-10-PCS; 2022-05-12)
PROC: 03180JD Bypass Left Brachial Artery to Upper Arm Vein with Synthetic Substitute, Open Approach (ICD-10-PCS; 2022-05-19)
DX: A41.9 Sepsis, unspecified organism (principal); J96.01 Acute respiratory failure with hypoxia; N18.6 End stage renal disease; R65.21 Severe sepsis with septic shock; K65.8 Other peritonitis; K63.1 Perforation of intestine (nontraumatic); I13.2 Hypertensive heart and chronic kidney disease with heart failure and with stage 5 chronic kidney disease, or end stage renal disease; E11.52 Type 2 diabetes mellitus with diabetic peripheral angiopathy with gangrene; I50.22 Chronic systolic (congestive) heart failure; I69.351 Hemiplegia and hemiparesis following cerebral infarction affecting right dominant side; T82.868A Thrombosis due to vascular prosthetic devices, implants and grafts, initial encounter; N17.9 Acute kidney failure, unspecified; K57.92 Diverticulitis of intestine, part unspecified, without perforation or abscess without bleeding; K66.8 Other specified disorders of peritoneum; D63.1 Anemia in chronic kidney disease; E88.09 Other disorders of plasma-protein metabolism, not elsewhere classified; D69.6 Thrombocytopenia, unspecified; K52.9 Noninfective gastroenteritis and colitis, unspecified; I70.221 Atherosclerosis of native arteries of extremities with rest pain, right leg; I50.9 Heart failure, unspecified; E11.22 Type 2 diabetes mellitus with diabetic chronic kidney disease; E78.5 Hyperlipidemia, unspecified; Z98.890 Other specified postprocedural states; Z79.82 Long term (current) use of aspirin; Z79.4 Long term (current) use of insulin; Z79.899 Other long term (current) drug therapy; Z88.1 Allergy status to other antibiotic agents; Z88.8 Allergy status to other drugs, medicaments and biological substances; Z89.512 Acquired absence of left leg below knee; Z99.2 Dependence on renal dialysis; Z83.3 Family history of diabetes mellitus; Z82.49 Family history of ischemic heart disease and other diseases of the circulatory system; Z20.822 Contact with and (suspected) exposure to COVID-19
CPT/HCPCS: 36415; 36416; 36430; 36901; 70450; 71045; 74177; 80048; 80053; 80076; 82533; 82542; 82553; 82728; 82805; 83540; 83550; 83605; 83690; 83735; 83880; 84100; 84145; 84484; 85025; 85610; 85730; 86850; 86900; 86901; 87040; 87070; 87076; 87149; 87186; 87205; 87811; 88307; 88311; 90935; 94002; 94640; 96365; 96366; 96375; C1713; C1751; C1752; C1776; C9113; G0257; J0744; J0883; J1450; J1642; J1644; J1815; J2001; J2185; J2250; J2270; J2405; J2704; J2720; J3010; J3260; J3475; J3490; J7050; J7120; J7620; J7999; L8460; L8670; P9016; P9035; P9040; P9045; P9047; Q4081; Q5105; Q9967; S0020; U0002

== ENCOUNTER 2022-05-21 06:12 | Inpatient (IN) | payer MEDICARE, MEDICAID ==
[2022-05-21] MEDS ORDERED: Pantoprazole 40 MG VIAL ONE (06:31)
[2022-05-21 07:15] LABS: #Basophils 0.1 thou/uL (0.0-0.2); #Eosinphils 0.1 thou/uL (0.0-0.7); #Lymphocytes 1.1 thou/uL (1.20-3.40); #Monocytes 1.2 thou/uL (0.11-0.59); #Neutrophils 13.1 thou/uL (1.40-6.50); %Basophils 0.3 % (0.0-1.0); %Eosinophils 0.5 % (0.0-10.0); %Lymphocytes 6.8 % (21.0-51.0); %Monocytes 7.7 % (0.0-10.0); %Neutrophils 84.7 % (42.0-75.0); Hemoglobin 7.2 g/dL (12.0-16.0); Mean Corpuscular HGB CONC 31.6 g/dL (32.0-36.0); Mean Corpuscular Hemoglobin 30.9 pg (27.0-31.0); Mean Corpuscular Volume 97.9 fl (78.0-98.0); Mean Platelet Volume 9.3 fL (7.4-10.4); Platelet Count 132 10x3/uL (130-400); RBC Distribution Width 15.2 % (11.5-14.5); Red Blood Cell (RBC) Count 2.32 mill/uL (4.20-5.40); White Blood Cell (WBC) Count 15.5 10x3/uL (4.8-10.8)
[2022-05-21 07:29] LABS: ALT (SGPT) Less than 7 U/L (8-55); AST (SGOT) 12 U/L (5-34); Albumin 1.9 g/dL (3.4-4.8); Alkaline Phosphatase 63 U/L (40-110); Anion Gap 14 mmol/L (10-20); BUN (Urea Nitrogen) 41 mg/dL (9.8-20.1); Bilirubin, Total 0.5 mg/dL (0.2-1.2); Calc. Creatinine Clearance 0 mL/min (70-130); Calcium 7.9 mg/dL (7.8-10.44); Carbon Dioxide 23 mmol/L (23-31); Chloride 98 mmol/L (98-107); Estimated GFR 16; Globulin 2.4 g/dL (2.4-3.5); Glucose 104 mg/dL (80-115); INR-International Normal Ratio 1.3; Potassium 4.8 mmol/L (3.5-5.1); Protein, Total 4.3 g/dL (5.8-8.1); Prothrombin Time 17.2 sec (12.0-14.7); Sodium 130 mmol/L (136-145)
[2022-05-21 07:30] LABS: PTT 38.4 sec (22.9-36.1)
[2022-05-21] MEDS ORDERED: Fentanyl 100 MCG/2 ML VIAL ONE (07:57)
[2022-05-21] MEDS ORDERED: Calcium Carbonate 500 MG ChewTAB PO PRN (09:36)
[2022-05-21] MEDS ORDERED: Guaifenesin DM 100-10/5 ML UDCUP PO PRN (09:36)
[2022-05-21] MEDS ORDERED: Dextrose 5% in Water 1,000 ML IV PRN (09:36)
[2022-05-21] MEDS ORDERED: Dextrose 50% Abboject 50 ML SYRINGE SLOW IVP PRN (09:36)
[2022-05-21] MEDS ORDERED: Epoetin (ESRD) 10,000 UNITS/ML VIAL SC SCH (09:45)
[2022-05-21] MEDS ORDERED: Sodium Chloride 0.9% 1,000 ML IV SCH (09:45)
[2022-05-21] MEDS ORDERED: Fleet Enema 133 ML BOT PR SCH (10:00)
[2022-05-21 10:45] LABS: Hemoglobin 8.1 g/dL (12.0-16.0)
[2022-05-21] MEDS ORDERED: Epoetin (ESRD) 20,000 UNITS/ML SC SCH (11:15)
[2022-05-21] MEDS ORDERED: EPOETIN ALFA-EPBX (ESRD) 10,000 UNIT/ML VIAL SC SCH ×2 (12:00)
[2022-05-21] MEDS ORDERED: Bisacodyl 10 MG SUPP PR SCH (14:00)
[2022-05-21] MEDS ORDERED: Iopamidol-370 76% 500 ML 1 ML ONE (15:42)
[2022-05-21 16:50] LABS: Hemoglobin 7.7 g/dL (12.0-16.0)
[2022-05-21] MEDS: Atorvastatin Calcium 40 MG TAB PO SCH (20:42)
[2022-05-21] MEDS: Senokot S 8.6-50 MG TAB PO SCH (20:48)
[2022-05-21] MEDS: GoLYTELY 4,000 ml Bottle PO SCH (22:11)
[2022-05-21 23:26] LABS: Hemoglobin 7.6 g/dL (12.0-16.0)
[2022-05-22] MEDS: HYDROcodone/Acetaminophen 5/325 mg Tablet PO PRN ×3 (00:43→23:51)
[2022-05-22 01:58] LABS: Hemoglobin 6.9 g/dL (12.0-16.0)
[2022-05-22] MEDS ORDERED: Sodium Chloride 0.9% 500 ML IV SCH (02:45)
[2022-05-22] MEDS: GoLYTELY 4,000 ml Bottle PO SCH (05:25)
[2022-05-22 06:47] LABS: #Basophils 0.1 thou/uL (0.0-0.2); #Lymphocytes 0.9 thou/uL (1.20-3.40); #Monocytes 1.6 thou/uL (0.11-0.59); #Neutrophils 16.8 thou/uL (1.40-6.50); %Basophils 0.3 % (0.0-1.0); %Eosinophils 0.1 % (0.0-10.0); %Lymphocytes 4.8 % (21.0-51.0); %Monocytes 8.3 % (0.0-10.0); %Neutrophils 86.5 % (42.0-75.0); Hemoglobin 9.3 g/dL (12.0-16.0); Mean Corpuscular Hemoglobin 32.6 pg (27.0-31.0); Mean Corpuscular Volume 95.8 fl (78.0-98.0); Mean Platelet Volume 9.1 fL (7.4-10.4); Platelet Count 127 10x3/uL (130-400); RBC Distribution Width 14.2 % (11.5-14.5); Red Blood Cell (RBC) Count 2.85 mill/uL (4.20-5.40); White Blood Cell (WBC) Count 19.4 10x3/uL (4.8-10.8)
[2022-05-22 07:23] LABS: ALT (SGPT) Less than 7 U/L (8-55); AST (SGOT) 14 U/L (5-34); Albumin 1.9 g/dL (3.4-4.8); Alkaline Phosphatase 65 U/L (40-110); Anion Gap 14 mmol/L (10-20); BUN (Urea Nitrogen) 48 mg/dL (9.8-20.1); Bilirubin, Total 1.2 mg/dL (0.2-1.2); Calc. Creatinine Clearance 17 mL/min (70-130); Calcium 7.9 mg/dL (7.8-10.44); Carbon Dioxide 22 mmol/L (23-31); Chloride 99 mmol/L (98-107); Estimated GFR 14; Globulin 2.2 g/dL (2.4-3.5); Glucose 203 mg/dL (80-115); Potassium 5.2 mmol/L (3.5-5.1); Protein, Total 4.1 g/dL (5.8-8.1); Sodium 130 mmol/L (136-145)
[2022-05-22] MEDS ORDERED: Polyethylene Glycol 3350 17 GM Packet PO SCH (09:00)
[2022-05-22] MEDS: Gabapentin 300 MG CAP PO SCH (09:21)
[2022-05-22] MEDS: Senokot S 8.6-50 MG TAB PO SCH ×2 (09:23→20:32)
[2022-05-22] MEDS ORDERED: Albumin 25% 25 GM/100 ML BOT IVPB PRN (09:50)
[2022-05-22] MEDS ORDERED: Lidocaine 1% PF 5 ML VIAL ONE (11:51)
[2022-05-22] MEDS ORDERED: PROPOFOL 200 MG/20 ML VIAL ONE (11:51)
[2022-05-22] MEDS ORDERED: ePHEDrine 50 MG/ML VIAL ONE (11:51)
[2022-05-22] MEDS ORDERED: Ketamine 50 MG/ML (10ML VIAL) ONE (11:51)
[2022-05-22 13:22] LABS: Hemoglobin 9.6 g/dL (12.0-16.0)
[2022-05-22] MEDS ORDERED: HYDROmorphone 0.5 MG/0.5 ML SYRINGE SLOW IVP SCH (15:00)
[2022-05-22 20:02] LABS: Hemoglobin 8.4 g/dL (12.0-16.0)
[2022-05-22] MEDS: Atorvastatin Calcium 40 MG TAB PO SCH (20:31)
[2022-05-23] MEDS: HYDROcodone/Acetaminophen 5/325 mg Tablet PO PRN ×5 (04:21→23:34)
[2022-05-23 04:29] LABS: #Lymphocytes 1.1 thou/uL (1.20-3.40); #Monocytes 1.4 thou/uL (0.11-0.59); %Basophils 0.2 % (0.0-1.0); %Eosinophils 0.3 % (0.0-10.0); %Lymphocytes 6.9 % (21.0-51.0); %Monocytes 9.1 % (0.0-10.0); %Neutrophils 83.5 % (42.0-75.0); Mean Corpuscular HGB CONC 33.1 g/dL (32.0-36.0); Mean Corpuscular Hemoglobin 31.9 pg (27.0-31.0); Mean Corpuscular Volume 96.3 fl (78.0-98.0); Mean Platelet Volume 8.3 fL (7.4-10.4); Platelet Count 135 10x3/uL (130-400); RBC Distribution Width 14.6 % (11.5-14.5); White Blood Cell (WBC) Count 15.6 10x3/uL (4.8-10.8)
[2022-05-23 04:54] LABS: Anion Gap 21 mmol/L (10-20); BUN (Urea Nitrogen) 40 mg/dL (9.8-20.1); Calc. Creatinine Clearance 20 mL/min (70-130); Calcium 8.3 mg/dL (7.8-10.44); Carbon Dioxide 19 mmol/L (23-31); Chloride 99 mmol/L (98-107); Estimated GFR 16; Glucose 143 mg/dL (80-115); Magnesium 1.7 mg/dL (1.6-2.6); Potassium 4.7 mmol/L (3.5-5.1); Sodium 134 mmol/L (136-145)
[2022-05-23] MEDS: Gabapentin 300 MG CAP PO SCH (08:14)
[2022-05-23] MEDS: Senokot S 8.6-50 MG TAB PO SCH ×2 (08:14→20:10)
[2022-05-23] MEDS: Ondansetron PF 4 MG/2 ML Vial IVP PRN (11:38)
[2022-05-23] MEDS: Acetaminophen 325 MG TAB PO PRN ×2 (11:42→20:10)
[2022-05-23] MEDS: Atorvastatin Calcium 40 MG TAB PO SCH (20:10)
[2022-05-24] MEDS: HYDROcodone/Acetaminophen 5/325 mg Tablet PO PRN (05:16)
[2022-05-24 05:26] LABS: #Lymphocytes 0.8 thou/uL (1.20-3.40); #Monocytes 1.7 thou/uL (0.11-0.59); #Neutrophils 13.5 thou/uL (1.40-6.50); %Eosinophils 0.2 % (0.0-10.0); %Lymphocytes 5.2 % (21.0-51.0); %Monocytes 10.4 % (0.0-10.0); %Neutrophils 84.1 % (42.0-75.0); Hemoglobin 7.3 g/dL (12.0-16.0); Mean Corpuscular HGB CONC 33.2 g/dL (32.0-36.0); Mean Corpuscular Hemoglobin 30.5 pg (27.0-31.0); Mean Corpuscular Volume 91.9 fl (78.0-98.0); Platelet Count 130 10x3/uL (130-400)
[2022-05-24 06:07] LABS: Anion Gap 18 mmol/L (10-20); BUN (Urea Nitrogen) 43 mg/dL (9.8-20.1); Calc. Creatinine Clearance 18 mL/min (70-130); Carbon Dioxide 21 mmol/L (23-31); Chloride 98 mmol/L (98-107); Potassium 4.6 mmol/L (3.5-5.1); Sodium 132 mmol/L (136-145)
[2022-05-24 06:08] LABS: Calcium 7.9 mg/dL (7.8-10.44); Estimated GFR 14; Glucose 229 mg/dL (80-115)
[2022-05-24] MEDS: Gabapentin 300 MG CAP PO SCH (08:24)
[2022-05-24] MEDS: Insulin Glargine 30 UNITS/0.3 ML VIAL SC SCH (08:24)
[2022-05-24] MEDS: Senokot S 8.6-50 MG TAB PO SCH ×2 (08:25→23:50)
[2022-05-24] MEDS: Atorvastatin Calcium 40 MG TAB PO SCH (23:50)
[2022-05-25 02:20] LABS: Hemoglobin 8.2 g/dL (12.0-16.0)
[2022-05-25] MEDS: traMADol HCl 50 MG TAB PO PRN (03:18)
[2022-05-25] MEDS: HYDROcodone/Acetaminophen 5/325 mg Tablet PO PRN ×2 (04:57→15:12)
[2022-05-25 05:52] LABS: #Lymphocytes 0.7 thou/uL (1.20-3.40); #Monocytes 1.4 thou/uL (0.11-0.59); #Neutrophils 14.2 thou/uL (1.40-6.50); %Basophils 0.1 % (0.0-1.0); %Eosinophils 0.2 % (0.0-10.0); %Lymphocytes 4.5 % (21.0-51.0); %Monocytes 8.3 % (0.0-10.0); %Neutrophils 86.8 % (42.0-75.0); Mean Corpuscular HGB CONC 32.7 g/dL (32.0-36.0); Mean Corpuscular Hemoglobin 29.6 pg (27.0-31.0); Mean Corpuscular Volume 90.5 fl (78.0-98.0); Mean Platelet Volume 8.2 fL (7.4-10.4); Platelet Count 109 10x3/uL (130-400); RBC Distribution Width 17.4 % (11.5-14.5); Red Blood Cell (RBC) Count 2.71 mill/uL (4.20-5.40); White Blood Cell (WBC) Count 16.3 10x3/uL (4.8-10.8)
[2022-05-25 06:03] LABS: Anion Gap 13 mmol/L (10-20); BUN (Urea Nitrogen) 31 mg/dL (9.8-20.1); Calc. Creatinine Clearance 37 mL/min (70-130); Calcium 7.8 mg/dL (7.8-10.44); Carbon Dioxide 25 mmol/L (23-31); Chloride 100 mmol/L (98-107); Estimated GFR 18; Glucose 126 mg/dL (80-115); Potassium 4.1 mmol/L (3.5-5.1); Sodium 134 mmol/L (136-145)
[2022-05-25] MEDS: Insulin Glargine 30 UNITS/0.3 ML VIAL SC SCH (08:23)
[2022-05-25] MEDS: Gabapentin 300 MG CAP PO SCH (08:24)
[2022-05-25] MEDS: Senokot S 8.6-50 MG TAB PO SCH (08:24)
[2022-05-25] MEDS: Atorvastatin Calcium 40 MG TAB PO SCH (21:22)
[2022-05-26] MEDS: Senokot S 8.6-50 MG TAB PO SCH ×3 (04:50→21:11)
[2022-05-26] MEDS: traMADol HCl 50 MG TAB PO PRN (05:24)
[2022-05-26 06:02] LABS: #Eosinphils 0.1 thou/uL (0.0-0.7); #Lymphocytes 1.1 thou/uL (1.20-3.40); #Monocytes 1.2 thou/uL (0.11-0.59); #Neutrophils 11.8 thou/uL (1.40-6.50); %Basophils 0.3 % (0.0-1.0); %Eosinophils 0.6 % (0.0-10.0); %Lymphocytes 7.6 % (21.0-51.0); %Monocytes 8.6 % (0.0-10.0); %Neutrophils 83.1 % (42.0-75.0); Hemoglobin 7.8 g/dL (12.0-16.0); Mean Corpuscular HGB CONC 32.5 g/dL (32.0-36.0); Mean Corpuscular Hemoglobin 29.9 pg (27.0-31.0); Mean Corpuscular Volume 91.9 fl (78.0-98.0); Mean Platelet Volume 8.1 fL (7.4-10.4); Platelet Count 104 10x3/uL (130-400); RBC Distribution Width 17.6 % (11.5-14.5); Red Blood Cell (RBC) Count 2.62 mill/uL (4.20-5.40); White Blood Cell (WBC) Count 14.2 10x3/uL (4.8-10.8)
[2022-05-26 06:17] LABS: Anion Gap 15 mmol/L (10-20); BUN (Urea Nitrogen) 37 mg/dL (9.8-20.1); Calc. Creatinine Clearance 19 mL/min (70-130); Carbon Dioxide 24 mmol/L (23-31); Chloride 97 mmol/L (98-107); Estimated GFR 14; Glucose 176 mg/dL (80-115); Potassium 4.5 mmol/L (3.5-5.1); Sodium 131 mmol/L (136-145)
[2022-05-26] MEDS ORDERED: EPOETIN ALFA-EPBX (ESRD) 10,000 UNIT/ML VIAL SC SCH (09:00)
[2022-05-26] MEDS: Insulin Glargine 30 UNITS/0.3 ML VIAL SC SCH ×2 (09:04→09:12)
[2022-05-26] MEDS: Gabapentin 300 MG CAP PO SCH (09:05)
[2022-05-26] MEDS: HYDROcodone/Acetaminophen 5/325 mg Tablet PO PRN (09:16)
[2022-05-26] MEDS ORDERED: Sterile Water 10 ML VIAL IVP SCH ×2 (15:45)
[2022-05-26] MEDS ORDERED: Activase 2 MG VIAL CATH SCH ×2 (15:45)
[2022-05-26] MEDS: EPOETIN ALFA-EPBX (ESRD) 10,000 UNIT/ML VIAL SC SCH (17:34)
[2022-05-26] MEDS: Atorvastatin Calcium 40 MG TAB PO SCH (21:11)
[2022-05-27 05:46] LABS: Anion Gap 18 mmol/L (10-20); BUN (Urea Nitrogen) 43 mg/dL (9.8-20.1); Calc. Creatinine Clearance 16 mL/min (70-130); Calcium 8.3 mg/dL (7.8-10.44); Carbon Dioxide 21 mmol/L (23-31); Chloride 95 mmol/L (98-107); Estimated GFR 12; Glucose 221 mg/dL (80-115); Potassium 4.8 mmol/L (3.5-5.1); Sodium 129 mmol/L (136-145)
[2022-05-27 05:51] LABS: #Lymphocytes 0.9 thou/uL (1.20-3.40); #Monocytes 0.9 thou/uL (0.11-0.59); #Neutrophils 12.4 thou/uL (1.40-6.50); %Basophils 0.1 % (0.0-1.0); %Eosinophils 0.3 % (0.0-10.0); %Lymphocytes 6.1 % (21.0-51.0); %Monocytes 6.2 % (0.0-10.0); %Neutrophils 87.3 % (42.0-75.0); Hemoglobin 9.5 g/dL (12.0-16.0); Mean Corpuscular HGB CONC 32.3 g/dL (32.0-36.0); Mean Corpuscular Hemoglobin 30.1 pg (27.0-31.0); Mean Corpuscular Volume 93.1 fl (78.0-98.0); Mean Platelet Volume 8.2 fL (7.4-10.4); Platelet Count 108 10x3/uL (130-400); RBC Distribution Width 17.2 % (11.5-14.5); Red Blood Cell (RBC) Count 3.14 mill/uL (4.20-5.40); White Blood Cell (WBC) Count 14.3 10x3/uL (4.8-10.8)
[2022-05-27] MEDS: HumaLOG 300 UNITS/3 ML VIAL SC PRN (06:30)
[2022-05-27] MEDS ORDERED: Heparin 10,000 UNITS/ 10 ML VIAL ONE (08:43)
[2022-05-27] MEDS: traMADol HCl 50 MG TAB PO PRN (09:54)
[2022-05-27] MEDS: Senokot S 8.6-50 MG TAB PO SCH ×2 (09:55→20:34)
[2022-05-27] MEDS: Gabapentin 300 MG CAP PO SCH (11:25)
[2022-05-27] MEDS: Insulin Glargine 30 UNITS/0.3 ML VIAL SC SCH (11:27)
[2022-05-27 15:01] VITALS: BMI 22.8
[2022-05-27] MEDS: Atorvastatin Calcium 40 MG TAB PO SCH (20:34)
[2022-05-28] MEDS: HYDROcodone/Acetaminophen 5/325 mg Tablet PO PRN ×2 (00:27→20:17)
[2022-05-28] MEDS: Acetaminophen 325 MG TAB PO PRN (03:47)
[2022-05-28 06:18] LABS: #Lymphocytes 0.8 thou/uL (1.20-3.40); #Neutrophils 12.9 thou/uL (1.40-6.50); %Eosinophils 0.2 % (0.0-10.0); %Lymphocytes 5.4 % (21.0-51.0); %Monocytes 6.5 % (0.0-10.0); %Neutrophils 87.8 % (42.0-75.0); Hemoglobin 7.5 g/dL (12.0-16.0); Mean Corpuscular HGB CONC 33.4 g/dL (32.0-36.0); Mean Corpuscular Hemoglobin 31.6 pg (27.0-31.0); Mean Corpuscular Volume 94.5 fl (78.0-98.0); Mean Platelet Volume 7.8 fL (7.4-10.4); Platelet Count 83 10x3/uL (130-400); RBC Distribution Width 16.8 % (11.5-14.5); Red Blood Cell (RBC) Count 2.36 mill/uL (4.20-5.40); White Blood Cell (WBC) Count 14.7 10x3/uL (4.8-10.8)
[2022-05-28 06:38] LABS: Anion Gap 11 mmol/L (10-20); BUN (Urea Nitrogen) 31 mg/dL (9.8-20.1); Calc. Creatinine Clearance 22 mL/min (70-130); Calcium 7.8 mg/dL (7.8-10.44); Carbon Dioxide 26 mmol/L (23-31); Chloride 99 mmol/L (98-107); Estimated GFR 17; Glucose 138 mg/dL (80-115); Potassium 3.8 mmol/L (3.5-5.1); Sodium 132 mmol/L (136-145)
[2022-05-28] MEDS: traMADol HCl 50 MG TAB PO PRN (09:39)
[2022-05-28] MEDS: Gabapentin 300 MG CAP PO SCH (11:06)
[2022-05-28] MEDS: Insulin Glargine 30 UNITS/0.3 ML VIAL SC SCH (11:07)
[2022-05-28] MEDS ORDERED: Heparin 10,000 UNITS/ 10 ML VIAL ONE (11:51)
[2022-05-28 12:56] LABS: Hemoglobin 10.2 g/dL (12.0-16.0); Mean Corpuscular HGB CONC 34.1 g/dL (32.0-36.0); Mean Corpuscular Hemoglobin 31.1 pg (27.0-31.0); Mean Corpuscular Volume 91.4 fl (78.0-98.0); Mean Platelet Volume 8.4 fL (7.4-10.4); Platelet Count 57 10x3/uL (130-400); RBC Distribution Width 15.2 % (11.5-14.5); Red Blood Cell (RBC) Count 3.29 mill/uL (4.20-5.40); White Blood Cell (WBC) Count 18.6 10x3/uL (4.8-10.8)
[2022-05-28 13:14] LABS: Anion Gap 10 mmol/L (10-20); BUN (Urea Nitrogen) 16 mg/dL (9.8-20.1); Calc. Creatinine Clearance 39 mL/min (70-130); Calcium 7.5 mg/dL (7.8-10.44); Carbon Dioxide 27 mmol/L (23-31); Chloride 103 mmol/L (98-107); Estimated GFR 34; Glucose 114 mg/dL (80-115); Potassium 3.4 mmol/L (3.5-5.1); Sodium 137 mmol/L (136-145)
[2022-05-28 13:29] LABS: Anisocytosis SLIGHT = 6-15 cells (100X) (0-5/hpf); Band 20 % (5-11); Burr Cells SLIGHT = 2-5 cells (100X) (0-1/hpf); Eosinophils 1 % (0-10); Lymphocytes 2 % (21-51); MDiff Complete? YES; Monocytes 5 % (0-10); Neutrophil 72 % (42-75); Ovalocytes SLIGHT = 2-5 cells (100X) (0-1/hpf); Platelet Morphology Comment Appears Decreased; Polychromasia SLIGHT = 2-3 cells (100X) (0-2/hpf); Toxic Granulation SLIGHT
[2022-05-28] MEDS: Atorvastatin Calcium 40 MG TAB PO SCH (20:17)
[2022-05-29] MEDS: HYDROcodone/Acetaminophen 5/325 mg Tablet PO PRN ×4 (01:18→20:31)
[2022-05-29 06:34] LABS: Anion Gap 11 mmol/L (10-20); BUN (Urea Nitrogen) 26 mg/dL (9.8-20.1); Calc. Creatinine Clearance 25 mL/min (70-130); Calcium 7.9 mg/dL (7.8-10.44); Carbon Dioxide 27 mmol/L (23-31); Chloride 101 mmol/L (98-107); Estimated GFR 20; Glucose 125 mg/dL (80-115); Potassium 3.7 mmol/L (3.5-5.1); Sodium 135 mmol/L (136-145)
[2022-05-29 06:37] LABS: Anisocytosis SLIGHT = 6-15 cells (100X) (0-5/hpf); Band 2 % (5-11); Hemoglobin 8.7 g/dL (12.0-16.0); Lymphocytes 5 % (21-51); MDiff Complete? YES; Mean Corpuscular HGB CONC 33.9 g/dL (32.0-36.0); Mean Corpuscular Hemoglobin 31.1 pg (27.0-31.0); Mean Corpuscular Volume 91.8 fl (78.0-98.0); Mean Platelet Volume 8.6 fL (7.4-10.4); Monocytes 4 % (0-10); Neutrophil 88 % (42-75); Platelet Count 57 10x3/uL (130-400); Platelet Morphology Comment Appears Decreased; RBC Distribution Width 16.1 % (11.5-14.5); White Blood Cell (WBC) Count 16.5 10x3/uL (4.8-10.8)
[2022-05-29] MEDS: Gabapentin 300 MG CAP PO SCH (09:29)
[2022-05-29] MEDS: Insulin Glargine 30 UNITS/0.3 ML VIAL SC SCH (10:01)
[2022-05-29] MEDS: Atorvastatin Calcium 40 MG TAB PO SCH (20:31)
[2022-05-29] MEDS: HumaLOG 300 UNITS/3 ML VIAL SC PRN (20:31)
[2022-05-30] MEDS: traMADol HCl 50 MG TAB PO PRN (04:23)
[2022-05-30 05:10] LABS: #Eosinphils 0.1 thou/uL (0.0-0.7); #Monocytes 1.4 thou/uL (0.11-0.59); #Neutrophils 16.6 thou/uL (1.40-6.50); %Basophils 0.1 % (0.0-1.0); %Eosinophils 0.3 % (0.0-10.0); %Lymphocytes 5.4 % (21.0-51.0); %Monocytes 7.2 % (0.0-10.0); Hemoglobin 9.1 g/dL (12.0-16.0); Mean Corpuscular HGB CONC 33.7 g/dL (32.0-36.0); Mean Corpuscular Hemoglobin 31.5 pg (27.0-31.0); Mean Corpuscular Volume 93.4 fl (78.0-98.0); Mean Platelet Volume 8.6 fL (7.4-10.4); Platelet Count 70 10x3/uL (130-400); RBC Distribution Width 16.5 % (11.5-14.5); Red Blood Cell (RBC) Count 2.88 mill/uL (4.20-5.40); White Blood Cell (WBC) Count 19.1 10x3/uL (4.8-10.8)
[2022-05-30 05:25] LABS: Anion Gap 13 mmol/L (10-20); BUN (Urea Nitrogen) 31 mg/dL (9.8-20.1); Calc. Creatinine Clearance 22 mL/min (70-130); Calcium 8.1 mg/dL (7.8-10.44); Carbon Dioxide 25 mmol/L (23-31); Chloride 98 mmol/L (98-107); Estimated GFR 17; Glucose 150 mg/dL (80-115); Potassium 3.8 mmol/L (3.5-5.1); Sodium 132 mmol/L (136-145)
[2022-05-30] MEDS: Gabapentin 300 MG CAP PO SCH (09:07)
[2022-05-30] MEDS: Insulin Glargine 30 UNITS/0.3 ML VIAL SC SCH (09:07)
[2022-05-30] MEDS: HYDROcodone/Acetaminophen 5/325 mg Tablet PO PRN ×3 (09:08→20:03)
[2022-05-30] MEDS: HumaLOG 300 UNITS/3 ML VIAL SC PRN (11:57)
[2022-05-30] MEDS: Ondansetron PF 4 MG/2 ML Vial IVP PRN (14:47)
[2022-05-30] MEDS: Atorvastatin Calcium 40 MG TAB PO SCH (20:03)
[2022-05-31] MEDS: HYDROcodone/Acetaminophen 5/325 mg Tablet PO PRN ×3 (05:27→15:57)
[2022-05-31 05:56] LABS: #Eosinphils 0.1 thou/uL (0.0-0.7); #Lymphocytes 1.1 thou/uL (1.20-3.40); #Monocytes 1.2 thou/uL (0.11-0.59); #Neutrophils 16.5 thou/uL (1.40-6.50); %Basophils 0.1 % (0.0-1.0); %Eosinophils 0.3 % (0.0-10.0); %Lymphocytes 5.8 % (21.0-51.0); %Monocytes 6.5 % (0.0-10.0); %Neutrophils 87.3 % (42.0-75.0); Hemoglobin 8.7 g/dL (12.0-16.0); Mean Corpuscular HGB CONC 32.4 g/dL (32.0-36.0); Mean Corpuscular Volume 95.6 fl (78.0-98.0); Mean Platelet Volume 8.5 fL (7.4-10.4); Platelet Count 72 10x3/uL (130-400); RBC Distribution Width 16.6 % (11.5-14.5); Red Blood Cell (RBC) Count 2.79 mill/uL (4.20-5.40); White Blood Cell (WBC) Count 18.9 10x3/uL (4.8-10.8)
[2022-05-31 06:09] LABS: Anion Gap 12 mmol/L (10-20); BUN (Urea Nitrogen) 36 mg/dL (9.8-20.1); Calc. Creatinine Clearance 19 mL/min (70-130); Calcium 8.1 mg/dL (7.8-10.44); Carbon Dioxide 25 mmol/L (23-31); Chloride 99 mmol/L (98-107); Estimated GFR 15; Glucose 82 mg/dL (80-115); Sodium 132 mmol/L (136-145)
[2022-05-31] MEDS: Insulin Glargine 30 UNITS/0.3 ML VIAL SC SCH (08:56)
[2022-05-31] MEDS: Acetaminophen 325 MG TAB PO PRN (08:56)
[2022-05-31] MEDS: Gabapentin 300 MG CAP PO SCH (08:57)
[2022-05-31] MEDS: traMADol HCl 50 MG TAB PO PRN (09:44)
[2022-05-31] MEDS ORDERED: Activase 2 MG VIAL CATH SCH (12:15)
[2022-05-31] MEDS: Ondansetron PF 4 MG/2 ML Vial IVP PRN (16:41)
[2022-05-31] MEDS: Atorvastatin Calcium 40 MG TAB PO SCH (20:55)
[2022-05-31] MEDS ORDERED: Dextrose 5 %-0.45 % NaCl 500 ML IV SCH (21:00)
[2022-05-31] MEDS ORDERED: Electrolyte Replacement Protocol 1 EACH FS SCH (21:00)
[2022-05-31 21:01] LABS: #Lymphocytes 0.8 thou/uL (1.20-3.40); #Monocytes 1.2 thou/uL (0.11-0.59); #Neutrophils 17.3 thou/uL (1.40-6.50); %Basophils 0.2 % (0.0-1.0); %Eosinophils 0.2 % (0.0-10.0); %Lymphocytes 4.3 % (21.0-51.0); %Monocytes 6.2 % (0.0-10.0); %Neutrophils 89.1 % (42.0-75.0); Hemoglobin 8.8 g/dL (12.0-16.0); Mean Corpuscular Hemoglobin 30.8 pg (27.0-31.0); Mean Corpuscular Volume 96.1 fl (78.0-98.0); Mean Platelet Volume 8.7 fL (7.4-10.4); Platelet Count 62 10x3/uL (130-400); RBC Distribution Width 17.2 % (11.5-14.5); Red Blood Cell (RBC) Count 2.86 mill/uL (4.20-5.40); White Blood Cell (WBC) Count 19.4 10x3/uL (4.8-10.8)
[2022-05-31 21:17] LABS: Lactic Acid 1.3 mmol/L (0.5-2.2)
[2022-05-31 21:23] LABS: ALT (SGPT) Less than 7 U/L (8-55); AST (SGOT) 11 U/L (5-34); Albumin 2.1 g/dL (3.4-4.8); Alkaline Phosphatase 66 U/L (40-110); Anion Gap 9 mmol/L (10-20); BUN (Urea Nitrogen) 33 mg/dL (9.8-20.1); Bilirubin, Total 0.4 mg/dL (0.2-1.2); Calc. Creatinine Clearance 21 mL/min (70-130); Calcium 7.6 mg/dL (7.8-10.44); Carbon Dioxide 25 mmol/L (23-31); Chloride 98 mmol/L (98-107); Estimated GFR 16; Globulin 2.3 g/dL (2.4-3.5); Glucose 243 mg/dL (80-115); Magnesium 1.7 mg/dL (1.6-2.6); Potassium 3.9 mmol/L (3.5-5.1); Protein, Total 4.4 g/dL (5.8-8.1); Sodium 128 mmol/L (136-145)
[2022-06-01 05:30] LABS: Anion Gap 14 mmol/L (10-20); BUN (Urea Nitrogen) 37 mg/dL (9.8-20.1); Calc. Creatinine Clearance 20 mL/min (70-130); Calcium 7.9 mg/dL (7.8-10.44); Carbon Dioxide 24 mmol/L (23-31); Chloride 98 mmol/L (98-107); Estimated GFR 15; Glucose 87 mg/dL (80-115); Potassium 4.2 mmol/L (3.5-5.1); Sodium 132 mmol/L (136-145)
[2022-06-01 05:47] LABS: Band 18 % (5-11); Hemoglobin 8.8 g/dL (12.0-16.0); Hypochromia SLIGHT = 6-15 cells (100X) (0-5/hpf); Lymphocytes 4 % (21-51); MDiff Complete? YES; Mean Corpuscular Hemoglobin 30.7 pg (27.0-31.0); Mean Corpuscular Volume 96.1 fl (78.0-98.0); Monocytes 6 % (0-10); Neutrophil 72 % (42-75); Platelet Count 64 10x3/uL (130-400); Platelet Morphology Comment Appears Decreased; RBC Distribution Width 16.7 % (11.5-14.5); Red Blood Cell (RBC) Count 2.87 mill/uL (4.20-5.40); White Blood Cell (WBC) Count 21.1 10x3/uL (4.8-10.8)
[2022-06-01] MEDS: HYDROcodone/Acetaminophen 5/325 mg Tablet PO PRN ×3 (08:42→16:52)
[2022-06-01] MEDS: Gabapentin 300 MG CAP PO SCH (08:44)
[2022-06-01] MEDS: Insulin Glargine 30 UNITS/0.3 ML VIAL SC SCH (08:44)
[2022-06-01] MEDS ORDERED: Heparin 10,000 UNITS/1 ML VIAL ONE (09:02)
[2022-06-01] MEDS: Acetaminophen 325 MG TAB PO PRN (10:22)
[2022-06-01] MEDS: traMADol HCl 50 MG TAB PO PRN (11:27)
[2022-06-01] MEDS: EPOETIN ALFA-EPBX (ESRD) 10,000 UNIT/ML VIAL SC SCH (13:41)
[2022-06-01] MEDS: Atorvastatin Calcium 40 MG TAB PO SCH (21:29)
[2022-06-02] MEDS: HYDROcodone/Acetaminophen 5/325 mg Tablet PO PRN ×2 (00:34→08:36)
[2022-06-02] MEDS: traMADol HCl 50 MG TAB PO PRN (05:21)
[2022-06-02 06:03] VITALS: TEMP 98.4
[2022-06-02 06:08] LABS: #Lymphocytes 1.2 thou/uL (1.20-3.40); #Monocytes 1.4 thou/uL (0.11-0.59); #Neutrophils 21.6 thou/uL (1.40-6.50); %Basophils 0.1 % (0.0-1.0); %Eosinophils 0.1 % (0.0-10.0); %Lymphocytes 4.9 % (21.0-51.0); %Monocytes 5.8 % (0.0-10.0); %Neutrophils 89.1 % (42.0-75.0); Hemoglobin 8.5 g/dL (12.0-16.0); Mean Corpuscular HGB CONC 31.3 g/dL (32.0-36.0); Mean Corpuscular Hemoglobin 30.3 pg (27.0-31.0); Mean Corpuscular Volume 96.8 fl (78.0-98.0); Mean Platelet Volume 8.8 fL (7.4-10.4); Platelet Count 59 10x3/uL (130-400); RBC Distribution Width 17.1 % (11.5-14.5); Red Blood Cell (RBC) Count 2.79 mill/uL (4.20-5.40); White Blood Cell (WBC) Count 24.2 10x3/uL (4.8-10.8)
[2022-06-02 06:25] LABS: Anion Gap 13 mmol/L (10-20); BUN (Urea Nitrogen) 20 mg/dL (9.8-20.1); Calc. Creatinine Clearance 29 mL/min (70-130); Calcium 7.7 mg/dL (7.8-10.44); Carbon Dioxide 27 mmol/L (23-31); Chloride 98 mmol/L (98-107); Estimated GFR 24; Glucose 116 mg/dL (80-115); Potassium 3.9 mmol/L (3.5-5.1); Sodium 134 mmol/L (136-145)
[2022-06-02] MEDS: Ondansetron PF 4 MG/2 ML Vial IVP PRN ×2 (08:29→14:13)
[2022-06-02 08:37] VITALS: BP 121/70
[2022-06-02] MEDS: Gabapentin 300 MG CAP PO SCH (08:58)
[2022-06-02] MEDS: Insulin Glargine 30 UNITS/0.3 ML VIAL SC SCH (09:00)
[2022-06-02] MEDS ORDERED: metroNIDAZOLE 500 MG TAB PO SCH (11:30)
[2022-06-02] MEDS ORDERED: Heparin 10,000 UNITS/ 10 ML VIAL ONE (13:57)
[2022-06-02] MEDS: EPOETIN ALFA-EPBX (ESRD) 10,000 UNIT/ML VIAL SC SCH (14:00)
== END 2022-06-02 16:23 | DRG 393 ==
LOC: ERS 06:12 → ERHOLD 09:25 → OBSVTOIN 10:03 → SURG A 13:42 → CCU 05-22 03:46 → SURG A 05-23 16:33
PROVIDERS: ADMIT Internal Medicine; ATTEND Internal Medicine
PROC: 30233N1 Transfusion of Nonautologous Red Blood Cells into Peripheral Vein, Percutaneous Approach (ICD-10-PCS; 2022-05-21)
PROC: 0DBP8ZX Excision of Rectum, Via Natural or Artificial Opening Endoscopic, Diagnostic (ICD-10-PCS; principal; 2022-05-22)
PROC: 5A1D70Z Performance of Urinary Filtration, Intermittent, Less than 6 Hours Per Day (ICD-10-PCS; 2022-05-22)
PROC: 0DJ08ZZ Inspection of Upper Intestinal Tract, Via Natural or Artificial Opening Endoscopic (ICD-10-PCS; 2022-05-22)
DX: K55.8 Other vascular disorders of intestine (principal); N18.6 End stage renal disease; R57.8 Other shock; D62 Acute posthemorrhagic anemia; I12.0 Hypertensive chronic kidney disease with stage 5 chronic kidney disease or end stage renal disease; K64.4 Residual hemorrhoidal skin tags; K64.8 Other hemorrhoids; K57.30 Diverticulosis of large intestine without perforation or abscess without bleeding; K25.9 Gastric ulcer, unspecified as acute or chronic, without hemorrhage or perforation; E78.2 Mixed hyperlipidemia; D63.1 Anemia in chronic kidney disease; E11.22 Type 2 diabetes mellitus with diabetic chronic kidney disease; E11.51 Type 2 diabetes mellitus with diabetic peripheral angiopathy without gangrene; K59.00 Constipation, unspecified; Z88.1 Allergy status to other antibiotic agents; Z88.8 Allergy status to other drugs, medicaments and biological substances; Z79.899 Other long term (current) drug therapy; Z79.82 Long term (current) use of aspirin; Z79.4 Long term (current) use of insulin; Z89.512 Acquired absence of left leg below knee; Z89.611 Acquired absence of right leg above knee; Z83.3 Family history of diabetes mellitus; Z82.49 Family history of ischemic heart disease and other diseases of the circulatory system; Z99.2 Dependence on renal dialysis
CPT/HCPCS: 36415; 36416; 36430; 74174; 80048; 80053; 83605; 83735; 85025; 85610; 85730; 86850; 86900; 86901; 88305; 90935; 93005; 93010; 94760; 96374; 96375; 97139; C9113; G0257; G0378; J1170; J1611; J1643; J1644; J1815; J2405; J2704; J3010; J3490; J7042; J7050; J7070; P9016; Q5105; Q9967